=== PATIENT | female | born 1945 | race Caucasian/White ===

== ENCOUNTER 2018-01-12 12:58 | Inpatient (IN) | payer MEDICARE, OTHER, MEDICAID ==
[~2018-01-12] VITALS: Ht 160 cm; Wt 56.2 kg
--- OUTSIDE RECORDS SUMMARY | 2018-01-12 13:08 | XMS REPORT | Continuity of Care Document ---
Author Author [facility] Organization [facility] Address Unknown Phone Unavailable Allergies Active Description Code Type Severity Reaction Onset Reported/Identified Relationship to Patient Clinical Status Yes NKANo Known Allergies NKA Miscellaneous Allergy Unknown N/A 10/09/2008 Medications There is no data. Problems Date Dx Coded Attending Type Code Diagnosis Diagnosed By 03/10/2015 LUCIUS, BOBAN N Ot 518.89 03/10/2015 LUCIUS, BOBAN N Ot 585.3 03/10/2015 LUCIUS, BOBAN N Ot 682.4 03/10/2015 LUCIUS, BOBAN N Ot 715.90 03/10/2015 LUCIUS, BOBAN N Ot 733.00 03/10/2015 LUCIUS, BOBAN N Ot 737.30 03/10/2015 LUCIUS, BOBAN N Ot V10.05 03/10/2015 LUCIUS, BOBAN N Ot V58.69 03/10/2015 LUCIUS, BOBAN N Ot V67.2 03/24/2015 LUCIUS, BOBAN N Ot 518.89 03/24/2015 LUCIUS, BOBAN N Ot 585.3 03/24/2015 LUCIUS, BOBAN N Ot 682.4 03/24/2015 LUCIUS, BOBAN N Ot 715.90 03/24/2015 LUCIUS, BOBAN N Ot 733.00 03/24/2015 LUCIUS, BOBAN N Ot 737.30 03/24/2015 LUCIUS, BOBAN N Ot V10.05 03/24/2015 LUCIUS, BOBAN N Ot V58.69 03/24/2015 LUCIUS, BOBAN N Ot V67.2 03/26/2015 LUCIUS, BOBAN N Ot 518.89 03/26/2015 LUCIUS, BOBAN N Ot 585.3 03/26/2015 LUCIUS, BOBAN N Ot 682.4 03/26/2015 LUCIUS, BOBAN N Ot 715.90 03/26/2015 LUCIUS, BOBAN N Ot 733.00 03/26/2015 LUCIUS, BOBAN N Ot 737.30 03/26/2015 LUCIUS, BOBAN N Ot V10.05 03/26/2015 LUCIUS, BOBAN N Ot V58.69 03/26/2015 LUCIUS, BOBAN N Ot V67.2 03/26/2015 LUCIUS, BOBAN N Ot 518.89 03/26/2015 LUCIUS, BOBAN N Ot 585.3 03/26/2015 LUCIUS, BOBAN N Ot 682.4 03/26/2015 LUCIUS, BOBAN N Ot 715.90 03/26/2015 LUCIUS, BOBAN N Ot 733.00 03/26/2015 LUCIUS, BOBAN N Ot 737.30 03/26/2015 LUCIUS, BOBAN N Ot V10.05 03/26/2015 LUCIUS, BOBAN N Ot V58.69 03/26/2015 LUCIUS, BOBAN N Ot V67.2 03/26/2015 LUCIUS, BOBAN N Ot 518.89 03/26/2015 LUCIUS, BOBAN N Ot 585.3 03/26/2015 LUCIUS, BOBAN N Ot 682.4 03/26/2015 LUCIUS, BOBAN N Ot 715.90 03/26/2015 LUCIUS, BOBAN N Ot 733.00 03/26/2015 LUCIUS, BOBAN N Ot 737.30 03/26/2015 LUCIUS, BOBAN N Ot V10.05 03/26/2015 LUCIUS, BOBAN N Ot V58.69 03/26/2015 LUCIUS, BOBAN N Ot V67.2 04/01/2015 LUCIUS, BOBAN N Ot 518.89 04/01/2015 LUCIUS, BOBAN N Ot 585.3 04/01/2015 LUCIUS, BOBAN N Ot 682.4 04/01/2015 LUCIUS, BOBAN N Ot 715.90 04/01/2015 LUCIUS, BOBAN N Ot 733.00 04/01/2015 LUCIUS, BOBAN N Ot 737.30 04/01/2015 LUCIUS, BOBAN N Ot V10.05 04/01/2015 LUCIUS, BOBAN N Ot V58.69 04/01/2015 LUCIUS, BOBAN N Ot V67.2 Procedures There is no data. Results There is no data. Encounters ACCT No. Visit Date/Time Discharge Status Pt. Type Provider Facility Loc./Unit Complaint [id number] 02/21/2016 13:08:00 02/21/2016 23:59:59 CLS Preadmit DIAN ESTRADA [facility] ONC [id number] 02/16/2015 13:12:00 02/16/2015 23:59:59 CLS Outpatient BENEDICT KAN [facility] ONC [id number] 02/19/2014 13:51:00 02/19/2014 23:59:59 CLS Outpatient [id number] 02/13/2013 09:26:00 02/13/2013 23:59:59 CLS Outpatient
[2018-01-12] MEDS ORDERED: NS IV 1000 ML 1,000 ML IV SCH (14:00)
--- NOTE | 2018-01-12 14:06 | ED GU-Female ---
General Chief Complaint: -Female Stated Complaint: BLOOD IN URINE AND STOOL Source: patient, family Exam Limitations: physical impairment History of Present Illness Date Seen by Provider: January 12, 2018 Time Seen by Provider: 14:01 Initial Comments This 72-year-old white female presents with blood from her rectum and vagina. The patient has had a previous cancer the colon resected several years ago. 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 The patient has marked kyphoscoliosis. She is a difficult historian. It is unclear whether the bleeding has been occurring from the rectum or vagina. It is unclear when this began. The patient does deny pain fever or chill. She is having intermittent moderately severe cramping type abdominal pain which is poorly localized. There has been no history of vomiting. The patient denies similar episode in the past. The patient's daughter relates that the patient is in need of placement as she has been living by herself and is unable to care for herself. Allergies and Home Medications Allergies Coded Allergies: NKANo Known Allergies (Verified Allergy, Unknown, 01/12/18) Patient Home Medication List Home Medication List Reviewed: Yes Review of Systems Constitutional: no symptoms reported EENTM: No hearing loss, No vision loss Respiratory: No cough Cardiovascular: No chest pain Gastrointestinal: abdominal pain; No diarrhea; melena; No vomiting Genitourinary: denies burning, denies discharge; hematuria : No Musculoskeletal: No back pain, No muscle pain Skin: No change in color, No rash Psychiatric/Neurological: No Symptoms Reported Endocrine: No Symptoms Reported Hematologic/Lymphatic: No Symptoms Reported; Denies Easy Bleeding, Denies Easy Bruising Past Jauybdw-Tvqeug-Lvugib Hx Past Med/Social Hx: Reviewed Nursing Past Med/Soc Hx Patient Social History Recent Foreign Travel: No Contact w/Someone Who Travel: No Past Medical History Reproductive Disorders: No (tumor on ovaries) Physical Exam Vital Signs Vital Signs - First Documented 01/12/18 13:20 Temp 98.0 Pulse 98 Resp 18 B/P (MAP) 117/63 (81) Pulse Ox 98 O2 Delivery Nasal Cannula O2 Flow Rate 2.00 Capillary Refill : General Appearance: cachetic, other (the patient has marked kyphosis cysts of the spine. Her kyphosis does not allow for the patient to lie flat.) HEENT: normal ENT inspection Neck: other (severe kyphosis of the spine) Cardiovascular: regular rate, rhythm Respiratory: decreased breath sounds Rectal: other (rectal exam demonstrated no masses. Stool is guaiac negative.) Pelvic: normal external exam, other (Limited pelvic exam demonstrated no vaginal masses. No blood was noted.) Back: other (marked kyphosis of the back) Extremities: normal range of motion Neurologic/Psychiatric: no motor/sensory deficits Skin: normal color, warm/dry; No rash Progress/Results/Core Measures Suspected Sepsis SIRS Temperature: Pulse: Respiratory Rate: Laboratory Tests 01/12/18 14:25: White Blood Count 6.3 Blood Pressure / Mean: Laboratory Tests 01/12/18 14:25: Creatinine 0.71, INR Comment 1.0, Platelet Count 241, Total Bilirubin 0.3 Results/Orders Lab Results Laboratory Tests Test 01/12/18 13:35 01/12/18 14:25 Range/Units Urine Color YELLOW Urine Clarity SLIGHTLY CLOUDY Urine pH 7 5-9 Urine Specific [place] 1.015 L 1.016-1.022 Urine Protein 3+ H NEGATIVE Urine Glucose (UA) NEGATIVE NEGATIVE Urine Ketones NEGATIVE NEGATIVE Urine Nitrite NEGATIVE NEGATIVE Urine Bilirubin NEGATIVE NEGATIVE Urine Urobilinogen NORMAL NORMAL MG/DL Urine Leukocyte Esterase 3+ H NEGATIVE Urine RBC (Auto) 5+ H NEGATIVE Urine RBC 25-50 H /HPF Urine WBC 50-100 H /HPF Urine Squamous Epithelial Cells 5-10 /HPF Urine Crystals NONE /LPF Urine Bacteria MODERATE H /HPF Urine Casts NONE /LPF Urine Mucus NEGATIVE /LPF Urine Culture Indicated YES White Blood Count 6.3 4.3-11.0 10^3/uL Red Blood Count 3.47 L 4.35-5.85 10^6/uL Hemoglobin 11.1 L 11.5-16.0 G/DL Hematocrit 38 35-52 % Mean Corpuscular Volume 110 H 80-99 FL Mean Corpuscular Hemoglobin 32 25-34 PG Mean Corpuscular Hemoglobin Concent 29 L 32-36 G/DL Red Cell Distribution Width 13.6 10.0-14.5 % Platelet Count 241 130-400 10^3/uL Mean Platelet Volume 9.0 7.4-10.4 FL Neutrophils (%) (Auto) 70 42-75 % Lymphocytes (%) (Auto) 14 12-44 % Monocytes (%) (Auto) 11 0-12 % Eosinophils (%) (Auto) 4 0-10 % Basophils (%) (Auto) 0 0-10 % Neutrophils # (Auto) 4.4 1.8-7.8 X 10^3 Lymphocytes # (Auto) 0.9 L 1.0-4.0 X 10^3 Monocytes # (Auto) 0.7 0.0-1.0 X 10^3 Eosinophils # (Auto) 0.3 0.0-0.3 10^3/uL Basophils # (Auto) 0.0 0.0-0.1 10^3/uL Prothrombin Time 12.9 12.2-14.7 SEC INR Comment 1.0 0.8-1.4 Sodium Level 145 135-145 MMOL/L Potassium Level 3.6 3.6-5.0 MMOL/L Chloride Level 97 L 98-107 MMOL/L Carbon Dioxide Level 42 H 21-32 MMOL/L Anion Gap 6 5-14 MMOL/L Blood Urea Nitrogen 41 H 7-18 MG/DL Creatinine 0.71 0.60-1.30 MG/DL Estimat Glomerular Filtration Rate > 60 BUN/Creatinine Ratio 58 Glucose Level 142 H 70-105 MG/DL Calcium Level 10.0 8.5-10.1 MG/DL Total Bilirubin 0.3 0.1-1.0 MG/DL Aspartate Amino Transf (AST/SGOT) 20 5-34 U/L Alanine Aminotransferase (ALT/SGPT) 13 0-55 U/L Alkaline Phosphatase 57 40-136 U/L Total Protein 6.0 L 6.4-8.2 GM/DL Albumin 3.4 3.2-4.5 GM/DL My Orders Orders - KODAK LANCASTER MD Cbc With Automated Diff (01/12/18 13:58) Comprehensive Metabolic Panel (01/12/18 13:58) Protime With Inr (01/12/18 13:58) Ct Abdomen/Pelvis W (01/12/18 13:58) Ns Iv 1000 Ml (Sodium Chloride 0.9%) (01/12/18 14:00) Ua Culture If Indicated (01/12/18 13:58) Iohexol Injection (Omnipaque 350 Mg/Ml 1 (01/12/18 14:15) Ns (Ivpb) (Sodium Chloride 0.9%) (01/12/18 14:15) Urine Culture (01/12/18 13:35) Ceftriaxone Injection (Rocephin Injectio (01/12/18 16:00) Medications Given in ED Current Medications Medications Dose Ordered Sig/Christopher Route Start Time Stop Time Status Last Admin Dose Admin Iohexol 100 ml ONCE ONCE IV 01/12/18 14:15 01/12/18 14:16 DC 01/12/18 15:26 75 ML Sodium Chloride 250 ml ONCE ONCE IV 01/12/18 14:15 01/12/18 14:16 DC 01/12/18 15:26 80 ML Vital Signs/I&O 01/12/18 13:20 Temp 98.0 Pulse 98 Resp 18 B/P (MAP) 117/63 (81) Pulse Ox 98 O2 Delivery Nasal Cannula O2 Flow Rate 2.00 Capillary Refill : Progress Note : Time: 16:02 Progress Note The patient, who is oxygen dependent, arrived without 02. Patient sat on arrival was [address] of abdomen demonstrated apparent left pyelonephritis. Patient received a gram Rocephin IV. I placed a call to Dr. Henry for the patient. I have written for IV Rocephin. Patient was admitted to Dr. Henry's service for further evaluation and care. Departure Communication (Admissions) Time/Spoke to Admitting Phy: 16:05 Dr. Henry. Impression Primary Impression: Hypoxia Additional Impression: Pyelonephritis Disposition: ADMITTED INPATIENT Condition: Improved Admissions Decision to Admit Reason: Admit from ER (General) Decision to Admit/Date: January 12, 2018 Time/Decision to Admit Time: 16:18 Departure-Patient Inst. Referrals: MARIO QUINTERO DO (PCP/Family) Primary Care Physician KODAK LANCASTER MD January 12, 2018 14:05
[2018-01-12] MEDS ORDERED: IOHEXOL 350 MG/ML 100 ML (OMNIPAQUE 350) VIAL IV ONE (14:15)
[2018-01-12] MEDS ORDERED: NS 250 ML (IVPB) BAG IV ONE (14:15)
[2018-01-12 14:34] LABS: BASOPHILS % (AUTO) 0 % (0-10); EOSINOPHILS # (AUTO) 0.3 10^3/uL (0.0-0.3); EOSINOPHILS % (AUTO) 4 % (0-10); HEMATOCRIT 38 % (35-52); HEMOGLOBIN 11.1 G/DL (11.5-16.0); LYMPHOCYTES # (AUTO) 0.9 X 10^3 (1.0-4.0); LYMPHOCYTES % (AUTO) 14 % (12-44); MEAN CORPUSCULAR HEMOGLOBIN 32 PG (25-34); MEAN CORPUSCULAR HGB CONC 29 G/DL (32-36); MEAN CORPUSCULAR VOLUME 110 FL (80-99); MONOCYTES # (AUTO) 0.7 X 10^3 (0.0-1.0); MONOCYTES % (AUTO) 11 % (0-12); NEUTROPHILS # (AUTO) 4.4 X 10^3 (1.8-7.8); NEUTROPHILS % (AUTO) 70 % (42-75); PLATELET COUNT 241 10^3/uL (130-400); RED BLOOD COUNT 3.47 10^6/uL (4.35-5.85); RED CELL DISTRIBUTION WIDTH 13.6 % (10.0-14.5); WHITE BLOOD COUNT 6.3 10^3/uL (4.3-11.0)
[2018-01-12 14:45] LABS: PROTHROMBIN TIME PATIENT 12.9 SEC (12.2-14.7)
[2018-01-12 14:49] LABS: BUN/CREATININE RATIO 58; CARBON DIOXIDE 42 MMOL/L (21-32); CHLORIDE 97 MMOL/L (98-107); CREATININE SERUM 0.71 MG/DL (0.60-1.30); GFR ESTIMATED > 60; GLUCOSE 142 MG/DL (70-105); POTASSIUM 3.6 MMOL/L (3.6-5.0); SODIUM 145 MMOL/L (135-145)
[2018-01-12 14:50] LABS: ALANINE AMINOTRANSFERASE 13 U/L (0-55); ALBUMIN 3.4 GM/DL (3.2-4.5); ALKALINE PHOSPHATASE 57 U/L (40-136); BILIRUBIN,TOTAL 0.3 MG/DL (0.1-1.0)
[2018-01-12 15:10] LABS: BILIRUBIN,URINE NEGATIVE (NEGATIVE); CLARITY,URINE SLIGHTLY CLOUDY; COLOR,URINE YELLOW; GLUCOSE, URINE (UA) NEGATIVE (NEGATIVE); KETONES,URINE NEGATIVE (NEGATIVE); LEUKOCYTE ESTERASE ,URINE 3+ (NEGATIVE); NITRITE,URINE NEGATIVE (NEGATIVE); PH,URINE 7 (5-9); PROTEIN,URINE 3+ (NEGATIVE); UROBILINOGEN,URINE NORMAL (NORMAL)
[2018-01-12 15:19] LABS: RBC,URINE 25-50 /HPF; WBC,URINE 50-100 /HPF
[2018-01-12 15:20] LABS: BACTERIA,URINE MODERATE /HPF
--- NOTE | 2018-01-12 15:51 | Diagnostic Imaging Report ---
PROCEDURE: CT abdomen and pelvis with contrast. TECHNIQUE: Multiple contiguous axial images were obtained through the abdomen and pelvis after administration of intravenous contrast. INDICATION: Hematuria. History of colon cancer. CORRELATION STUDY: None. FINDINGS: There is rather marked severity scoliosis with significant distortion of the lower chest, abdominal and pelvic anatomy. Lung bases with asymmetric areas of atelectasis, likely largely attributable to the scoliosis. No definitive basilar infiltrate. There is, however, presence of small left pleural effusion with likely minimal adjacent atelectasis. Heart size is enlarged. Slight heterogeneous attenuation of the liver parenchyma. No focal lesion. The spleen, gallbladder and pancreas appear generally unremarkable. Common bile duct is very mildly prominent. Nonobstructing stone of inferior pole of the right kidney measures 14 mm. There does appear to be slight asymmetric areas of enhancement about the renal parenchyma, particularly the left kidney, superiorly. Additionally, there is probable small cyst. No definitive evidence for obstructive uropathy. However, there is some limited overall contrast filling in the collecting system despite delayed imaging. Abdominal aorta with a significant tortuous course following the curvature of the spine. Mild wall calcification. No aneurysmal dilatation. Moderate severity fecal retention. Anastomotic suture line in the right mid abdomen. There is suggestion of some wall thickening about the duodenum. No definitive evidence for obstruction. Urinary bladder is unremarkable. Uterus appears absent. There is compression deformity of L3 vertebral body, age indeterminate but likely nonacute. IMPRESSION: 1. Questionable asymmetric enhancement of the superior pole of the left kidney. The possibility of pyelonephritis would be difficult to exclude. No obstructing right renal stone. 2. Contracted gallbladder. Common bile duct is mildly prominent but otherwise unremarkable. 3. Surgical changes of anastomotic suture line in right mid abdomen. There does appear to be some wall thickening of the duodenum which can be associated with underlying duodenitis. Correlation for symptoms. 4. Small right pleural effusion. Dictated by: Dictated on workstation # [id number]
[2018-01-12] MEDS ORDERED: cefTRIAXone INJECTION 1,000 MG in NS (IVPB) 50 ML IV ONE (16:00)
[2018-01-12 17:35] VITALS: BP 137/82
[2018-01-12] MEDS: NS IV 1000 ML 1,000 ML IV SCH (17:58)
[2018-01-12] MEDS ORDERED: TOPI25TA10 PO (18:20)
[2018-01-12] MEDS ORDERED: POTA20TA8 PO (18:20)
[2018-01-12] MEDS ORDERED: OXYB5TAB9 PO (18:20)
[2018-01-12] MEDS ORDERED: TRAM50TA2 PO (18:20)
[2018-01-12] MEDS ORDERED: AMIT25TA9 PO (18:20)
[2018-01-12] MEDS ORDERED: HYDR50TA3 PO (18:33)
[2018-01-12] MEDS ORDERED: CALC-225 PO (18:33)
[2018-01-12] MEDS ORDERED: ASPI-586 PO (18:33)
[2018-01-12] MEDS ORDERED: LEVO88TA54 PO (18:33)
[2018-01-12] MEDS ORDERED: BACL10TA PO (18:33)
[2018-01-12] MEDS ORDERED: OMG1KC PO (18:33)
[2018-01-12] MEDS ORDERED: MELO15TA39 PO (18:33)
[2018-01-12] MEDS ORDERED: RT-ALBUINH IN (18:33)
[2018-01-12] MEDS ORDERED: PANT40TA3 PO (18:33)
[2018-01-12] MEDS ORDERED: CITA10TA7 PO (18:33)
[2018-01-12] MEDS ORDERED: PRAV40TA2 PO (18:33)
[2018-01-12] MEDS ORDERED: CHOL5000 PO (18:38)
[2018-01-12] MEDS ORDERED: FERROUS (18:38)
[2018-01-12] MEDS ORDERED: TIOT18CA2 IH (18:38)
[2018-01-12] MEDS ORDERED: FLUT1DIS28 IH (18:38)
[2018-01-12 19:30] VITALS: BP 113/55
[2018-01-12] MEDS ORDERED: AMITRIPTYLINE HCL 25 MG PO SCH (21:00)
[2018-01-12] MEDS ORDERED: NON-FORMULARY MEDICATION 1 EA EA (Oxybutynin Chloride 5 MG) PO SCH (21:00)
[2018-01-12] MEDS ORDERED: OXYBUTYNIN (DITROPAN) 5 MG TAB ONE (21:21)
[2018-01-12] MEDS ORDERED: AMITRIPTYLINE 25 MG (ELAVIL) TAB PO ONE (21:21)
[2018-01-12] MEDS: toPIRamate 25 MG (TOPAMAX) TAB PO SCH (21:27)
[2018-01-12] MEDS: KCL 20 MEQ TAB (K-DUR) PO SCH (21:27)
[2018-01-13] VITALS: BP 124/57
[2018-01-13 04:00] VITALS: BP 99/52
[2018-01-13 04:39] LABS: BILIRUBIN,URINE NEGATIVE (NEGATIVE); CLARITY,URINE VERY CLOUDY; COLOR,URINE AMBER; GLUCOSE, URINE (UA) NEGATIVE (NEGATIVE); KETONES,URINE NEGATIVE (NEGATIVE); LEUKOCYTE ESTERASE ,URINE 3+ (NEGATIVE); NITRITE,URINE NEGATIVE (NEGATIVE); PH,URINE 6.5 (5-9); PROTEIN,URINE 3+ (NEGATIVE); UROBILINOGEN,URINE NORMAL (NORMAL)
[2018-01-13 04:43] LABS: BACTERIA,URINE LARGE /HPF; RBC,URINE 50-100 /HPF; SQUAMOUS EPITHELIAL CELL,UR 0-2 /HPF
[2018-01-13 04:53] LABS: BASOPHILS % (AUTO) 0 % (0-10); EOSINOPHILS # (AUTO) 0.2 10^3/uL (0.0-0.3); EOSINOPHILS % (AUTO) 3 % (0-10); HEMATOCRIT 39 % (35-52); LYMPHOCYTES # (AUTO) 0.7 X 10^3 (1.0-4.0); LYMPHOCYTES % (AUTO) 10 % (12-44); MEAN CORPUSCULAR HEMOGLOBIN 32 PG (25-34); MEAN CORPUSCULAR HGB CONC 28 G/DL (32-36); MEAN CORPUSCULAR VOLUME 114 FL (80-99); MEAN PLATELET VOLUME 9.3 FL (7.4-10.4); MONOCYTES % (AUTO) 14 % (0-12); NEUTROPHILS # (AUTO) 5.2 X 10^3 (1.8-7.8); NEUTROPHILS % (AUTO) 73 % (42-75); PLATELET COUNT 233 10^3/uL (130-400); RED BLOOD COUNT 3.45 10^6/uL (4.35-5.85); RED CELL DISTRIBUTION WIDTH 13.9 % (10.0-14.5); WHITE BLOOD COUNT 7.1 10^3/uL (4.3-11.0)
[2018-01-13 05:03] LABS: ALANINE AMINOTRANSFERASE 17 U/L (0-55); ALBUMIN 3.4 GM/DL (3.2-4.5); ALKALINE PHOSPHATASE 76 U/L (40-136); BILIRUBIN,TOTAL 0.2 MG/DL (0.1-1.0); BUN/CREATININE RATIO 53; CALCIUM 9.2 MG/DL (8.5-10.1); CARBON DIOXIDE 35 MMOL/L (21-32); CHLORIDE 101 MMOL/L (98-107); CREATININE SERUM 0.68 MG/DL (0.60-1.30); GFR ESTIMATED > 60; GLUCOSE 144 MG/DL (70-105); POTASSIUM 4.5 MMOL/L (3.6-5.0); SODIUM 145 MMOL/L (135-145); TOTAL PROTEIN 5.9 GM/DL (6.4-8.2)
[2018-01-13] MEDS: NS IV 1000 ML 1,000 ML IV SCH ×2 (05:18→18:41)
[2018-01-13 08:00] VITALS: BP 120/62
[2018-01-13] MEDS ORDERED: OXYBUTYNIN (DITROPAN) 5 MG TAB PO SCH (09:00)
[2018-01-13] MEDS: toPIRamate 25 MG (TOPAMAX) TAB PO SCH ×3 (09:48→21:26)
[2018-01-13] MEDS: LEVOTHYROXINE 88 MCG (LEVOTHORID) TAB PO NR ×2 (09:48→12:37)
[2018-01-13] MEDS: KCL 20 MEQ TAB (K-DUR) PO SCH ×2 (09:48→12:37)
[2018-01-13 12:00] VITALS: BP 128/63
--- NOTE | 2018-01-13 12:09 | History & Physical-Hospitalist ---
History of Present Illness HPI/Chief Complaint Mrs. Orourke is a frail 72-year-old white female with severe scoliosis who was apparently brought in by family members last night after there was report of either vaginal or rectal bleeding. It is not clear and the patient was extremely poor historian who appeared to be slightly confused. There was no evidence for any ongoing bleeding but evaluation revealed significant pyuria with bacteriuria and CT scan findings suspicious for left sided pyelonephritis. Patient was subsequently admitted for treatment of her infection. She was sleeping soundly upon my arrival and did not arouse to gentle stimulation. She appeared to be in no acute distress with stable vital signs and oxygen level. Her daughter states that she has not been doing well at all and no longer has inability to care for herself. Date Seen 01/13/18 Time Seen by Provider: 10:30 Attending Physician Kodak Gould MD PCP Antione Richardson DO Referring Physician Date of Admission January 12, 2018 at 16:00 Home Medications & Allergies Home Medications Reviewed patient Home Medication Reconciliation performed by pharmacy medication reconciliations psychiatric technician assistant and/or nursing. Patients Allergies have been reviewed. Allergies Allergies Coded Allergies NKANo Known Allergies (Verified Allergy, Unknown, 01/12/18) Past Mqajsiq-Dodlqd-Herjir Hx Past Med/Social Hx: Reviewed Nursing Past Med/Soc Hx Patient Social History Alcohol Use: Denies Use Recreational Drug Use: No Smoking Status: Never a Smoker 2nd Hand Smoke Exposure: No Physical Abuse Screen: No Sexual Abuse: No Recent Foreign Travel: No Contact w/other who traveled: No Recent Hopitalizations: No Recent Infectious Disease Expo: No Immunizations Up To Date Tetanus Booster (TDap): Unknown Date of Pneumonia Vaccine: Jun 03, 2017 Seasonal Allergies Seasonal Allergies: No Past Medical History Reproductive: No (tumor on ovaries) Sexually Transmitted Disease: No HIV/AIDS: No Female Reproductive Disorders: Denies Genitourinary: UTI-Chronic Musculoskeletal: Back Injury, Scoliosis, Chronic Back Pain, Contracture Cancer: Colon Did You Recieve Any Treatments: Yes What Type of Treatment Did You: Chemotherapy History of Blood Disorders: No Review of Systems Constitutional: see HPI Physical Exam Physical Exam Vital Signs Vital Signs - First Documented 01/12/18 13:20 Temp 98.0 Pulse 98 Resp 18 B/P (MAP) 117/63 (81) Pulse Ox 98 O2 Delivery Nasal Cannula O2 Flow Rate 2.00 Capillary Refill : Less Than 3 SecondsLess Than 3 Seconds General Appearance: No Apparent Distress, Chronically ill, Thin Neck: Other (Severely angulated neck position forward flexed no JVD adenopathy or bruits noted.) Respiratory: Chest Non Tender, Lungs Clear, Normal Breath Sounds, No Accessory Muscle Use, No Respiratory Distress Cardiovascular: Regular Rate, Rhythm, No Edema, No Gallop, No JVD, No Murmur, Normal Peripheral Pulses Gastrointestinal: Normal Bowel Sounds, No Organomegaly, No Pulsatile Mass, Non Tender, Soft Extremity: No Pedal Edema, Other (Significant extremity muscle wasting noted nurse reports findings compatible with stage I coccygeal and gluteal decubitus as there are some nonblanching erythema there is irritation from apparent chronic incontinence.) Skin: Warm/Dry, Pallor Results Results/Procedures Labs Laboratory Tests 01/12/18 14:25 01/13/18 04:10 Patient resulted labs reviewed. Assessment/Plan Admission Diagnosis 1. Urinary tract infection with likely pyelonephritis and Sirs. Continue IV Rocephin culture and sensitivity pending. 2. Severe scoliosis apparently long-standing. 3. Multifactorial failure to thrive. 4. Urinary retention aggravating number 1 relative contraindication to oxybutynin will hold. 5. Sedation since receiving usual amitriptyline dose will switch to a when necessary order of 10 mg at at bedtime. 6. Patient will need care home home placement on discharge. Admission Status: Inpatient Order (span 2 midnights) Reason for Inpatient Admission: See admission diagnosis Critical Care Critically Ill Patient Clinical Quality Measures DVT/VTE Risk/Contraindication: Risk Factor Score Per Nursin RFS Level Per Nursing on Admit: 4+=Very High KODAK GOULD MD January 13, 2018 12:09
[2018-01-13] MEDS ORDERED: RT-ALBUTEROL SULF 2.5 MG/3 ML PRE-MIX VIAL INH PRN (12:15)
[2018-01-13 16:13] VITALS: BP 146/71
[2018-01-13] MEDS ORDERED: cefTRIAXone INJECTION 1,000 MG in NS (IVPB) 50 ML IV SCH (17:00)
[2018-01-13 20:04] VITALS: BP 158/80
[2018-01-13] MEDS ORDERED: AMITRIPTYLINE 10 MG (ELAVIL) TAB PO PRN (21:00)
[2018-01-13] MEDS ORDERED: AMITRIPTYLINE 25 MG (ELAVIL) TAB PO SCH (21:00)
[2018-01-13] MEDS ORDERED: lisINopril 10 MG (PRINIVIL) TABLET ONE (21:17)
[2018-01-13] MEDS: lisINopril 10 MG (PRINIVIL) TABLET PO SCH (21:25)
[2018-01-14] VITALS (9 sets, daily range): BP systolic 137–186; BP diastolic 70–90
[2018-01-14 04:33] LABS: BASOPHILS % (AUTO) 0 % (0-10); EOSINOPHILS % (AUTO) 0 % (0-10); HEMATOCRIT 39 % (35-52); HEMOGLOBIN 11.3 G/DL (11.5-16.0); LYMPHOCYTES # (AUTO) 0.7 X 10^3 (1.0-4.0); LYMPHOCYTES % (AUTO) 11 % (12-44); MEAN CORPUSCULAR HEMOGLOBIN 33 PG (25-34); MEAN CORPUSCULAR HGB CONC 29 G/DL (32-36); MEAN CORPUSCULAR VOLUME 112 FL (80-99); MEAN PLATELET VOLUME 9.3 FL (7.4-10.4); MONOCYTES # (AUTO) 0.6 X 10^3 (0.0-1.0); MONOCYTES % (AUTO) 9 % (0-12); NEUTROPHILS # (AUTO) 5.2 X 10^3 (1.8-7.8); NEUTROPHILS % (AUTO) 80 % (42-75); PLATELET COUNT 206 10^3/uL (130-400); RED BLOOD COUNT 3.47 10^6/uL (4.35-5.85); RED CELL DISTRIBUTION WIDTH 13.5 % (10.0-14.5); WHITE BLOOD COUNT 6.5 10^3/uL (4.3-11.0)
[2018-01-14 04:53] LABS: BUN/CREATININE RATIO 58; CALCIUM 9.2 MG/DL (8.5-10.1); CARBON DIOXIDE 34 MMOL/L (21-32); CHLORIDE 101 MMOL/L (98-107); CREATININE SERUM 0.52 MG/DL (0.60-1.30); GFR ESTIMATED > 60; GLUCOSE 157 MG/DL (70-105); POTASSIUM 3.5 MMOL/L (3.6-5.0); SODIUM 145 MMOL/L (135-145)
[2018-01-14] MEDS: LEVOTHYROXINE 88 MCG (LEVOTHORID) TAB PO SCH (05:33)
[2018-01-14] MEDS: toPIRamate 25 MG (TOPAMAX) TAB PO SCH ×2 (09:56→21:05)
--- NOTE | 2018-01-14 14:06 | Progress Note-Hospitalist ---
Subjective HPI/CC On Admission Date Seen by Provider: January 14, 2018 Time Seen by Provider: 11:15 Mrs. Orourke is a frail 72-year-old white female with severe scoliosis who was apparently brought in by family members last night after there was report of either vaginal or rectal bleeding. It is not clear and the patient was extremely poor historian who appeared to be slightly confused. There was no evidence for any ongoing bleeding but evaluation revealed significant pyuria with bacteriuria and CT scan findings suspicious for left sided pyelonephritis. Patient was subsequently admitted for treatment of her infection. She was sleeping soundly upon my arrival and did not arouse to gentle stimulation. She appeared to be in no acute distress with stable vital signs and oxygen level. Her daughter states that she has not been doing well at all and no longer has inability to care for herself. Subjective/Events-last exam Pt complaints of a headache and that the bed is uncomfortable. Otherwise she has no complaints. Discussed potential need for SNF at [place]. Objective Exam Vital Signs Vital Signs Date Time Temp Pulse Resp B/P (MAP) Pulse Ox O2 Delivery O2 Flow Rate FiO2 01/14/18 13:32 97.9 103 18 177/86 (116) 99 Nasal Cannula 2.00 Capillary Refill : Less Than 3 SecondsLess Than 3 Seconds General Appearance: No Apparent Distress, Chronically ill Neck: Other (severe angulation due to scoliosis) Respiratory: Lungs Clear, No Respiratory Distress Gastrointestinal: Normal Bowel Sounds, Non Tender, Soft Back: Other (severe scoliosis noted) Extremity: No Calf Tenderness, No Pedal Edema Neurologic/Psychiatric: Alert, Oriented x3 Results/Procedures Lab Laboratory Tests 01/14/18 04:20 Patient resulted labs reviewed. Assessment/Plan Assessment and Plan Assess & Plan/Chief Complaint 1. Urinary tract infection due to proteus- will transition to Keflex per sensitivities 2. Severe scoliosis apparently long-standing- will consult PT/OT 3. Multifactorial failure to thrive. 4. Oversedation with reported home dose of Elavil. 10mg now ordered prn only 6. Debility- will likely need SNF at [place]. Social work consulted Clinical Quality Measures DVT/VTE Risk/Contraindication: Risk Factor Score Per Nursin RFS Level Per Nursing on Admit: 4+=Very High ANDREW CHOUDHARY MD January 14, 2018 2:06 pm
[2018-01-14] MEDS: NS IV 1000 ML 1,000 ML IV SCH (14:27)
[2018-01-14] MEDS: CEPHALEXIN 250 MG (KEFLEX) CAP PO SCH ×2 (15:16→21:05)
--- NOTE | 2018-01-14 16:01 | Physical Therapy Evaluation ---
PT Evaluation-General Medical Diagnosis Admission Date January 12, 2018 at 16:00 Medical Diagnosis: polynephritis, UTI Onset Date: January 12, 2018 Therapy Diagnosis Therapy Diagnosis: weakness Height/Weight Height (Feet): 5 Height (Inches): 3.00 Weight (Pounds): 124 Weight (Ounces): 0.0 Precautions Precautions/Isolations: Fall Prevention, Standard Precautions, Pressure Ulcer Weight Bear Status Right Lower Extremity: Right Weight Bearing/Tolerated Left Lower Extremity: Left Weight Bearing/Tolerated Referral Physician: Christopher Reason for Referral: Evaluation/Treatment Medical History Additional Medical History severe scoliosis, UTI, colon CA, failure to thrive Current History Pt admitted with above diagnosis. Failure to thrive at home. Family feels alf placement may be indicated. Reviewed History: Yes Social History Home: Single Level Current Living Status: Alone Entry Into Home: Stairs With Railing Prior/Core FIM Prior Level of Function Functional [place] Measure 0=Not Assessed/NA 4=Minimal Assistance 1=Total Assistance 5=Supervision or Setup 2=Maximal Assistance 6=Modified [place] 3=Moderate Assistance 7=Complete [place] Physician and family report she was living at home mod indep with all mobility. Good family support per family members present. PT Evaluation-Current Subjective "I'm tired." "I don't want to get up right now." Eventually agrees to participate with PT. Family present and strongly encouraged participation. Pain Numeric Pain Scale: 0-No Pain Location: No Pain Reported Objective Patient Orientation: Person, Confused (slightly; she is difficult to understand and soft spoken) Problem Solving: Fair Attachments: Oxygen, IV ROM/Strength ROM Lower Extremities WFL for transfers and gait Strength Lower Extremities strength B LE is grossly 3/5 throughout. LImited functional activity tolerance as well. Integumentary/Posture Integumentary refer to nursing notes. Bowel Incontinence: No Bladder Incontinence: No Posture Severe thoracic kyphosis; head is forward and rotated right to the extent that her chin rests on her chest. right scapula protracted and spine rotated. slumped at lumbar spine in sitting. Neuromuscular (Tone, Coordination, Reflexes) functional for transfers and gait progresion. Sensory Vision: Functional Hearing: Functional Hand Dominance: Right Sensation Right Lower Extremit: Intact Sensation Left Lower Extremity: Intact Transfers Functional [place] Measure 0=Not Assessed/NA 4=Minimal Assistance 1=Total Assistance 5=Supervision or Setup 2=Maximal Assistance 6=Modified [place] 3=Moderate Assistance 7=Complete [place] Transfers (B, C, W/C) (FIM): 2 Supine to/from Sit: 2 Sit to/from Stand: 2 max assist with all transfers and bed mobility; limited by gross weakness, decreased problem solving/participation and her postural deficits make moving difficult. Pt stood EOB for a few minutes with mod assist for balance and using FWW. Unable to sidestep or take steps forward. Balance Sitting Static: Fair Sitting Dynamic: Fair Standing Static: Fair Standing Dynamic: Fair Assessment/Needs Pt presents with a decline in functional transfers and mobility with gross weakness. She was able to mobilize in her home at [facility]; so will beneift from skilled PT intervention to work on functional mobility to allow her to return to mod indep mobility. Rehab Potential: Guarded PT [facility] Goals Watchstander Goals PT Watchstander Goals Time Frame: January 19, 2018 Transfers (B,C,W/C) (FIM): 4 Gait (FIM): 2 Gait distance (FIM): 1=up to 49 ft Distance: 20 ft Gait Assistive Device: FWW PT Plan Problem List Problem List: Activity Tolerance, Functional Strength, Safety, Balance, Gait, Transfer, Bed Mobility Treatment/Plan Treatment Plan: Continue Plan of Care Treatment Plan: Bed Mobility, Education, Functional Activity Golden, Functional Strength, Therapeutic Exercise, Transfers Treatment Duration: January 19, 2018 Frequency: 6 times per week Estimated Hrs Per Day: .25 hour per day Patient and/or Family Agrees t: Yes Safety Risks/Education Patient Education: Safety Issues Teaching Recipient: Patient Teaching Methods: Discussion Response to Teaching: Reinforcement Needed Discharge Recommendations Therapy D/C Recommendations: Prison (TCU/NH) Time/GCodes Time In: 1445 Time Out: 1505 Total Billed Treatment Time: 20 Total Billed Treatment visit EVM 20 BROOKE LOPEZ PT January 14, 2018 16:01
[2018-01-14] MEDS: lisINopril 10 MG (PRINIVIL) TABLET PO SCH (21:05)
[2018-01-15] VITALS: BP 149/77
[2018-01-15] MEDS: LEVOTHYROXINE 88 MCG (LEVOTHORID) TAB PO SCH (05:10)
[2018-01-15 08:00] VITALS: BP 157/74
--- NOTE | 2018-01-15 08:58 | Occupational Therapy Eval ---
OT Evaluation-General/PLF Medical Diagnosis Admission Date January 12, 2018 at 16:00 Medical Diagnosis: pyelonephritis, UTI Onset Date: January 12, 2018 Therapy Diagnosis Therapy Diagnosis: decr self care, weakness, decr funct mobility, decr act anthony Height/Weight Height (Feet): 5 Height (Inches): 3.00 Weight (Pounds): 124 Weight (Ounces): 0.0 Precautions Precautions/Isolations: Fall Prevention, Standard Precautions, Pressure Ulcer Safety Interventions: Bed Exit Alarm Referral Physician: Christopher Referral Reason: Evaluation/Treatment Medical History Pertinent Medical History: Arthritis, CAD, COPD Additional Medical History Colon and ovarian cancer. Sever kyphosis. Chronic back pain. Frequent falls. Depression. Decr vision and hearing Current History ADmitted through ED with bleeding from rectum or vagina. Failure to thrive at home alone. Anticipated discharge to [facility] today. Reviewed History: Yes Social History Home: Single Level Current Living Status: Alone Entry Into Home: Stairs With Railing ADL-Prior Level of Function ADL PLOF Comments Pt reported that she was able to manage her basic self care needs at home and didn't drive. Currently lives alone but previously was in NH for several years. DME/Equipment Comments Unknown equipment OT Current Status Subjective Pt seen in room, up in bed, agreeable to OT. Reported pain in neck and pillow positioned to support head Appearance Lethargic but able to answer some questions like but not current year Current Hand Dominance: Right Upper Extremity ROM Grossly functional except limited shoulder flex. Upper Extremity Strength Pt had difficulty following instructions for strength testing. Grossly 3/5 bilat ADL-Treatment ADL-Current Pt needed assistance to get a drink of water. Nursing reported that she needs help eating and is incontinent. Pt reported max assist to sit EOB and mod assist to stand but unable to take steps. Limited by scoliosis and neck position. Functional [place] Measure 0=Not Assessed/NA 4=Minimal Assistance 1=Total Assistance 5=Supervision or Setup 2=Maximal Assistance 6=Modified [place] 3=Moderate Assistance 7=Complete IndependenceIRFPAI Quality Coding Scale 6 Independent with activity with or without an assistive device 5 Patient requires set up or clean up by helper. Patient completes activity by themselves 4 Supervision or touching assist (CGA). [place] provide cues , steadying assist 3 The helper provides less than half the effort to complete the activity 2 The helper provides more than half the effort to complete the activity 1 Dependent. The helper does all the effort to complete an activity 7 Patient refused to complete or attempt activity 9 The patient did not perform the activity before the current illness or injury 88 Not attempted due to Medical conditions or safety concerns Education OT Patient Education: Purpose of tx/functional activities, Rehab process Teaching Recipient: Patient Teaching Methods: Discussion Response to Teaching: Verbalize Understanding OT Halfway Goals Chief Of Pediatric Urology Goals Time Frame: January 18, 2018 Eating (FIM): 5 Grooming(FIM): 5 Upper Body Dressing(FIM): 4 Lower Body Dressing(FIM): 3 Toileting(FIM): 3 Toilet/Commode Transfer(FIM): 3 Additional Goals: 2-Verbalize Understanding, 3-ImproveStrength/Golden 1=Demonstrate adherence to instructed precautions during ADL tasks. 2=Patient will verbalize/demonstrate understanding of assistive devices/ modifications for ADL. 3=Patient will improve strength/tolerance for activity to enable patient to perform ADL's. OT Education/Plan Problem List/Assessment Assessment: Decreased Activ Tolerance, Decreased UE Strength, Dependent Transfers, Impaired Self-Care Skills Pt would benefit from skilled OT to increase her independence in basic self care Discharge Recommendations Plan/Recommendations: Continue POC Therapy D/C Recommendations: Longterm (TCU/NH) Treatment Plan/Plan of Care Treatment,Training & Education: Yes Patient would benefit from OT for education, treatment and training to promote independence in ADL's, mobility, safety and/or upper extremity function for ADL' s. Plan of Care: ADL Retraining, Functional Mobility, UE Funct Exercise/Act Treatment Duration: January 18, 2018 Frequency: 4 times per week Estimated Hrs Per Day: .5 hour per day Agreement: Yes Rehab Potential: Guarded Time/GCodes Start Time: 08:40 Stop Time: 08:55 Total Time Billed (hr/min): 15 Billed Treatment Time visit, 15 minutes evaluation moderate intensity LOBO BOSE OT January 15, 2018 08:58
[2018-01-15] MEDS ORDERED: CEPH250C PO (09:19)
[2018-01-15] MEDS: toPIRamate 25 MG (TOPAMAX) TAB PO SCH (09:55)
[2018-01-15] MEDS: CEPHALEXIN 250 MG (KEFLEX) CAP PO SCH (09:55)
--- NOTE | 2018-01-15 10:27 | Physical Therapy Daily Note ---
PT Daily Note-Current Subjective Patient agrees to exercises. Pain Numeric Pain Scale: 0-No Pain Location: No Pain Reported Mental Status Patient Orientation: Confused Attachments: Oxygen Transfers Functional [place] Measure 0=Not Assessed/NA 4=Minimal Assistance 1=Total Assistance 5=Supervision or Setup 2=Maximal Assistance 6=Modified [place] 3=Moderate Assistance 7=Complete IndependenceIRFPAI Quality Coding Scale 6 Independent with activity with or without an assistive device 5 Patient requires set up or clean up by helper. Patient completes activity by themselves 4 Supervision or touching assist (CGA). [place] provide cues , steadying assist 3 The helper provides less than half the effort to complete the activity 2 The helper provides more than half the effort to complete the activity 1 Dependent. The helper does all the effort to complete an activity 7 Patient refused to complete or attempt activity 9 The patient did not perform the activity before the current illness or injury 88 Not attempted due to Medical conditions or safety concerns Transfers (B, C, W/C) (FIM): 2 Scootin Sit to/from Stand: 2 Bed to/from Chair: 2 Weight Bearing Right Lower Extremity: Right Weight Bearing/Tolerated Left Lower Extremity: Left Weight Bearing/Tolerated Exercises Seated Therapy Exercises: Ankle pumps, Long arc quads Seated Reps: 15 (2 sets AAROM) Assessment Patient continues to require maximum assist for all mobility. Patient up in recliner with needs met. Plan dismissal to [place] this week. PT Office Helper Clerical Goals Office Helper Clerical Goals PT Shelter Goals Time Frame: January 19, 2018 Transfers (B,C,W/C) (FIM): 4 Gait (FIM): 2 Gait distance (FIM): 1=up to 49 ft Distance: 20 ft Gait Assistive Device: FWW PT Plan Treatment/Plan Treatment Plan: Continue Plan of Care Treatment Plan: Bed Mobility, Education, Functional Activity Golden, Functional Strength, Therapeutic Exercise, Transfers Treatment Duration: January 19, 2018 Frequency: 6 times per week Estimated Hrs Per Day: .25 hour per day Patient and/or Family Agrees t: Yes Time/GCodes Time In: 958 Time Out: 1008 Total Billed Treatment Time: 10 Total Billed Treatment 1 visit EX 10 min MANDEEP DE LA O PT January 15, 2018 10:27
[2018-01-15 14:58] VITALS: BP 157/74
--- NOTE | 2018-01-15 15:03 | Discharge Summary-Hospitalist ---
Diagnosis/Chief Complaint Date of Admission January 12, 2018 at 4:00 pm Date of Discharge Discharge Date: January 15, 2018 Admission Diagnosis 1. Urinary tract infection with likely pyelonephritis and Sirs. 2. Severe scoliosis apparently long-standing. 3. Multifactorial failure to thrive. 4. Urinary retention aggravating number 1 relative contraindication to oxybutynin will hold. 5. Sedation since receiving usual amitriptyline dose 6. Patient will need [facility] home placement on discharge. Discharge Diagnosis Pyelonephritis Discharge Summary Discharge Physical Exam Allergies: Coded Allergies: NKANo Known Allergies (Verified Allergy, Unknown, 01/12/18) Vitals & I&Os Vital Signs Date Time Temp Pulse Resp B/P (MAP) Pulse Ox O2 Delivery O2 Flow Rate FiO2 01/15/18 09:48 90 2.00 01/15/18 09:25 Nasal Cannula 01/15/18 08:00 98.9 98 18 157/74 (101) General Appearance: Alert, Oriented X3 Respiratory: Clear to Auscultation Cardiovascular: Regular Rate Hospital Course Pt was admitted for pyelonephritis and altered mental status. She was very debility and lethargic on admission which slowly improved. She was evaluated by PT/OT and was deemed a good candidate for skilled placement and continued therapy. She was transitioned to oral antibiotics to complete course and discharged in stable condition to [facility] on 2lpm via [place]. As her PCP is not local I did discuss this case with ROBERTA Lopes to take over care while she was admitted to [facility]. Labs (last 24 hrs) Microbiology 01/13/18 Urine Culture - Final, Complete NO GROWTH Patient resulted labs reviewed. Discussion & Recommendations Discharge Planning: >30 minutes discharge planning Discharge Home Medications: Active Scripts Active Cephalexin 250 Mg Capsule 500 Mg PO BID 5 Days Reported Spiriva (Tiotropium Eld[place]) 1 Inh Aerp 1 Inh IH DAILY LAST FILLED 09/14/2014 Advair 100-50 Diskus (Fluticasone/Salmeterol) 1 Each Blst.w.dev 1 Puff IH BID LAST FILLED 07/17/2015 [Ferrous] Vitamin D3 (Cholecalciferol (Vitamin D3)) 5,000 Unit Capsule 5,000 Unit PO DAILY Aspir 81 (Aspirin) 81 Mg Tablet.dr 81 Mg PO DAILY Proair Hfa (Albuterol Sulfate) 1 Puff Puff 2 Puff IN Q4H PRN LAST FILLED 01/25/2017 Fish Oil 1,000 mg Capsule ([place] 3 Polyunsat Fatty Acids) 1,000 Mg Cap 1,000 Mg PO TID Calcium 500 + Vit D 200 Tablet (Calcium Carbonate/Vitamin D3) 1 Each Tablet 1 Tab PO BID Pravastatin Sodium 40 Mg Tablet 40 Mg PO HS Pantoprazole Sodium 40 Mg Tablet.dr 40 Mg PO DAILY 0630 DOSE Levothyroxine Sodium 88 Mcg Tablet 88 Mcg PO DAILY 0630 DOSE Citalopram HBr (Citalopram Hydrobromide) 10 Mg Tablet 10 Mg PO DAILY Meloxicam 15 Mg Tablet 15 Mg PO DAILY Klor-Con M20 (Potassium Chloride) 20 Meq Tab.er.prt 20 Meq PO BID Topiramate 25 Mg Tablet 25 Mg PO BID Instructions to patient/family Please see electronic discharge instructions given to patient. Clinical Quality Measures DVT/VTE Risk/Contraindication: Risk Factor Score Per Nursin RFS Level Per Nursing on Admit: 4+=Very High ANDREW CHOUDHARY MD January 15, 2018 3:03 pm
== END 2018-01-15 14:50 | DRG 690 ==
LOC: EDUNIT# 12:58 → ER 13:00 → 4TH 16:00
PROVIDERS: ADMIT Internal Medicine; ATTEND Internal Medicine
DX: N12 Tubulo-interstitial nephritis, not specified as acute or chronic (principal); R09.02 Hypoxemia; R33.0 Drug induced retention of urine; M41.9 Scoliosis, unspecified; L89.151 Pressure ulcer of sacral region, stage 1; L89.311 Pressure ulcer of right buttock, stage 1; R32 Unspecified urinary incontinence; R62.7 Adult failure to thrive; T44.3X5A Adverse effect of other parasympatholytics [anticholinergics and antimuscarinics] and spasmolytics, initial encounter; R40.0 Somnolence; T43.015A Adverse effect of tricyclic antidepressants, initial encounter; R53.81 Other malaise; Z85.038 Personal history of other malignant neoplasm of large intestine; Z92.21 Personal history of antineoplastic chemotherapy; Z99.81 Dependence on supplemental oxygen
CPT/HCPCS: 36415; 74177; 80048; 80053; 81000; 85025; 85610; 87077; 87088; 87186; 94760; 94761; 96361; 96365

== ENCOUNTER 2018-01-20 08:15 | Emergency (ER) | payer MEDICARE, OTHER, MEDICAID ==
[~2018-01-20] VITALS: Ht 160 cm; Wt 56.2 kg
[~2018-01-20 08:15] MED LIST: AMIT25TA9 PO; ASPI-586 PO; BACL10TA PO; CALC-225 PO; CEPH250C PO; CHOL5000 PO; CITA10TA7 PO; FERROUS; FLUT1DIS28 IH; HYDR50TA3 PO; LEVO88TA54 PO; MELO15TA39 PO; OMG1KC PO; OXYB5TAB9 PO; PANT40TA3 PO; POTA20TA8 PO; PRAV40TA2 PO; RT-ALBUINH IN; TIOT18CA2 IH; TOPI25TA10 PO; TRAM50TA2 PO
[2018-01-20 08:46] LABS: BASOPHILS % (AUTO) 0 % (0-10); EOSINOPHILS % (AUTO) 0 % (0-10); HEMATOCRIT 41 % (35-52); HEMOGLOBIN 11.8 G/DL (11.5-16.0); LYMPHOCYTES # (AUTO) 0.5 X 10^3 (1.0-4.0); LYMPHOCYTES % (AUTO) 6 % (12-44); MEAN CORPUSCULAR HEMOGLOBIN 33 PG (25-34); MEAN CORPUSCULAR HGB CONC 29 G/DL (32-36); MEAN CORPUSCULAR VOLUME 114 FL (80-99); MEAN PLATELET VOLUME 9.2 FL (7.4-10.4); MONOCYTES # (AUTO) 0.6 X 10^3 (0.0-1.0); MONOCYTES % (AUTO) 7 % (0-12); NEUTROPHILS % (AUTO) 87 % (42-75); PLATELET COUNT 268 10^3/uL (130-400); RED BLOOD COUNT 3.58 10^6/uL (4.35-5.85); RED CELL DISTRIBUTION WIDTH 13.9 % (10.0-14.5); WHITE BLOOD COUNT 8.1 10^3/uL (4.3-11.0)
--- NOTE | 2018-01-20 09:02 | ED General ---
General Chief Complaint: Respiratory Problems Stated Complaint: SHORTNESS OF AIR Nursing Triage Note: WAS SENT TO ER BY [facility] WITH SOA. ON EMS ARRIVAL FOUND PATIENT SAO2 TO BE IN 60'S ON 1L OF 02.PLACED ON6L BY EMS SAO2 UPTO 96% Nursing Sepsis Screen: No Definite Risk Source of Information: Patient Exam Limitations: No Limitations History of Present Illness Date Seen by Provider: January 20, 2018 Time Seen by Provider: 08:59 Initial Comments The patient is a 72-year-old white female presently on care home at [facility]. She was found to have hypoxia this morning with the stated SaO2 is in the 60s. EMS reports they found her at 1 L/m by nasal cannula. Increasing the flow brought her up into the 90s. She was just here with a urinary tract infection and pyelonephritis. This was from 01/12 through 01/15. It was noted on discharge that she had a severe scoliosis of long-standing. There was also noted to be a multifactorial failure to thrive. It is noted from the hospital record that she required O2 at 2-3 L/m to achieve satisfactory SaO2's. Allergies and Home Medications Allergies Coded Allergies: BUNNYANo Known Allergies (Verified Allergy, Unknown, 01/12/18) Home Medications Albuterol Sulfate 1 Puff Puff, 2 PUFF IN Q4H PRN for SHORTNESS OF BREATH, ( Reported) LAST FILLED 01/25/2017 Aspirin 81 Mg Tablet., 81 MG PO DAILY, (Reported) Calcium Carbonate/Vitamin D3 1 Each Tablet, 1 TAB PO BID, (Reported) Cephalexin 250 Mg Capsule, 500 MG PO BID Prescribed by: ANDREW CHOUDHARY on 01/15/18 0919 Cholecalciferol (Vitamin D3) 5,000 Unit Capsule, 5,000 UNIT PO DAILY, (Reported) Citalopram Hydrobromide 10 Mg Tablet, 10 MG PO DAILY, (Reported) Fluticasone/Salmeterol 1 Each Blst.w.dev, 1 PUFF IH BID, (Reported) LAST FILLED 07/17/2015 Levothyroxine Sodium 88 Mcg Tablet, 88 MCG PO DAILY, (Reported) 0630 DOSE Meloxicam 15 Mg Tablet, 15 MG PO DAILY, (Reported) [place] 3 Polyunsat Fatty Acids 1,000 Mg Cap, 1,000 MG PO TID, (Reported) Pantoprazole Sodium 40 Mg Tablet.dr, 40 MG PO DAILY, (Reported) 0630 DOSE Potassium Chloride 20 Meq Tab.er.prt, 20 MEQ PO BID, (Reported) Pravastatin Sodium 40 Mg Tablet, 40 MG PO HS, (Reported) Tiotropium [place] 1 Inh Aerp, 1 INH IH DAILY, (Reported) LAST FILLED 09/14/2014 Topiramate 25 Mg Tablet, 25 MG PO BID, (Reported) Patient Home Medication List Home Medication List Reviewed: Yes Review of Systems Constitutional: see HPI EENTM: no symptoms reported Respiratory: short of breath, other Cardiovascular: No edema, No palpitations, No syncope Gastrointestinal: no symptoms reported Genitourinary: incontinence Skin: no symptoms reported Psychiatric/Neurological: No Symptoms Reported Hematologic/Lymphatic: No Symptoms Reported Immunological/Allergic: no symptoms reported Past Tvaqdke-Zuilfy-Gffstk Hx Patient Social History Alcohol Use: Denies Use Recreational Drug Use: No Smoking Status: Unknown if Ever Smoked 2nd Hand Smoke Exposure: No Recent Foreign Travel: No Contact w/Someone Who Travel: No Recent Infectious Disease Expo: No Recent Hopitalizations: No Immunizations Up To Date Tetanus Booster (TDap): Unknown Date of Pneumonia Vaccine: Jun 03, 2017 Seasonal Allergies Seasonal Allergies: No Past Medical History Surgeries: Yes Respiratory: Yes COPD Cardiac: No Neurological: Yes Reproductive Disorders: No (tumor on ovaries) Female Reproductive Disorders: Denies Sexually Transmitted Disease: No HIV/AIDS: No Genitourinary: Yes UTI-Chronic Gastrointestinal: Yes (COLON CANCER) Musculoskeletal: Yes Back Injury, Scoliosis, Chronic Back Pain, Contracture Endocrine: Yes HEENT: No Cancer: Yes Colon Did You Recieve Any Treatments: Yes What Type of Treatment Did You: Chemotherapy Psychosocial: No Integumentary: No Blood Disorders: No Physical Exam Vital Signs Vital Signs - First Documented 01/20/18 08:15 Temp 97.6 Pulse 100 Resp 18 B/P (MAP) 183/95 (124) Pulse Ox 96 O2 Delivery Nasal Cannula O2 Flow Rate 6.00 Capillary Refill : Less Than 3 Seconds General Appearance: Chronically ill Focused Exam Lactate Level 01/20/18 08:30: Lactic Acid Level 0.68 Lactic Acid Level Laboratory Tests Test 01/20/18 08:30 Lactic Acid Level 0.68 MMOL/L (0.50-2.00) Progress/Results/Core Measures Suspected Sepsis Recent Fever Within 48 Hours: No Infection Criteria Present: Suspected New Infection New/Unexplained Altered Menta: No Sepsis Screen: No Definite Risk SIRS Temperature:97.6 Pulse: 100 Respiratory Rate: 18 Laboratory Tests 01/20/18 08:30: White Blood Count 8.1 Blood Pressure 183 /95 Mean: 124 01/20/18 08:30: Lactic Acid Level 0.68 Laboratory Tests 01/20/18 08:30: Creatinine 0.55L, Platelet Count 268, Total Bilirubin 0.4 Results/Orders Lab Results Laboratory Tests Test 01/20/18 08:30 01/20/18 09:34 Range/Units White Blood Count 8.1 4.3-11.0 10^3/uL Red Blood Count 3.58 L 4.35-5.85 10^6/uL Hemoglobin 11.8 11.5-16.0 G/DL Hematocrit 41 35-52 % Mean Corpuscular Volume 114 H 80-99 FL Mean Corpuscular Hemoglobin 33 25-34 PG Mean Corpuscular Hemoglobin Concent 29 L 32-36 G/DL Red Cell Distribution Width 13.9 10.0-14.5 % Platelet Count 268 130-400 10^3/uL Mean Platelet Volume 9.2 7.4-10.4 FL Neutrophils (%) (Auto) 87 H 42-75 % Lymphocytes (%) (Auto) 6 L 12-44 % Monocytes (%) (Auto) 7 0-12 % Eosinophils (%) (Auto) 0 0-10 % Basophils (%) (Auto) 0 0-10 % Neutrophils # (Auto) 7.0 1.8-7.8 X 10^3 Lymphocytes # (Auto) 0.5 L 1.0-4.0 X 10^3 Monocytes # (Auto) 0.6 0.0-1.0 X 10^3 Eosinophils # (Auto) 0.0 0.0-0.3 10^3/uL Basophils # (Auto) 0.0 0.0-0.1 10^3/uL Neutrophils % (Manual) 86 % Lymphocytes % (Manual) 3 % Monocytes % (Manual) 9 % Eosinophils % (Manual) 1 % Band Neutrophils 1 % Blood Morphology Comment NORMAL Sodium Level 146 H 135-145 MMOL/L Potassium Level 4.5 3.6-5.0 MMOL/L Chloride Level 95 L 98-107 MMOL/L Carbon Dioxide Level 41 H 21-32 MMOL/L Anion Gap 10 5-14 MMOL/L Blood Urea Nitrogen 23 H 7-18 MG/DL Creatinine 0.55 L 0.60-1.30 MG/DL Estimat Glomerular Filtration Rate > 60 BUN/Creatinine Ratio 42 Glucose Level 132 H 70-105 MG/DL Lactic Acid Level 0.68 0.50-2.00 MMOL/L Calcium Level 9.9 8.5-10.1 MG/DL Total Bilirubin 0.4 0.1-1.0 MG/DL Aspartate Amino Transf (AST/SGOT) 23 5-34 U/L Alanine Aminotransferase (ALT/SGPT) 20 0-55 U/L Alkaline Phosphatase 76 40-136 U/L Total Protein 6.5 6.4-8.2 GM/DL Albumin 3.6 3.2-4.5 GM/DL Urine Color YELLOW Urine Clarity SLIGHTLY CLOUDY Urine pH 6 5-9 Urine Specific [place] 1.020 1.016-1.022 Urine Protein 3+ H NEGATIVE Urine Glucose (UA) NEGATIVE NEGATIVE Urine Ketones 1+ H NEGATIVE Urine Nitrite NEGATIVE NEGATIVE Urine Bilirubin NEGATIVE NEGATIVE Urine Urobilinogen NORMAL NORMAL MG/DL Urine Leukocyte Esterase 1+ H NEGATIVE Urine RBC (Auto) 5+ H NEGATIVE Urine RBC TNTC H /HPF Urine WBC 10-25 H /HPF Urine Squamous Epithelial Cells NONE /HPF Urine Crystals NONE /LPF Urine Bacteria MODERATE H /HPF Urine Casts NONE /LPF Urine Mucus NEGATIVE /LPF Urine Culture Indicated YES My Orders Orders - BARBARA TUCKER MD Cbc With Automated Diff (01/20/18 08:24) Comprehensive Metabolic Panel (01/20/18 08:24) Ua Culture If Indicated (01/20/18 08:24) Blood Culture (01/20/18 08:24) Chest 1 View, Ap/Pa Only (01/20/18 08:24) Lactic Acid Analyzer (01/20/18 08:24) Manual Differential (01/20/18 08:30) Urine Culture (01/20/18 09:34) Vital Signs/I&O 01/20/18 01/20/18 08:15 09:29 Temp 97.6 Pulse 100 104 Resp 18 18 B/P (MAP) 183/95 (124) 159/85 (109) Pulse Ox 96 97 O2 Delivery Nasal Cannula Nasal Cannula O2 Flow Rate 6.00 Capillary Refill : Less Than 3 Seconds Blood Pressure Mean: 124 Departure Communication (Admissions) The patient responded well to a higher flow O2. Her general situation is terminal given the degree of deformity of her spine. She has a restrictive lung problem as a function of that. This was discussed with her family. Arrangements should be made for hospice/comfort care status. Impression Primary Impression: hypoxia Additional Impression: severe scoliosis with concomitant restrictive lung disease. Disposition: Condition: Stable/Unchanged Departure-Patient Inst. Decision time for Depature: 11:01 Referrals: MARIO QUINTERO DO (PCP) Primary Care Physician Add. Discharge Instructions: All discharge instructions reviewed with patient and/or family. Voiced understanding. Increase FiO2 as needed to achieve an SaO2 in the 90-94 percent range. Arrange with family/provider to have a hospice consultation. BARBARA TUCKER MD January 20, 2018 09:02
[2018-01-20 09:05] LABS: ALANINE AMINOTRANSFERASE 20 U/L (0-55); ALBUMIN 3.6 GM/DL (3.2-4.5); ALKALINE PHOSPHATASE 76 U/L (40-136); BILIRUBIN,TOTAL 0.4 MG/DL (0.1-1.0); BUN/CREATININE RATIO 42; CALCIUM 9.9 MG/DL (8.5-10.1); CARBON DIOXIDE 41 MMOL/L (21-32); CHLORIDE 95 MMOL/L (98-107); CREATININE SERUM 0.55 MG/DL (0.60-1.30); GFR ESTIMATED > 60; GLUCOSE 132 MG/DL (70-105); POTASSIUM 4.5 MMOL/L (3.6-5.0); SODIUM 146 MMOL/L (135-145); TOTAL PROTEIN 6.5 GM/DL (6.4-8.2)
[2018-01-20 09:07] LABS: BAND NEUTROPHILS 1 %; NEUTROPHILS % (MANUAL) 86 %
[2018-01-20 09:08] LABS: EOSINOPHILS % (MANUAL) 1 %; LYMPHOCYTES % (MANUAL) 3 %; MONOCYTES % (MANUAL) 9 %; RBC MORPH NORMAL
--- NOTE | 2018-01-20 09:11 | Diagnostic Imaging Report ---
Indication: Shortness of breath. Baseline Findings: Portable chest shows marked scoliosis. There are bilateral pleural effusions larger on the right. There also appears to be some right basilar infiltrate and/or atelectasis. The heart is enlarged. No evidence of pulmonary edema. IMPRESSION: Bilateral pleural effusions with right basilar atelectasis and/or infiltrate as well. Dictated by: Dictated on workstation # [id number]
[2018-01-20 09:29] VITALS: BP 159/85
[2018-01-20 09:40] LABS: BILIRUBIN,URINE NEGATIVE (NEGATIVE); CLARITY,URINE SLIGHTLY CLOUDY; COLOR,URINE YELLOW; GLUCOSE, URINE (UA) NEGATIVE (NEGATIVE); KETONES,URINE 1+ (NEGATIVE); LEUKOCYTE ESTERASE ,URINE 1+ (NEGATIVE); NITRITE,URINE NEGATIVE (NEGATIVE); PH,URINE 6 (5-9); PROTEIN,URINE 3+ (NEGATIVE); UROBILINOGEN,URINE NORMAL (NORMAL)
[2018-01-20 09:51] LABS: RBC,URINE TNTC /HPF
[2018-01-20 09:52] LABS: BACTERIA,URINE MODERATE /HPF
[2018-01-20 11:45] VITALS: BP 162/82
--- OUTSIDE RECORDS SUMMARY | 2018-01-21 16:01 | XMS REPORT | Continuity of Care Document ---
Author Author [facility] Organization [facility] Address Unknown Phone Unavailable Allergies Active Description Code Type Severity Reaction Onset Reported/Identified Relationship to Patient Clinical Status Yes NKANo Known Allergies NKA Miscellaneous Allergy Unknown N/A 01/12/2018 Medications There is no data. Problems Date [...] 04/01/2015 LUCIUS, BOBAN N Ot V10.05 04/01/2015 LUCUIS, BOBAN N Ot V58.69 04/01/2015 LUCIUS, BOBAN N Ot V67.2 01/12/2018 Ot 153.9 MALIGNANT CANDELARIA COLON NOS 01/12/2018 LUCIUS, BOBAN N Ot 153.4 MALIGNANT NEOPLASM CECUM 01/12/2018 LUCIUS, BOBAN N Ot 518.89 OTHER DISEASES OF LUNG, NEC 01/12/2018 LUCIUS, BOBAN N Ot 585.3 CHRONIC KIDNEY DISEASE, STAGE III (MODER 01/12/2018 LUCIUS, BOBAN N Ot 715.90 OSTEOARTHROS NOS-UNSPEC 01/12/2018 LUCIUS, BOBAN N Ot 737.30 IDIOPATHIC SCOLIOSIS 01/12/2018 LUCIUS, BOBAN N Ot V45.72 ACQRD ABSENCE INTESTINE - LARGE/SMALL 01/12/2018 LUCIUS, BOBAN N Ot V58.69 OTH MED,LT,CURRENT USE 01/12/2018 LUCIUS, BOBAN N Ot 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 01/12/2018 LUCIUS, BOBAN N Ot 153.4 MALIGNANT NEOPLASM CECUM 01/12/2018 LUCIUS, BOBAN N Ot 518.89 OTHER DISEASES OF LUNG, NEC 01/12/2018 LUCIUS, BOBAN N Ot 585.3 CHRONIC KIDNEY DISEASE, STAGE III (MODER 01/12/2018 LUCIUS, BOBAN N Ot 715.90 OSTEOARTHROS NOS-UNSPEC 01/12/2018 LUCIUS, BOBAN N Ot 737.30 IDIOPATHIC SCOLIOSIS 01/12/2018 LUCIUS, BOBAN N Ot V45.72 ACQRD ABSENCE INTESTINE - LARGE/SMALL 01/12/2018 LUCIUS, BOBAN N Ot V58.69 OTH MED,LT,CURRENT USE 01/12/2018 LUCIUS, BOBAN N Ot 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 01/12/2018 LUCIUS, BOBAN N Ot 518.89 OTHER DISEASES OF LUNG, NEC 01/12/2018 LUCIUS, BOBAN N Ot 585.3 CHRONIC KIDNEY DISEASE, STAGE III (MODER 01/12/2018 LUCIUS, BOBAN N Ot 682.4 CELLULITIS OF HAND 01/12/2018 LUCIUS, BOBAN N Ot 715.90 OSTEOARTHROS NOS-UNSPEC 01/12/2018 LUCIUS, BOBAN N Ot 733.00 OSTEOPOROSIS NOS 01/12/2018 LUCIUS, BOBAN N Ot 737.30 IDIOPATHIC SCOLIOSIS 01/12/2018 LUCIUS, BOBAN N Ot V10.05 HX OF COLONIC MALIGNANCY 01/12/2018 BENEDICT KAN Ot V58.69 OTH MED,LT,CURRENT USE 01/12/2018 BENEDICT KAN Ot V67.2 CHEMOTHERAPY FOLLOW-UP 01/14/2018 KODAK GOULD MD Ot 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, STAGE 1 01/14/2018 KODAK GOULD MD Ot L89.311 PRESSURE ULCER OF RIGHT BUTTOCK, STAGE 1 01/14/2018 KODAK GOULD MD Ot M41.9 SCOLIOSIS, UNSPECIFIED 01/14/2018 KODAK GOULD MD Ot N12 TUBULO-INTERSTITIAL NEPHRITIS, NOT SPCF 01/14/2018 KODAK GOULD MD Ot R09.02 HYPOXEMIA 01/14/2018 KODAK GOULD MD Ot R32 UNSPECIFIED URINARY INCONTINENCE 01/14/2018 KODAK GOULD MD Ot R33.0 DRUG INDUCED RETENTION OF URINE 01/14/2018 KODAK GOULD MD Ot R40.0 SOMNOLENCE 01/14/2018 KODAK GOULD MD Ot R62.7 ADULT FAILURE TO THRIVE 01/14/2018 KODAK GOULD MD Ot T43.015A ADVERSE EFFECT OF TRICYCLIC ANTIDEPRESSA 01/14/2018 KODAK GOULD MD Ot T44.3X5A ADVERSE EFFECT OF PARASYMPATHOLYTICS AND 01/14/2018 KODAK GOULD MD Ot Z85.038 PERSONAL HISTORY OF MALIGNANT NEOPLASM O 01/14/2018 KODAK GOULD MD Ot Z92.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 CHEMO 01/14/2018 KODAK GOULD MD Ot Z99.81 DEPENDENCE ON SUPPLEMENTAL OXYGEN 01/15/2018 KODAK GOULD MD Ot 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, STAGE 1 01/15/2018 KODAK GOULD MD Ot L89.311 PRESSURE ULCER OF RIGHT BUTTOCK, STAGE 1 01/15/2018 KODAK GOULD MD Ot M41.9 SCOLIOSIS, UNSPECIFIED 01/15/2018 KODAK GOULD MD Ot N12 TUBULO-INTERSTITIAL NEPHRITIS, NOT SPCF 01/15/2018 KODAK GOULD MD Ot R09.02 HYPOXEMIA 01/15/2018 KODAK GOULD MD Ot R32 UNSPECIFIED URINARY INCONTINENCE 01/15/2018 KODAK GOULD MD Ot R33.0 DRUG INDUCED RETENTION OF URINE 01/15/2018 KODAK GOULD MD Ot R40.0 SOMNOLENCE 01/15/2018 KODAK GOULD MD Ot R53.81 OTHER MALAISE 01/15/2018 KODAK GOULD MD Ot R62.7 ADULT FAILURE TO THRIVE 01/15/2018 KODAK GOULD MD Ot T43.015A ADVERSE EFFECT OF TRICYCLIC ANTIDEPRESSA 01/15/2018 KODAK GOULD MD Ot T44.3X5A ADVERSE EFFECT OF PARASYMPATHOLYTICS AND 01/15/2018 KODAK GOULD MD Ot Z85.038 PERSONAL HISTORY OF MALIGNANT NEOPLASM O 01/15/2018 KODAK GOULD MD Ot Z92.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 CHEMO 01/15/2018 KODAK GOULD MD Ot Z99.81 DEPENDENCE ON SUPPLEMENTAL OXYGEN Procedures There is no data. Results Test Result Range Complete urinalysis with reflex to culture - 01/12/18 13:35 Urine color determination YELLOW NRG Urine clarity determination SLIGHTLY CLOUDY NRG Urine pH measurement by test strip 7 5-9 Specific gravity of urine by test strip 1.015 1.016- 1.022 Urine protein assay by test strip, semi-quantitative 3+ NEGATIVE Urine glucose detection by automated test strip NEGATIVE NEGATIVE Erythrocytes detection in urine sediment by light microscopy 5+ NEGATIVE Urine ketones detection by automated test strip NEGATIVE NEGATIVE Urine nitrite detection by test strip NEGATIVE NEGATIVE Urine total bilirubin detection by test strip NEGATIVE NEGATIVE Urine urobilinogen measurement by automated test strip (mass/volume) NORMAL NORMAL Urine leukocyte esterase detection by dipstick 3+ NEGATIVE Automated urine sediment erythrocyte count by microscopy (number/high power field) [HPF] NRG Automated urine sediment leukocyte count by microscopy (number/high power field ) [HPF] NRG Bacteria detection in urine sediment by light microscopy MODERATE NRG Squamous epithelial cells detection in urine sediment by light microscopy 5-10 NRG Crystals detection in urine sediment by light microscopy NONE NRG Casts detection in urine sediment by light microscopy NONE NRG Mucus detection in urine sediment by light microscopy NEGATIVE NRG Complete urinalysis with reflex to culture YES NRG Bacterial urine culture - 01/12/18 13:35 Bacterial urine culture [id number] NRG COLONY COUNT 10,000/ML - 100,000/ML NRG FTX;REPORTABLE SENSITIVITY REPORTED 01/13 15:20 NRG FREE TEXT ENTRY 3 MIXED GRAM POSITIVE MINH <10,000/ML NRG Bacterial susceptibility panel - 01/12/18 13:35 Gentamicin susceptibility test by minimum inhibitory concentration < = NRG Trimethoprim/sulfamethoxazole susceptibility test by minimum inhibitoryconcentration R NRG Ampicillin susceptibility test by minimum inhibitory concentration > = NRG Tobramycin susceptibility test by minimum inhibitory concentration < = NRG Cefazolin susceptibility test by minimum inhibitory concentration S NRG Ceftriaxone susceptibility test by minimum inhibitory concentration S NRG Ampicillin/sulbactam susceptibility test by minimum inhibitory concentration S NRG Piperacillin/tazobactam susceptibility test by minimum inhibitory concentration S NRG Ciprofloxacin susceptibility test by minimum inhibitory concentration <= NRG Meropenem susceptibility test by minimum inhibitory concentration < = NRG Nitrofurantoin susceptibility test by minimum inhibitory concentration 128 NRG Aztreonam susceptibility test by minimum inhibitory concentration S NRG Complete blood count (CBC) with automated white blood cell (WBC) differential - 01/12/18 14:25 Blood leukocytes automated count (number/volume) 6.3 10*3/uL 4.3-11.0 Blood erythrocytes automated count (number/volume) 3.47 10*6/uL 4.35-5.85 Venous blood hemoglobin measurement (mass/volume) 11.1 g/dL 11.5-16.0 Blood hematocrit (volume fraction) 38 % 35-52 Automated erythrocyte mean corpuscular volume 110 [foz_us] 80-99 Automated erythrocyte mean corpuscular hemoglobin (mass per erythrocyte) 32 pg 25-34 Automated erythrocyte mean corpuscular hemoglobin concentration measurement ( mass/volume) 29 g/dL 32-36 Automated erythrocyte distribution width ratio 13.6 % 10.0-14.5 Automated blood platelet count (count/volume) 241 10*3/uL 130-400 Automated blood platelet mean volume measurement 9.0 [foz_us] 7.4-10.4 Automated blood neutrophils/100 leukocytes 70 % 42-75 Automated blood lymphocytes/100 leukocytes 14 % 12-44 Blood monocytes/100 leukocytes 11 % 0-12 Automated blood eosinophils/100 leukocytes 4 % 0-10 Automated blood basophils/100 leukocytes 0 % 0-10 Blood neutrophils automated count (number/volume) 4.4 10*3 1.8-7.8 Blood lymphocytes automated count (number/volume) 0.9 10*3 1.0-4.0 Blood monocytes automated count (number/volume) 0.7 10*3 0.0-1.0 Automated eosinophil count 0.3 10*3/uL 0.0-0.3 Automated blood basophil count (count/volume) 0.0 10*3/uL 0.0-0.1 PT panel in platelet poor plasma by coagulation assay - 01/12/18 14:25 Prothrombin time (PT) in platelet poor plasma by coagulation assay 12.9 s 12.2-14.7 INR in platelet poor plasma or blood by coagulation assay 1.0 0.8-1.4 Comprehensive metabolic panel - 01/12/18 14:25 Serum or plasma sodium measurement (moles/volume) 145 mmol/L 135-145 Serum or plasma potassium measurement (moles/volume) 3.6 mmol/L 3.6-5.0 Serum or plasma chloride measurement (moles/volume) 97 mmol/L 98-107 Carbon dioxide 42 mmol/L 21-32 Serum or plasma anion gap determination (moles/volume) 6 mmol/L 5-14 Serum or plasma urea nitrogen measurement (mass/volume) 41 mg/dL 7-18 Serum or plasma creatinine measurement (mass/volume) 0.71 mg/dL 0.60-1.30 Serum or plasma urea nitrogen/creatinine mass ratio 58 NRG Serum or plasma creatinine measurement with calculation of estimated glomerular filtration rate > NRG Serum or plasma glucose measurement (mass/volume) 142 mg/dL 70-105 Serum or plasma calcium measurement (mass/volume) 10.0 mg/dL 8.5-10.1 Serum or plasma total bilirubin measurement (mass/volume) 0.3 mg/dL 0.1-1.0 Serum or plasma alkaline phosphatase measurement (enzymatic activity/volume) 57 U/L 40-136 Serum or plasma aspartate aminotransferase measurement (enzymatic activity/ volume) 20 U/L 5-34 Serum or plasma alanine aminotransferase measurement (enzymatic activity/volume ) 13 U/L 0-55 Serum or plasma protein measurement (mass/volume) 6.0 g/dL 6.4-8.2 Serum or plasma albumin measurement (mass/volume) 3.4 g/dL 3.2-4.5 Complete blood count (CBC) with automated white blood cell (WBC) differential - 01/13/18 04:10 Blood leukocytes automated count (number/volume) 7.1 10*3/uL 4.3-11.0 Blood erythrocytes automated count (number/volume) 3.45 10*6/uL 4.35-5.85 Venous blood hemoglobin measurement (mass/volume) 11.0 g/dL 11.5-16.0 Blood hematocrit (volume fraction) 39 % 35-52 Automated erythrocyte mean corpuscular volume 114 [foz_us] 80-99 Automated erythrocyte mean corpuscular hemoglobin (mass per erythrocyte) 32 pg 25-34 Automated erythrocyte mean corpuscular hemoglobin concentration measurement ( mass/volume) 28 g/dL 32-36 Automated erythrocyte distribution width ratio 13.9 % 10.0-14.5 Automated blood platelet count (count/volume) 233 10*3/uL 130-400 Automated blood platelet mean volume measurement 9.3 [foz_us] 7.4-10.4 Automated blood neutrophils/100 leukocytes 73 % 42-75 Automated blood lymphocytes/100 leukocytes 10 % 12-44 Blood monocytes/100 leukocytes 14 % 0-12 Automated blood eosinophils/100 leukocytes 3 % 0-10 Automated blood basophils/100 leukocytes 0 % 0-10 Blood neutrophils automated count (number/volume) 5.2 10*3 1.8-7.8 Blood lymphocytes automated count (number/volume) 0.7 10*3 1.0-4.0 Blood monocytes automated count (number/volume) 1.0 10*3 0.0-1.0 Automated eosinophil count 0.2 10*3/uL 0.0-0.3 Automated blood basophil count (count/volume) 0.0 10*3/uL 0.0-0.1 Comprehensive metabolic panel - 01/13/18 04:10 Serum or plasma sodium measurement (moles/volume) 145 mmol/L 135-145 Serum or plasma potassium measurement (moles/volume) 4.5 mmol/L 3.6-5.0 Serum or plasma chloride measurement (moles/volume) 101 mmol/L 98-107 Carbon dioxide 35 mmol/L 21-32 Serum or plasma anion gap determination (moles/volume) 9 mmol/L 5-14 Serum or plasma urea nitrogen measurement (mass/volume) 36 mg/dL 7-18 Serum or plasma creatinine measurement (mass/volume) 0.68 mg/dL 0.60-1.30 Serum or plasma urea nitrogen/creatinine mass ratio 53 NRG Serum or plasma creatinine measurement with calculation of estimated glomerular filtration rate > NRG Serum or plasma glucose measurement (mass/volume) 144 mg/dL 70-105 Serum or plasma calcium measurement (mass/volume) 9.2 mg/dL 8.5-10.1 Serum or plasma total bilirubin measurement (mass/volume) 0.2 mg/dL 0.1-1.0 Serum or plasma alkaline phosphatase measurement (enzymatic activity/volume) 76 U/L 40-136 Serum or plasma aspartate aminotransferase measurement (enzymatic activity/ volume) 23 U/L 5-34 Serum or plasma alanine aminotransferase measurement (enzymatic activity/volume ) 17 U/L 0-55 Serum or plasma protein measurement (mass/volume) 5.9 g/dL 6.4-8.2 Serum or plasma albumin measurement (mass/volume) 3.4 g/dL 3.2-4.5 Complete urinalysis with reflex to culture - 01/13/18 04:35 Urine color determination MARIBELL NRG Urine clarity determination VERY CLOUDY NRG Urine pH measurement by test strip 6.5 5-9 Specific gravity of urine by test strip 1.010 1.016- 1.022 Urine protein assay by test strip, semi-quantitative 3+ NEGATIVE Urine glucose detection by automated test strip NEGATIVE NEGATIVE Erythrocytes detection in urine sediment by light microscopy 5+ NEGATIVE Urine ketones detection by automated test strip NEGATIVE NEGATIVE Urine nitrite detection by test strip NEGATIVE NEGATIVE Urine total bilirubin detection by test strip NEGATIVE NEGATIVE Urine urobilinogen measurement by automated test strip (mass/volume) NORMAL NORMAL Urine leukocyte esterase detection by dipstick 3+ NEGATIVE Automated urine sediment erythrocyte count by microscopy (number/high power field) [HPF] NRG Automated urine sediment leukocyte count by microscopy (number/high power field ) [HPF] NRG Bacteria detection in urine sediment by light microscopy LARGE NRG Squamous epithelial cells detection in urine sediment by light microscopy 0-2 NRG Crystals detection in urine sediment by light microscopy NONE NRG Casts detection in urine sediment by light microscopy NONE NRG Mucus detection in urine sediment by light microscopy SMALL NRG Complete urinalysis with reflex to culture YES NRG Bacterial urine culture - 01/13/18 04:35 Bacterial urine culture NG NRG Complete blood count (CBC) with automated white blood cell (WBC) differential - 01/14/18 04:20 Blood leukocytes automated count (number/volume) 6.5 10*3/uL 4.3-11.0 Blood erythrocytes automated count (number/volume) 3.47 10*6/uL 4.35-5.85 Venous blood hemoglobin measurement (mass/volume) 11.3 g/dL 11.5-16.0 Blood hematocrit (volume fraction) 39 % 35-52 Automated erythrocyte mean corpuscular volume 112 [foz_us] 80-99 Automated erythrocyte mean corpuscular hemoglobin (mass per erythrocyte) 33 pg 25-34 Automated erythrocyte mean corpuscular hemoglobin concentration measurement ( mass/volume) 29 g/dL 32-36 Automated erythrocyte distribution width ratio 13.5 % 10.0-14.5 Automated blood platelet count (count/volume) 206 10*3/uL 130-400 Automated blood platelet mean volume measurement 9.3 [foz_us] 7.4-10.4 Automated blood neutrophils/100 leukocytes 80 % 42-75 Automated blood lymphocytes/100 leukocytes 11 % 12-44 Blood monocytes/100 leukocytes 9 % 0-12 Automated blood eosinophils/100 leukocytes 0 % 0-10 Automated blood basophils/100 leukocytes 0 % 0-10 Blood neutrophils automated count (number/volume) 5.2 10*3 1.8-7.8 Blood lymphocytes automated count (number/volume) 0.7 10*3 1.0-4.0 Blood monocytes automated count (number/volume) 0.6 10*3 0.0-1.0 Automated eosinophil count 0.0 10*3/uL 0.0-0.3 Automated blood basophil count (count/volume) 0.0 10*3/uL 0.0-0.1 Whole blood basic metabolic panel - 01/14/18 04:20 Serum or plasma sodium measurement (moles/volume) 145 mmol/L 135-145 Serum or plasma potassium measurement (moles/volume) 3.5 mmol/L 3.6-5.0 Serum or plasma chloride measurement (moles/volume) 101 mmol/L 98-107 Carbon dioxide 34 mmol/L 21-32 Serum or plasma anion gap determination (moles/volume) 10 mmol/L 5-14 Serum or plasma urea nitrogen measurement (mass/volume) 30 mg/dL 7-18 Serum or plasma creatinine measurement (mass/volume) 0.52 mg/dL 0.60-1.30 Serum or plasma urea nitrogen/creatinine mass ratio 58 NRG Serum or plasma creatinine measurement with calculation of estimated glomerular filtration rate > NRG Serum or plasma glucose measurement (mass/volume) 157 mg/dL 70-105 Serum or plasma calcium measurement (mass/volume) 9.2 mg/dL 8.5-10.1 Encounters ACCT No. Visit Date/Time Discharge Status Pt. Type Provider Facility Loc./Unit Complaint [id number] 01/12/2018 16:00:00 01/15/2018 14:50:00 DIS Inpatient LUIS FERNANDO LEONE, KODAK Campbell [facility] [address] [place] [id number] 02/21/2016 13:08:00 02/21/2016 23:59:59 CLS Preadmit DIAN ESTRADAP [facility] ONC [id number] 02/16/2015 13:12:00 02/16/2015 23:59:59 CLS Outpatient BENEDICT KAN [facility] ONC [id number] 02/19/2014 13:51:00 02/19/2014 23:59:59 CLS Outpatient BENEDICT KAN [facility] ONC [id number] 02/13/2013 09:26:00 02/13/2013 23:59:59 CLS Outpatient BENEDICT KAN [facility] ONC [id number] 08/12/2012 13:09:00 Document Registration
== END 2018-01-20 11:59 | disposition home or self-care (01) ==
LOC: EDUNIT# 08:15 → ER 08:16
DX: J98.4 Other disorders of lung (principal); M41.80 Other forms of scoliosis, site unspecified; R09.02 Hypoxemia; J44.9 Chronic obstructive pulmonary disease, unspecified; Z85.038 Personal history of other malignant neoplasm of large intestine; Z92.21 Personal history of antineoplastic chemotherapy; Z87.442 Personal history of urinary calculi; Z79.51 Long term (current) use of inhaled steroids; Z99.81 Dependence on supplemental oxygen
CPT/HCPCS: 36415; 71045; 80053; 81000; 83605; 85007; 85027; 87040; 87088

== ENCOUNTER 2018-01-29 00:15 | Emergency (ER) | payer MEDICARE, OTHER, MEDICAID ==
[~2018-01-29] VITALS: Ht 152.4 cm; Wt 44.5 kg
[2018-01-29] MEDS ORDERED: LACTATED RINGERS 1,000 ML IV ONE ×2 (00:25→00:31)
[2018-01-29] MEDS ORDERED: ACETAMINOPHEN 650 MG SUPP (TYLENOL) ONE (00:34)
[2018-01-29 00:35] LABS: BASOPHILS % (AUTO) 0 % (0-10); EOSINOPHILS % (AUTO) 0 % (0-10); HEMATOCRIT 42 % (35-52); HEMOGLOBIN 11.6 G/DL (11.5-16.0); LYMPHOCYTES # (AUTO) 0.7 X 10^3 (1.0-4.0); LYMPHOCYTES % (AUTO) 7 % (12-44); MEAN CORPUSCULAR HEMOGLOBIN 33 PG (25-34); MEAN CORPUSCULAR HGB CONC 28 G/DL (32-36); MEAN CORPUSCULAR VOLUME 117 FL (80-99); MEAN PLATELET VOLUME 9.5 FL (7.4-10.4); MONOCYTES % (AUTO) 10 % (0-12); NEUTROPHILS # (AUTO) 8.5 X 10^3 (1.8-7.8); NEUTROPHILS % (AUTO) 84 % (42-75); PLATELET COUNT 204 10^3/uL (130-400); RED BLOOD COUNT 3.54 10^6/uL (4.35-5.85); RED CELL DISTRIBUTION WIDTH 13.4 % (10.0-14.5); WHITE BLOOD COUNT 10.2 10^3/uL (4.3-11.0)
--- NOTE | 2018-01-29 00:35 | ED General ---
General Stated Complaint: FEVER,RESP DISTRESS Source of Information: Care Home Records (ALL PMH IS FROM OLD CHART AND [facility] RECORD), Old Records Exam Limitations: Other (PT NOT TALKING OR FOLLOWING COMMANDS. NEPHEW AND HIS FEMALE S.O. ARRIVE LATER) History of Present Illness Date Seen by Provider: January 29, 2018 Time Seen by Provider: 00:15 Initial Comments PT ARRIVES VIA EMS FROM [facility]IA [facility] FOR FEVER OF 102 TONIGHT PT WAS GIVEN UNKNOWN DOSE OF TYLENOL SUPPOSITORY AROUND 2200 TONIGHT PT HAS BEEN RECENTLY DIAGNOSED WITH UTI AND HAS BEEN PRESCRIBED KEFLEX 500 MG BID SINCE 01/15/18. PT HAS ALSO BEEN PRESCRIBED ZITHROMAX FOR POSSIBLE RESPIRATORY INFECTION PT ADMITTED HERE 01/12-01/15/18 FOR HYPOXIA, UTI WITH SEPSIS, MULTIFACTORIAL FAILURE TO THRIVE, SEVERE SCOLIOSIS AND PLACED IN [facility]. PT WAS BACK TO ER 01/20/18 FOR HYPOXIA AND WAS STARTED ON O2 AND PLACED ON HOSPICE FAMILY REVOKED HOSPICE JUST PRIOR TO ARRIVAL AND DEMANDED THAT PT BE SENT HERE. PT IS DNR. [facility] STATES THAT PT DOES NOT HAVE A DPOA ACCORDING TO THEIR RECORDS FAMILY DOES NOT THINK THAT PT HAS BEEN GETTING HER ANTIBIOTICS IN THE [facility] AND THEY DON'T THINK THAT THEY HAVE BEEN FEEDING OR GIVING HER LIQUIDS "BECAUSE THEY THINK SHE MIGHT ASPIRATE" O2 SAT WAS 83% ON ROOM AIR ON ARRIVAL --SATS UP TO MID 90'S ON O2 AT 4L/MASK PT IS BED-BOUND PCP: DR. ZARATE, AND DR BERNARDO IS HOSPICE HAD BEEN A PT OF DR. QUINTERO'Sebas PRIOR TO THAT. Allergies and Home Medications Allergies Coded Allergies: NKANo Known Allergies (Verified Allergy, Unknown, 01/12/18) Home Medications Albuterol Sulfate 1 Puff Puff, 2 PUFF IN Q4H PRN for SHORTNESS OF BREATH, ( Reported) LAST FILLED 01/25/2017 Aspirin 81 Mg Tablet., 81 MG PO DAILY, (Reported) Calcium Carbonate/Vitamin D3 1 Each Tablet, 1 TAB PO BID, (Reported) Cephalexin 250 Mg Capsule, 500 MG PO BID Prescribed by: ANDREW CHOUDHARY on 01/15/18 0919 Cholecalciferol (Vitamin D3) 5,000 Unit Capsule, 5,000 UNIT PO DAILY, (Reported) Citalopram Hydrobromide 10 Mg Tablet, 10 MG PO DAILY, (Reported) Fluticasone/Salmeterol 1 Each Blst.w.dev, 1 PUFF IH BID, (Reported) LAST FILLED 07/17/2015 Levothyroxine Sodium 88 Mcg Tablet, 88 MCG PO DAILY, (Reported) 0630 DOSE Meloxicam 15 Mg Tablet, 15 MG PO DAILY, (Reported) [place] 3 Polyunsat Fatty Acids 1,000 Mg Cap, 1,000 MG PO TID, (Reported) Pantoprazole Sodium 40 Mg Tablet.dr, 40 MG PO DAILY, (Reported) 0630 DOSE Potassium Chloride 20 Meq Tab.er.prt, 20 MEQ PO BID, (Reported) Pravastatin Sodium 40 Mg Tablet, 40 MG PO HS, (Reported) Tiotropium [place] 1 Inh Aerp, 1 INH IH DAILY, (Reported) LAST FILLED 09/14/2014 Topiramate 25 Mg Tablet, 25 MG PO BID, (Reported) [Rocephin] , 1 GM IV DAILY Prescribed by: ESTELLE MAGALLANES on 01/29/18 0152 Patient Home Medication List Home Medication List Reviewed: Yes Review of Systems Constitutional: see HPI, fever, other (PT UNABLE TO ANSWER QUESTIONS) Past Tzruokf-Weziyh-Ntmnwf Hx Patient Social History 2nd Hand Smoke Exposure: No Recent Foreign Travel: No Contact w/Someone Who Travel: No Recent Hopitalizations: No Immunizations Up To Date Tetanus Booster (TDap): Unknown Date of Pneumonia Vaccine: Jun 03, 2017 Seasonal Allergies Seasonal Allergies: No Past Medical History Surgeries: Yes (COLON RESECTION FOR CANCER; RODS IN BACK/REMOVED; HYST/BSO) Abdominal, Bowel Surgery, Hysterectomy, Oophorectomy, Orthopedic Respiratory: Yes COPD Cardiac: Yes High Cholesterol, Hypertension Neurological: Yes Dementia (???) Reproductive Disorders: No (tumor on ovaries) Female Reproductive Disorders: Denies Sexually Transmitted Disease: No HIV/AIDS: No Genitourinary: Yes (URINARY RETENTION) UTI-Chronic Gastrointestinal: Yes (COLON CANCER) Musculoskeletal: Yes (SEVERE SCOLIOSIS) Back Injury, Scoliosis, Chronic Back Pain, Contracture Endocrine: Yes Hypothyroidsim HEENT: No Cancer: Yes Colon Did You Recieve Any Treatments: Yes What Type of Treatment Did You: Chemotherapy, Surgical Intervention Psychosocial: No Integumentary: No Blood Disorders: No Physical Exam Vital Signs Vital Signs - First Documented 01/29/18 00:15 Temp 102.4 Pulse 103 Resp 18 B/P (MAP) 126/67 (86) Pulse Ox 83 O2 Delivery Room Air O2 Flow Rate 5.00 Capillary Refill : General Appearance: Chronically ill, Thin, Other (PT VERY LETHARGIC, SEMI- OBTUNDED--BARELY OPENS EYES AND MOANS, BUT DOES NOT TALK OR FOLLOW COMMANDS. PT WITH SEVERE SCOLIOSIS AND HEAD IS COMPLETLY BENT TO THE LEFT AND IS RESTING ON LEFT SHOULDER. ) HEENT: Other (ORAL MUCOSA DRY BUT IS MOUTH-BREATHER) Respiratory: No Accessory Muscle Use, No Respiratory Distress, Decreased Breath Sounds (IN BASES) Cardiovascular: No Murmur Gastrointestinal: Soft Back: Other (SEVERE SCOLIOSIS) Extremity: No Pedal Edema, Other (HEEL PROTECTORS IN PLACE AND PILLOWS UNDER KNEES) Neurologic/Psychiatric: Other (VERY LETHARGIC AND SEMI-OBTUNDED. NOT TALKING OR FOLLOWING COMMANDS, NO VOLUNTARY MOVEMENTS) Focused Exam Lactate Level 01/29/18 00:22: Lactic Acid Level 0.57 Lactic Acid Level Progress/Results/Core Measures Suspected Sepsis SIRS Temperature: Pulse: Respiratory Rate: Laboratory Tests 01/29/18 00:22: White Blood Count 10.2 Blood Pressure / Mean: 01/29/18 00:22: Lactic Acid Level 0.57 Laboratory Tests 01/29/18 00:22: Creatinine 0.60, Platelet Count 204, Total Bilirubin 0.5 Results/Orders Lab Results Laboratory Tests Test 01/29/18 00:22 01/29/18 00:30 Range/Units White Blood Count 10.2 4.3-11.0 10^3/uL Red Blood Count 3.54 L 4.35-5.85 10^6/uL Hemoglobin 11.6 11.5-16.0 G/DL Hematocrit 42 35-52 % Mean Corpuscular Volume 117 H 80-99 FL Mean Corpuscular Hemoglobin 33 25-34 PG Mean Corpuscular Hemoglobin Concent 28 L 32-36 G/DL Red Cell Distribution Width 13.4 10.0-14.5 % Platelet Count 204 130-400 10^3/uL Mean Platelet Volume 9.5 7.4-10.4 FL Neutrophils (%) (Auto) 84 H 42-75 % Lymphocytes (%) (Auto) 7 L 12-44 % Monocytes (%) (Auto) 10 0-12 % Eosinophils (%) (Auto) 0 0-10 % Basophils (%) (Auto) 0 0-10 % Neutrophils # (Auto) 8.5 H 1.8-7.8 X 10^3 Lymphocytes # (Auto) 0.7 L 1.0-4.0 X 10^3 Monocytes # (Auto) 1.0 0.0-1.0 X 10^3 Eosinophils # (Auto) 0.0 0.0-0.3 10^3/uL Basophils # (Auto) 0.0 0.0-0.1 10^3/uL Neutrophils % (Manual) 90 % Lymphocytes % (Manual) 4 % Monocytes % (Manual) 5 % Eosinophils % (Manual) 0 % Basophils % (Manual) 0 % Band Neutrophils 1 % Blood Morphology Comment NORMAL Sodium Level 156 H 135-145 MMOL/L Potassium Level 4.4 3.6-5.0 MMOL/L Chloride Level 100 98-107 MMOL/L Carbon Dioxide Level 45 H 21-32 MMOL/L Anion Gap 11 5-14 MMOL/L Blood Urea Nitrogen 44 H 7-18 MG/DL Creatinine 0.60 0.60-1.30 MG/DL Estimat Glomerular Filtration Rate > 60 BUN/Creatinine Ratio 73 Glucose Level 102 70-105 MG/DL Lactic Acid Level 0.57 0.50-2.00 MMOL/L Calcium Level 10.0 8.5-10.1 MG/DL Magnesium Level 2.2 1.8-2.4 MG/DL Total Bilirubin 0.5 0.1-1.0 MG/DL Aspartate Amino Transf (AST/SGOT) 12 5-34 U/L Alanine Aminotransferase (ALT/SGPT) 11 0-55 U/L Alkaline Phosphatase 56 40-136 U/L Total Protein 6.5 6.4-8.2 GM/DL Albumin 3.6 3.2-4.5 GM/DL Urine Color YELLOW Urine Clarity VERY CLOUDY H Urine pH 8 5-9 Urine Specific [place] 1.010 L 1.016-1.022 Urine Protein 3+ H NEGATIVE Urine Glucose (UA) NEGATIVE NEGATIVE Urine Ketones 2+ H NEGATIVE Urine Nitrite NEGATIVE NEGATIVE Urine Bilirubin NEGATIVE NEGATIVE Urine Urobilinogen NORMAL NORMAL MG/DL Urine Leukocyte Esterase 3+ H NEGATIVE Urine RBC (Auto) 5+ H NEGATIVE Urine RBC 10-25 H /HPF Urine WBC 2-5 /HPF Urine Squamous Epithelial Cells 0-2 /HPF Urine Crystals PRESENT H /LPF Urine Amorphous Sediment MOD [place]TON URATES H /LPF Urine Bacteria MODERATE H /HPF Urine Casts NONE /LPF Urine Mucus SMALL H /LPF Urine Culture Indicated YES My Orders Orders - ESTELLE MAGALLANES DO Saline Lock/Iv-Start (01/29/18 00:25) Ekg Tracing (01/29/18:25) Catheter(Urinary) Insert & Ass 03,15 (01/29/18 00:25) O2 (01/29/18 00:25) Monitor-Rhythm Ecg Trace Only (01/29/18:) Cbc With Automated Diff (01/29/18:) Comprehensive Metabolic Panel (01/29/18:) Lactic Acid Analyzer (01/29/18:) Magnesium (01/29/18:) Ua Culture If Indicated (01/29/18:) Blood Culture (01/29/18:) Chest 1 View, Ap/Pa Only (01/29/18:25) Saline Lock/Iv-Start (01/29/18 00:25) Lactated Ringers (Lr 1000 Ml Iv Solution (01/29/18 00:25) Acetaminophen Suppository (Tylenol Suppo (01/29/18 00:45) Manual Differential (01/29/18 00:22) Urine Culture (01/29/18 00:30) Ceftriaxone Injection (Rocephin Injectio (01/29/18 01:30) 1/2 Ns Iv Solution (0.45% Sodium Chlorid (01/29/18 02:00) Lactated Ringers (Lr 1000 Ml Iv Solution (01/29/18 00:31) Acetaminophen Suppository (Tylenol Suppo (01/29/18 00:34) 1/2 Ns Iv Solution (0.45% Sodium Chlorid (01/29/18 01:49) Medications Given in ED Current Medications Medications Dose Ordered Sig/Christopher Route Start Time Stop Time Status Last Admin Dose Admin Acetaminophen 1,300 mg ONCE ONCE MN 01/29/18 00:45 01/29/18 03:04 DC 01/29/18 00:41 1,300 MG Ceftriaxone Sodium 1000 mg/ Sodium Chloride 50 ml @ 200 mls/hr ONCE ONCE IV 01/29/18 01:30 01/29/18 01:44 DC 01/29/18 01:36 200 MLS/HR Lactated Ringer's 1,000 ml @ 0 mls/hr Q0M ONCE IV 01/29/18 00:25 01/29/18 03:04 DC 01/29/18 00:41 1,000 MLS/HR Vital Signs/I&O 01/29/18 01/29/18 01/29/18 00:15 00:17 02:30 Temp 102.4 99.2 Pulse 103 93 Resp 18 20 B/P (MAP) 126/67 (86) 113/58 Pulse Ox 83 83 99 O2 Delivery Room Air OxyMask OxyMask O2 Flow Rate 5.00 5.00 5.00 Capillary Refill : Progress Note : Progress Note TEMP 102. 4 ON ARRIVAL. GIVEN TYLENOL SUPPOSITORIES TEMP DOWN TO 99.2 AT DISMISSAL NO DETERIORATION IN PT'S CONDITION DURING ER STAY O2 SATS REMAINED IN 90'S ON O2 PT HAD > 250 ML URINE ON ROSAS PLACEMENT Diagnostic Imaging Comments CXR--VERY LIMITED EXAM DUE TO SEVERE SCOLIOSIS--ATELECTASIS/INFILTRATE IN LEFT BASE, CARDIOMEGALY--NO SIGNIFICANT CHANGE FROM PREVIOUS, PENDING RADIOLOGIST REVIEW Reviewed: Reviewed by Me Departure Communication (Admissions) Family Conversation LENGTHY DISCUSSION WITH NEPHEW, HIS FEMALE S.O. ABOUT TEST RESULTS, AND HAVE DISCUSSED WITH [facility] STAFF--THEY CAN GIVE IV ANTIBIOTICS ( AND IV FLUIDS , IF NECESSARY ) --ALL ARE COMFORTABLE WITH SENDING PT BACK TO [facility]. ADVISED FAMILY THAT THEY NEED TO DISCUSS PLACING PT BACK ON HOSPICE AND CAN DISCUSS THIS WITH [facility] STAFF, HOSPICE STAFF AND PHYSICIAN LATER TODAY, HER CONDITION AND PROGNOSIS IS VERY POOR. Impression Primary Impression: Urinary tract infection Additional Impressions: HYPOXIA--SUSPECT MULTIFACTORIAL Severe scoliosis SUSPECTED HYPOVENTILATION DUE TO SCOLIOSIS Mild dehydration NON-AMBULATORY MULTIFACTORIAL FAILURE TO THRIVE Disposition: SNF Condition: Stable Departure-Patient Inst. Referrals: SUSAN ZARATE MD,MARIO KEVIN MD, DO (PCP) Primary Care Physician Patient Instructions: Urinary Tract Infection, Adult (DC) Add. Discharge Instructions: CONTINUE YOUR REGULAR MEDICATIONS PRESCRIBED TYLENOL 1 GRAM AND MOTRIN 600 MG NEEDED FOR PAIN OR FEVER MAINTAIN SALINE LOCK ROCEPHIN 1 GRAM IV DAILY FOR 7 DAYS REPEAT URINALYSIS IN 7 DAYS FURTHER ORDERS BY DR. BERNARDO, DR. ZARATE Scripts [Rocephin] No Conflict Check 1 GM IV DAILY for 7 Days Prov: ESTELLE MAGALLANES DO 01/29/18 ESTELLE MAGALLANES DO January 29, 2018 00:35
[2018-01-29 00:45] LABS: BILIRUBIN,URINE NEGATIVE (NEGATIVE); CLARITY,URINE VERY CLOUDY; COLOR,URINE YELLOW; GLUCOSE, URINE (UA) NEGATIVE (NEGATIVE); KETONES,URINE 2+ (NEGATIVE); LEUKOCYTE ESTERASE ,URINE 3+ (NEGATIVE); NITRITE,URINE NEGATIVE (NEGATIVE); PH,URINE 8 (5-9); PROTEIN,URINE 3+ (NEGATIVE); UROBILINOGEN,URINE NORMAL (NORMAL)
[2018-01-29] MEDS ORDERED: ACETAMINOPHEN 650 MG SUPP (TYLENOL) PR ONE (00:45)
[2018-01-29 00:52] LABS: AMORPHOUS SEDIMENT,UR MOD AMOR URATES /LPF; BACTERIA,URINE MODERATE /HPF; SQUAMOUS EPITHELIAL CELL,UR 0-2 /HPF
[2018-01-29 00:55] LABS: BAND NEUTROPHILS 1 %; BASOPHILS % (MANUAL) 0 %; EOSINOPHILS % (MANUAL) 0 %; LYMPHOCYTES % (MANUAL) 4 %; MONOCYTES % (MANUAL) 5 %; NEUTROPHILS % (MANUAL) 90 %; RBC MORPH NORMAL
[2018-01-29 01:01] LABS: ALANINE AMINOTRANSFERASE 11 U/L (0-55); ALBUMIN 3.6 GM/DL (3.2-4.5); ALKALINE PHOSPHATASE 56 U/L (40-136); BILIRUBIN,TOTAL 0.5 MG/DL (0.1-1.0); BUN/CREATININE RATIO 73; CHLORIDE 100 MMOL/L (98-107); GFR ESTIMATED > 60; GLUCOSE 102 MG/DL (70-105); MAGNESIUM 2.2 MG/DL (1.8-2.4); POTASSIUM 4.4 MMOL/L (3.6-5.0); TOTAL PROTEIN 6.5 GM/DL (6.4-8.2)
[2018-01-29 01:14] LABS: SODIUM 156 MMOL/L (135-145)
[2018-01-29 01:16] LABS: CARBON DIOXIDE 45 MMOL/L (21-32)
[2018-01-29] MEDS ORDERED: cefTRIAXone INJECTION 1,000 MG in NS (IVPB) 50 ML IV ONE (01:30)
[2018-01-29] MEDS ORDERED: 1/2 NS IV SOLUTION 1,000 ML IV ONE (01:49)
[2018-01-29] MEDS ORDERED: ROCEPHIN IV (01:52)
[2018-01-29] MEDS ORDERED: 1/2 NS IV SOLUTION 1,000 ML IV SCH (02:00)
[2018-01-29 02:30] VITALS: BP 113/58
--- NOTE | 2018-01-29 08:04 | Diagnostic Imaging Report ---
INDICATION: Fever. COMPARISON: 01/20/2018. FINDINGS: Portable supine view of the chest is obtained. Heart size is enlarged but unchanged. There is no central venous congestion. No pneumothorax demonstrated. The right lung now appears fairly clear. On the left, there appears to be some atelectasis or infiltrate at the lung base. No significant pleural fluid is suspected. IMPRESSION: Suspect left base atelectasis or infiltrate. Stable cardiomegaly. Dictated by: Dictated on workstation # [id number]
== END 2018-01-29 02:30 ==
LOC: EDUNIT# 00:15 → ER 00:16
DX: N39.0 Urinary tract infection, site not specified (principal); R09.02 Hypoxemia; E86.0 Dehydration; R62.7 Adult failure to thrive; E78.00 Pure hypercholesterolemia, unspecified; I10 Essential (primary) hypertension; F03.90 Unspecified dementia, unspecified severity, without behavioral disturbance, psychotic disturbance, mood disturbance, and anxiety; E03.9 Hypothyroidism, unspecified; Z87.828 Personal history of other (healed) physical injury and trauma; Z90.49 Acquired absence of other specified parts of digestive tract; Z79.82 Long term (current) use of aspirin; Z66 Do not resuscitate; Z85.038 Personal history of other malignant neoplasm of large intestine; Z92.21 Personal history of antineoplastic chemotherapy; Z92.3 Personal history of irradiation
CPT/HCPCS: 36415; 51702; 71045; 80053; 81000; 83605; 83735; 85007; 85027; 87040; 87088; 93005; 93041; 96361; 96365

== ENCOUNTER 2018-07-26 07:52 | Day surgery (SDC) | payer MEDICARE, OTHER ==
[~2018-07-26] VITALS: Ht 152.4 cm; Wt 43.1 kg
[~2018-07-26 07:52] MED LIST changes: +ACET325T38 PO; +ACET650S15 RC; +CITA20TA12 PO; +HYDR-4227 PO; +IRON150C3 PO; +MAG30ORA2 PO; +MAGN400O7 PO; +PROM25SU43 RC; +ROCEPHIN IV; +SENN1TAB93 PO
--- OUTSIDE RECORDS SUMMARY | 2018-07-26 08:07 | XMS REPORT ---
Author Author LAUREN ALMNEDAREZ [facility] Address [address] [place] [address] Care Team Providers Care Body And Frame Man Name Role Phone LAUREN ALMENDAREZ Unavailable PROBLEMS Type Condition ICD9-CM Code [id number] Code Onset Dates Condition Status SNOMED Code Problem Scoliosis of cervical spine, unspecified scoliosis type M41.9 Active 330620555 Problem Adult failure to thrive R62.7 Active 469134214 Problem 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 Active 427833231 Problem Anemia of chronic disease D63.8 Active 878870200 Problem GERD with esophagitis K21.0 Active 195237169 Problem Intractable chronic post-traumatic headache G44.321 Active 354245644 Problem Slow transit constipation K59.01 Active 47710706 Problem Acquired hypothyroidism E03.9 Active 555294417 Problem 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 Active 03677605 Problem Hypokalemia E87.6 Active 55621220 ALLERGIES No Information ENCOUNTERS Encounter Location Date Diagnosis [place] [id number] [place] [address] Jul, [place] [address] [address] Jul, [facility] [address] [place] [id number] Jul, Cellulitis of buttock L03.317 and Cutaneous abscess of buttock L02.31 [place] [address] [address] Jul, [place] [id number] [place] [address] Jul, 2018 [place] [address] [address] Jul, GERD with esophagitis K21.0 [facility] [id number] [address] Jun, [facility] [address] [address] Jun, Dysuria R30.0 [facility] [address] [id number] [id number] Jun, [facility] [address] [place] [address] May, [facility] [address] [place] [address] May, [place] [address] [place] [address] May, [facility] [address] [place] [id number] May, Chronic daily headache R51 [facility] [address] [place] [id number] Apr, Intractable chronic post-traumatic headache G44.321 and Scoliosis of cervical spine, unspecified scoliosis type M41.9 [place] [address] [place] [address] Apr, [place] [address] [address] Mar, Chronic daily headache R51 and Slow transit constipation K59.01 [address] [facility] [address] [place] [id number] Mar, Chronic daily headache R51 and 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 [facility] [address] [place] [address] Mar, Scoliosis of cervical spine, unspecified scoliosis type M41.9 [place] [address] [address] Feb, Scoliosis of cervical spine, unspecified scoliosis type M41.9 [facility] [address] [facility] [id number] [place] [address] Feb, Shortness of breath R06.02 [facility] [address] [place] [id number] January, Encounter for examination for admission to senior care Z02.2 ; Scoliosis of cervical spine, unspecified scoliosis type M41.9 ; 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 ; Adult failure to thrive R62.7 ; Hypokalemia E87.6 ; Acquired hypothyroidism E03.9 and Slow transit constipation K59.01 [facility] [address] [facility] [id number] [place] [id number] January, Adult failure to thrive R62.7 ; Scoliosis of cervical spine , unspecified scoliosis type M41.9 and 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 IMMUNIZATIONS No Known Immunizations SOCIAL HISTORY Never Assessed REASON FOR VISIT Critical Lab PLAN OF CARE VITAL SIGNS MEDICATIONS Unknown Medications RESULTS No Results PROCEDURES No Known procedures INSTRUCTIONS MEDICATIONS ADMINISTERED No Known Medications MEDICAL (GENERAL) HISTORY Type Description Date Surgical History right femur fx 03/2018 Hospitalization History U[facility], scoliosis-[facility] 01/2018 Hospitalization History Right hip surgery-[facility] 04/2018
--- OUTSIDE RECORDS SUMMARY | 2018-07-26 08:08 | XMS REPORT ---
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 Active 21279712 Problem Slow transit constipation K59.01 Active 28161550 Problem Adult failure to thrive R62.7 Active 089032228 Problem Acquired hypothyroidism E03.9 Active 077555043 Problem Hypokalemia E87.6 Active 16027880 ALLERGIES No Information ENCOUNTERS Encounter Location Date Diagnosis [facility] [id number], [place] [address] Jun, [facility] [id number] [address] Jun, Dysuria R30.0 [facility] [address] [id number] [id number] Jun, [facility] [address], [place] [address] May, [facility] [address] [place] [address] May, [facility] [address] [place] [address] May, [facility] [address] [place] [id number] May, Chronic daily headache R51 Via [facility] [address] [place] [id number] Apr, Intractable chronic post-traumatic headache G44.321 and Scoliosis of cervical spine, unspecified scoliosis type M41.9 [place] [address] [place] [address] Apr, [place] [id number] [place] [address] Mar, Chronic daily headache R51 and Slow transit constipation K59.01 [address] [facility] [address] [place] [id number] Mar, Chronic daily headache R51 and 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 [place] [id number] [place] [address] Mar, Scoliosis of cervical spine, unspecified scoliosis type M41.9 [place] [id number] [place] [address] Feb, Scoliosis of cervical spine, unspecified scoliosis type M41.9 [place] [address] [place] [address] Feb, Shortness of breath R06.02 [facility] [address] [place] [id number] January, Encounter for examination for admission to [facility] Z02.2 ; Scoliosis of cervical spine, unspecified scoliosis type M41.9 ; 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 ; Adult failure to thrive R62.7 ; Hypokalemia E87.6 ; Acquired hypothyroidism E03.9 and Slow transit constipation K59.01 [place] [address] [place] [address] January, Adult failure to thrive R62.7 ; Scoliosis of cervical spine , unspecified scoliosis type M41.9 and 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 IMMUNIZATIONS No Known Immunizations SOCIAL HISTORY Never Assessed REASON FOR VISIT Order for UA with C & S if indicated PLAN OF CARE VITAL SIGNS MEDICATIONS Unknown Medications RESULTS No Results PROCEDURES No Known procedures INSTRUCTIONS MEDICATIONS ADMINISTERED No Known Medications MEDICAL (GENERAL) HISTORY Type Description Date Surgical History right femur fx 03/2018 Hospitalization History UTI, scoliosis-[facility] 01/2018 Hospitalization History Right hip surgery-[facility] 04/2018
--- OUTSIDE RECORDS SUMMARY | 2018-07-26 08:08 | XMS REPORT ---
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 Active 039582421 Problem Anemia of chronic disease D63.8 Active 721985177 Problem GERD with esophagitis K21.0 Active 142804001 Problem Intractable chronic post-traumatic headache G44.321 Active 716543918 Problem Slow transit constipation K59.01 Active 20043355 Problem Acquired hypothyroidism E03.9 Active 332028761 Problem 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 Active 93733485 Problem Hypokalemia E87.6 Active 67595792 ALLERGIES No Information ENCOUNTERS Encounter Location Date Diagnosis [facility] [address] [place] [address] Jul, Via [facility] [address] [place] [id number] Jul, Cellulitis of buttock L03.317 and Cutaneous abscess of buttock L02.31 [facility] [id number] [address] Jul, [facility] [id number] [place] [address] 84329- 9557 Jul, [facility] [address] [place] [address] 38581- 3418 Jul, GERD with esophagitis K21.0 [facility] [address] [id number] [address] Jun, [facility] [address] [address] Jun, Dysuria R30.0 [facility] [address] [id number] [id number] Jun, [facility] [address] [address] May, [facility] [address] [address] May, [place] [address] [place] [address]63[address] 8625 May, Via [facility] [address] [place] [id number] May, Chronic daily headache R51 Via [employer] [address] [place] [address] Apr, Intractable chronic post-traumatic headache G44.321 and Scoliosis of cervical spine, unspecified scoliosis type M41.9 [place] [address] [address] Apr, [place] [address] [place] [address] 00496[address] 6577 Mar, Chronic daily headache R51 and Slow transit constipation K59.01 Via [employer] [address] [place] [id number] Mar, Chronic daily headache R51 and 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 [place] [id number] [address] Mar, Scoliosis of cervical spine, unspecified scoliosis type M41.9 [place] [address] [place] [address]019[address] 5723 Feb, Scoliosis of cervical spine, unspecified scoliosis type M41.9 [place] [id number] [address] Feb, Shortness of breath R06.02 Via [facility] [address] [place] [id number] January, Encounter for examination for admission to [facility] Z02.2 ; Scoliosis of cervical spine, unspecified scoliosis type M41.9 ; 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 ; Adult failure to thrive R62.7 ; Hypokalemia E87.6 ; Acquired hypothyroidism E03.9 and Slow transit constipation K59.01 [facility] [address] [facility] [id number] [place] [address] January, Adult failure to thrive R62.7 ; Scoliosis of cervical spine , unspecified scoliosis type M41.9 and 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 IMMUNIZATIONS No Known Immunizations SOCIAL HISTORY Never Assessed REASON FOR VISIT Controlled Med Refill 07/24 PLAN OF CARE VITAL SIGNS MEDICATIONS Medication Instructions Dosage Frequency Start Date End Date Duration Status Hydrocodone-Acetaminophen 7.5-325 MG Orally 3 times a day 1 tablet 8h Jul, 28 days Active RESULTS No Results PROCEDURES No Known procedures INSTRUCTIONS MEDICATIONS ADMINISTERED No Known Medications MEDICAL (GENERAL) HISTORY Type Description Date Surgical History right femur fx 03/2018 Hospitalization History UTI, scoliosis-[facility] 01/2018 Hospitalization History Right hip surgery-[facility] 04/2018
--- OUTSIDE RECORDS SUMMARY | 2018-07-26 08:08 | XMS REPORT ---
Author Author LAUREN ALMENDAREZ Organization 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 Active 92249838 Problem Slow transit constipation K59.01 Active 44767724 Problem Adult failure to thrive R62.7 Active 021327888 Problem Acquired hypothyroidism E03.9 Active 731920467 Problem Hypokalemia E87.6 Active 98472065 ALLERGIES No Information ENCOUNTERS Encounter Location Date Diagnosis [facility] [address] [facility] [id number] [id number] Jun, [place] [id number] [address] May, [place] [address] [place] [address] 798298- 5[address] May, [place] [address] [facility] [id number] [place] [address] 95171- 9155 May, Via [facility] [facility] [address] [place] [id number] May, Chronic daily headache R51 Via [facility] [address] [id number] Apr, Intractable chronic post-traumatic headache G44.321 and Scoliosis of cervical spine, unspecified scoliosis type M41.9 [facility] [address], [place] [address] Apr, [place] [id number] [place] [address]49[address] 7933 Mar, Chronic daily headache R51 and Slow transit constipation K59.01 Via [facility] [address] [place] [id number] Mar, Chronic daily headache R51 and 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 [place] [id number] [place] [address]85- 5289 Mar, Scoliosis of cervical spine, unspecified scoliosis type M41.9 [place] [id number] [place] [address] 76383- 0549 Feb, Scoliosis of cervical spine, unspecified scoliosis type M41.9 [address] [id number] [place] [address] 02600- 4852 Feb, Shortness of breath R06.02 [facility] [address] [place] [id number] January, Encounter for examination for admission to [facility] Z02.2 ; Scoliosis of cervical spine, unspecified scoliosis type M41.9 ; 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 ; Adult failure to thrive R62.7 ; Hypokalemia E87.6 ; Acquired hypothyroidism E03.9 and Slow transit constipation K59.[address] [place] [address] 91548- 1582 January, Adult failure to thrive R62.7 ; Scoliosis of cervical spine , unspecified scoliosis type M41.9 and 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 IMMUNIZATIONS No Known Immunizations SOCIAL HISTORY Never Assessed REASON FOR VISIT med list update PLAN OF CARE VITAL SIGNS MEDICATIONS Medication Instructions Dosage Frequency Start Date End Date Duration Status Hydrocodone-Acetaminophen 7.5-325 MG Orally 3 times a day 1 tablet 8h May, 28 days Active Ferrex 150 150 MG Orally Once a day 1 capsule 24h Active Cholecalciferol 16354 UNIT 1 capsule May, 30 day(s) Active Citalopram Hydrobromide 20 MG Orally Once a day 1 tablet 24h Mar, 30 days Active Fish Oil 1000 MG Orally 3 times a day 1 capsule 8h Active Acetaminophen 650 MG Rectal every 4 hrs 1 suppository as needed 4h Active Pravastatin Sodium 40 MG Orally Once a day 1 tablet 24h Active Promethazine HCl 25 MG Rectal every 4 hrs 1 suppository as needed 4h Active Klor-Con M20 20 meq Orally twice a day 1 tablet with food 12h Active Levothyroxine Sodium 88 MCG Orally Once a day 1 tablet on an empty stomach in the morning 24h Active Mylanta 200-200-20 MG/5ML Orally every 4 hrs 30 ml as needed 4h Active Tylenol 325 MG Orally every 4 hrs 2 tablets as needed 4h Active Topiramate 25 MG Orally Once a day 1 tablet 24h Active Amitriptyline HCl 25 MG Orally twice a day 1 tablet 12h Apr, 30 days Active Milk of Magnesia 400 MG/5ML Orally Four times a day 5 ml as needed 6h May, Active Pantoprazole Sodium 40 MG Orally Once a day 1 tablet 24h Active Culturelle - as directed Active Senna-Docusate Sodium 8.6-50 MG Orally twice a day 1 tablet 12h Active RESULTS No Results PROCEDURES No Known procedures INSTRUCTIONS MEDICATIONS ADMINISTERED No Known Medications MEDICAL (GENERAL) HISTORY Type Description Date Surgical History right femur fx 03/2018 Hospitalization History UTI, scoliosis-[facility] 01/2018 Hospitalization History Right hip surgery-[facility] 04/2018
--- OUTSIDE RECORDS SUMMARY | 2018-07-26 08:08 | XMS REPORT ---
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 Active 549240189 Problem Scoliosis of cervical spine, unspecified scoliosis type M41.9 Active 079947923 Problem Intractable chronic post-traumatic headache G44.321 Active 321569321 Problem 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 Active 31300526 Problem Slow transit constipation K59.01 Active 23649387 Problem Adult failure to thrive R62.7 Active 502400693 Problem Acquired hypothyroidism E03.9 Active 676066166 Problem Hypokalemia E87.6 Active 78751222 ALLERGIES No Information ENCOUNTERS Encounter Location Date Diagnosis [facility] [id number], [place] [address] Jun, [facility] [id number], [place] [address] Jun, Dysuria R30.0 [facility] [address] [id number] [id number] Jun, [facility] [address], [place] [address] May, [facility] [address] [place] [address] 66478- 2254 May, [facility] [address] [place] [address] 05533- 2989 May, Via [facility] [address] [place] [id number] May, Chronic daily headache R51 Via [facility] [address] [place] [id number] Apr, Intractable chronic post-traumatic headache G44.321 and Scoliosis of cervical spine, unspecified scoliosis type M41.9 [place] [address], [place] [address] Apr, [place] [id number] [place] [address] 74632- 8916 Mar, Chronic daily headache R51 and Slow transit constipation K59.01 Via [employer] [address] [place] [id number] Mar, Chronic daily headache R51 and 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 [place] [id number] [place] [address] 50801- 4266 Mar, Scoliosis of cervical spine, unspecified scoliosis type M41.9 [place] [id number] [place] [address] 93204- 9513 Feb, Scoliosis of cervical spine, unspecified scoliosis type M41.9 [place] [address] [place] [address] 96508- 2079 Feb, Shortness of breath R06.02 Via [employer] [address] [place] [id number] January, Encounter for examination for admission to senior living Z02.2 ; Scoliosis of cervical spine, unspecified scoliosis type M41.9 ; 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 ; Adult failure to thrive R62.7 ; Hypokalemia E87.6 ; Acquired hypothyroidism E03.9 and Slow transit constipation K59.01 [place] [address] [place] [address] 25242- 6337 January, Adult failure to thrive R62.7 ; Scoliosis of cervical spine , unspecified scoliosis type M41.9 and 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 IMMUNIZATIONS No Known Immunizations SOCIAL HISTORY Never Assessed REASON FOR VISIT Controlled Med Refill PLAN OF CARE VITAL SIGNS MEDICATIONS Medication Instructions Dosage Frequency Start Date End Date Duration Status Hydrocodone-Acetaminophen 7.5-325 MG Orally 3 times a day 1 tablet 8h Jun, 28 days Active RESULTS No Results PROCEDURES No Known procedures INSTRUCTIONS MEDICATIONS ADMINISTERED No Known Medications MEDICAL (GENERAL) HISTORY Type Description Date Surgical History right femur fx 03/2018 Hospitalization History UTI, scoliosis-[facility] 01/2018 Hospitalization History Right hip surgery-[facility] 04/2018
--- OUTSIDE RECORDS SUMMARY | 2018-07-26 08:08 | XMS REPORT ---
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 Active 312904355 Problem Anemia of chronic disease D63.8 Active 627026781 Problem GERD with esophagitis K21.0 Active 459021759 Problem Intractable chronic post-traumatic headache G44.321 Active 753107060 Problem Slow transit constipation K59.01 Active 73805048 Problem Acquired hypothyroidism E03.9 Active 384303824 Problem 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 Active 54179669 Problem Hypokalemia E87.6 Active 20025416 ALLERGIES No Information ENCOUNTERS Encounter Location Date Diagnosis [place] [id number] [id number], [place] [address] Jul, GERD with esophagitis K21.0 [facility] [address] [place] [address] 27220- 1483 Jun, [facility] [id number] [place] [address] 74703- 3474 Jun, Dysuria R30.0 [facility] [id number] [place] [id number] Jun, [facility] [address] [place] [address] 63422- 2073 May, [facility] [address] [place] [address] 97396- 6207 May, [place] [address], [place] [address]- 9437 May, Via [employer] [address] [place] [id number] May, Chronic daily headache R51 Via [facility] [address] [place] [id number] Apr, Intractable chronic post-traumatic headache G44.321 and Scoliosis of cervical spine, unspecified scoliosis type M41.9 [place] [address] [place] [address] 87524- 8773 Apr, [place] [id number] [place] [address] 31163- 2953 Mar, Chronic daily headache R51 and Slow transit constipation K59.01 Via [facility] [address] [place] [id number] Mar, Chronic daily headache R51 and 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 [place] [id number] [place] [address] 20094- 6142 Mar, Scoliosis of cervical spine, unspecified scoliosis type M41.9 [place] [address] [place] [address] 42752- 1118 Feb, Scoliosis of cervical spine, unspecified scoliosis type M41.9 [place] [id number] [place] [address] 52192- 0320 Feb, Shortness of breath R06.02 Via [facility] [address] [place] [id number] January, Encounter for examination for admission to [facility] Z02.2 ; Scoliosis of cervical spine, unspecified scoliosis type M41.9 ; 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 ; Adult failure to thrive R62.7 ; Hypokalemia E87.6 ; Acquired hypothyroidism E03.9 and Slow transit constipation K59.01 [place] [address] [place] [address] 42716- 1517 January, Adult failure to thrive R62.7 ; Scoliosis of cervical spine , unspecified scoliosis type M41.9 and 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 IMMUNIZATIONS No Known Immunizations SOCIAL HISTORY Never Assessed REASON FOR VISIT medication change, pharmacy recommendation [facility] patient PLAN OF CARE VITAL SIGNS MEDICATIONS Unknown Medications RESULTS No Results PROCEDURES No Known procedures INSTRUCTIONS MEDICATIONS ADMINISTERED No Known Medications MEDICAL (GENERAL) HISTORY Type Description Date Surgical History right femur fx 03/2018 Hospitalization History UTI, scoliosis-[facility] 01/2018 Hospitalization History Right hip surgery-[facility] 04/2018
--- OUTSIDE RECORDS SUMMARY | 2018-07-26 08:08 | XMS REPORT ---
Author Author LAUREN ALMENDAREZ [facility] Address [address] [place] [address] Care Team Providers Care Store Mgr Name Role Phone LAUREN ALMENDAREZ Unavailable PROBLEMS Type Condition ICD9-CM Code STB27-XS Code Onset Dates Condition Status SNOMED Code Problem Scoliosis of cervical spine, unspecified scoliosis type M41.9 Active 252035878 Problem Adult failure to thrive R62.7 Active 892888836 Problem 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 Active 805538690 Problem Anemia of chronic disease D63.8 Active 878233848 Problem GERD with esophagitis K21.0 Active 905944596 Problem Intractable chronic post-traumatic headache G44.321 Active 274534999 Problem Slow transit constipation K59.01 Active 40409591 Problem Acquired hypothyroidism E03.9 Active 764513776 Problem 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 Active 38483962 Problem Hypokalemia E87.6 Active 52362100 ALLERGIES No Information ENCOUNTERS Encounter Location Date Diagnosis [facility] [address] [place] [address] 07823- [address]643 Jul, Via [facility] [address] [place] [address] Jul, Cellulitis of buttock L03.317 and Cutaneous abscess of buttock L02.31 [facility] [address] [id number], [place] [address] 6[address] Jul, [facility] [id number] [place] [address] 29327- 0945 Jul, [facility] [address] [place] [address] 52089- 3071 Jul, GERD with esophagitis K21.0 [facility] [address] [id number], [place] [address]- 1798 Jun, [facility] [address], [place] [address]- 9679 Jun, Dysuria R30.0 [facility] [address] [id number] [id number] Jun, [facility] [address], [place] [address] 9[address] May, [facility] [address], [place] [address]- 9232 May, [place] [address] [place] [address] 49763- 3258 May, Via [employer] [address] [place] [id number] May, Chronic daily headache R51 Via [employer] [address] [place] [id number] Apr, Intractable chronic post-traumatic headache G44.321 and Scoliosis of cervical spine, unspecified scoliosis type M41.9 [place] [address], [place] [address]- 6691 Apr, [place] [address] [place] [address] 12499- 6974 Mar, Chronic daily headache R51 and Slow transit constipation K59.01 Via [employer] [address] [place] [address] Mar, Chronic daily headache R51 and 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 [place] [id number], [place] [address]- 1298 Mar, Scoliosis of cervical spine, unspecified scoliosis type M41.9 [place] [address] [place] [address] 28115- 6583 Feb, Scoliosis of cervical spine, unspecified scoliosis type M41.9 [place] [id number], [place] [address]- 2514 Feb, Shortness of breath R06.02 Via [facility] [address] [place] [id number] January, Encounter for examination for admission to long term Z02.2 ; Scoliosis of cervical spine, unspecified scoliosis type M41.9 ; 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 ; Adult failure to thrive R62.7 ; Hypokalemia E87.6 ; Acquired hypothyroidism E03.9 and Slow transit constipation K59.01 [facility] [address] [facility] [id number] [address] January, Adult failure to thrive R62.7 ; Scoliosis of cervical spine , unspecified scoliosis type M41.9 and 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 IMMUNIZATIONS No Known Immunizations SOCIAL HISTORY Never Assessed REASON FOR VISIT PLAN OF CARE Activity Details Follow Up prn Reason: VITAL SIGNS MEDICATIONS Medication Instructions Dosage Frequency Start Date End Date Duration Status Klor-Con M20 20 meq Orally twice a day 1 tablet with food 12h Active Senna-Docusate Sodium 8.6-50 MG Orally twice a day 1 tablet 12h Active Pravastatin Sodium 40 MG Orally Once a day 1 tablet 24h Active Fish Oil 1000 MG Orally 3 times a day 1 capsule 8h Active Topiramate 25 MG Orally Once a day 1 tablet 24h Active Cholecalciferol 84231 UNIT 1 capsule May, 30 day(s) Active Tylenol 325 MG Orally every 4 hrs 2 tablets as needed 4h Active Hydrocodone-Acetaminophen 7.5-325 MG Orally 3 times a day 1 tablet 8h Jun, 28 days Active Promethazine HCl 25 MG Rectal every 4 hrs 1 suppository as needed 4h Active Culturelle - as directed Active Milk of Magnesia 400 MG/5ML Orally Four times a day 5 ml as needed 6h May, Active Acetaminophen 650 MG Rectal every 4 hrs 1 suppository as needed 4h Active Mylanta 200-200-20 MG/5ML Orally every 4 hrs 30 ml as needed 4h Active Levothyroxine Sodium 88 MCG Orally Once a day 1 tablet on an empty stomach in the morning 24h Active Citalopram Hydrobromide 20 MG Orally Once a day 1 tablet 24h Mar, 30 days Active Ferrex 150 150 MG Orally Once a day 1 capsule 24h Active Amitriptyline HCl 25 MG Orally twice a day 1 tablet 12h 28 Apr, 2018 30 days Active RESULTS No Results PROCEDURES Procedure Date Ordered Result Body Site Minor complication (15 mins) Jul 23, 2018 INSTRUCTIONS MEDICATIONS ADMINISTERED No Known Medications MEDICAL (GENERAL) HISTORY Type Description Date Surgical History right femur fx 03/2018 Hospitalization History UTI, scoliosis-[facility] 01/2018 Hospitalization History Right hip surgery-[facility] 04/2018
--- OUTSIDE RECORDS SUMMARY | 2018-07-26 08:08 | XMS REPORT ---
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 Active 787829571 Problem Anemia of chronic disease D63.8 Active 629030937 Problem GERD with esophagitis K21.0 Active 818989095 Problem Intractable chronic post-traumatic headache G44.321 Active 854494066 Problem Slow transit constipation K59.01 Active 05630559 Problem Acquired hypothyroidism E03.9 Active 320896281 Problem 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 Active 86934993 Problem Hypokalemia E87.6 Active 24235983 ALLERGIES No Information ENCOUNTERS Encounter Location Date Diagnosis [facility] [address] [id number] [address] Jul, [facility] [address] [place] [address] Jul, GERD with esophagitis K21.0 [facility] [id number] [place] [address] 83373- 5245 Jun, [facility] [address] [place] [address]1272- 0217 Jun, Dysuria R30.0 [facility] [address] [id number] [id number] Jun, [facility] [address] [place] [address] 9[address]71- 9524 May, [place] [address] [address] May, [place] [address] [place] [address]0548- 7633 May, [facility] [address] [place] [id number] May, Chronic daily headache R51 [facility] [address] [place] [id number] Apr, Intractable chronic post-traumatic headache G44.321 and Scoliosis of cervical spine, unspecified scoliosis type M41.9 [place] [id number] [place] [address] 09291- 0172 Apr, [place] [id number] [place] [address] 46456- 9982 Mar, Chronic daily headache R51 and Slow transit constipation K59.01 [facility] [address] [place] [id number] Mar, Chronic daily headache R51 and 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 [place] [id number] [place] [address] 45610- 1731 Mar, Scoliosis of cervical spine, unspecified scoliosis type M41.9 [place] [address] [place] [address]- 0230 Feb, Scoliosis of cervical spine, unspecified scoliosis type M41.9 [place] [address] [place] [address] 81804- 5952 07 Feb, 2018 Shortness of breath R06.02 [facility] [address] [place] [id number] January, Encounter for examination for admission to fdc Z02.2 ; Scoliosis of cervical spine, unspecified scoliosis type M41.9 ; 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 [id number] [place] [address] January, Adult failure to thrive R62.7 ; Scoliosis of cervical spine , unspecified scoliosis type M41.9 and 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 IMMUNIZATIONS No Known Immunizations SOCIAL HISTORY Never Assessed REASON FOR VISIT Test results request PLAN OF CARE VITAL SIGNS MEDICATIONS Unknown Medications RESULTS No Results PROCEDURES No Known procedures INSTRUCTIONS MEDICATIONS ADMINISTERED No Known Medications MEDICAL (GENERAL) HISTORY Type Description Date Surgical History right femur fx 03/2018 Hospitalization History UTI, [facility] 01/2018 Hospitalization History Right hip surgery-[facility] 04/2018
--- OUTSIDE RECORDS SUMMARY | 2018-07-26 08:08 | XMS REPORT ---
Author Author PRUDENCIO RENEE [facility] Address [address] [place] [address] Care Team Providers Care Global Process Owner Name Role Phone RENEEPRUDENCIO VITAL Unavailable PROBLEMS Type Condition ICD9-CM Code DXT79-AA Code Onset Dates Condition Status SNOMED Code Problem Anemia of chronic disease D63.8 Active 958520189 Problem 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 Active 695827110 Problem Scoliosis of cervical spine, unspecified scoliosis type M41.9 Active 970948494 Problem Intractable chronic post-traumatic headache G44.321 Active 687445121 Problem 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 Active 27898560 Problem Slow transit constipation K59.01 Active 50152283 Problem Adult failure to thrive R62.7 Active 002516448 Problem Acquired hypothyroidism E03.9 Active 465082755 Problem Hypokalemia E87.6 Active 32781359 ALLERGIES No Information ENCOUNTERS Encounter Location Date Diagnosis [facility] [address] [id number] [id number] Jun, [place] [address] [id number] [address] May, [facility] [address] [address] May, [facility] [address] [id number] [address] May, [facility] [address] [place] [id number] May, Chronic daily headache R51 [facility] [address] [place] [id number] Apr, Intractable chronic post-traumatic headache G44.321 and Scoliosis of cervical spine, unspecified scoliosis type M41.9 [facility] [address] [id number] [address] Apr, [place] [address] [place] [address]128- 5606 Mar, Chronic daily headache R51 and Slow transit constipation K59.01 Via [facility] [address] [place] [id number] Mar, Chronic daily headache R51 and 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 [place] [id number] [place] [address] 2[address]- 8173 Mar, Scoliosis of cervical spine, unspecified scoliosis type M41.9 [place] [id number] [place] [address] 36169- 2156 13 Feb, 2018 Scoliosis of cervical spine, unspecified scoliosis type M41.9 [place] [id number] [place] [address] 63934- 1002 Feb, Shortness of breath R06.02 Via [facility] [address] [place] [id number] January, Encounter for examination for admission to residential Z02.2 ; Scoliosis of cervical spine, unspecified scoliosis type M41.9 ; 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 ; Adult failure to thrive R62.7 ; Hypokalemia E87.6 ; Acquired hypothyroidism E03.9 and Slow transit constipation K59.01 [place] [address] [place] [address] 48153- 4245 January, Adult failure to thrive R62.7 ; Scoliosis of cervical spine , unspecified scoliosis type M41.9 and 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
--- OUTSIDE RECORDS SUMMARY | 2018-07-26 08:08 | XMS REPORT ---
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 Active 103003098 Problem Anemia of chronic disease D63.8 Active 138020663 Problem GERD with esophagitis K21.0 Active 032827943 Problem Intractable chronic post-traumatic headache G44.321 Active 317713900 Problem Slow transit constipation K59.01 Active 29191639 Problem Acquired hypothyroidism E03.9 Active 077576750 Problem 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 Active 56628269 Problem Hypokalemia E87.6 Active 42903749 ALLERGIES No Information ENCOUNTERS Encounter Location Date Diagnosis [place] [id number] [place] [address]- 8030 Jul, [place] [address] [address] Jul, [facility] [address] [place] [id number] Jul, Cellulitis of buttock L03.317 and Cutaneous abscess of buttock L02.31 [place] [address] 6[address]02- 7041 Jul, [place] [id number] [place] [address] 54980- 4976 02 Jul, 2018 [address] [address]- [address]354 Jul, GERD with esophagitis K21.0 [facility] [address] [id number], [place] [address] Jun, [facility] [address], [place] [address] 49[address] Jun, Dysuria R30.0 [facility] [address] [id number] [id number] Jun, [facility] [address] [place] [address] 26567- 0319 May, [facility] [address] [place] [address] 69204- 2377 May, [place] [address] [place] [address] 41627- 8362 May, Via [facility] [address] [place] [id number] May, Chronic daily headache R51 [facility] [address] [place] [id number] Apr, Intractable chronic post-traumatic headache G44.321 and Scoliosis of cervical spine, unspecified scoliosis type M41.9 [place] [address] [place] [address] 34392- 2346 Apr, [place] [address], [place] [address] 6[address] Mar, Chronic daily headache R51 and Slow transit constipation K59.01 [facility] [address] [place] [id number] Mar, Chronic daily headache R51 and 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 [facility] [address] [place] [address] 06697- 4645 Mar, Scoliosis of cervical spine, unspecified scoliosis type M41.9 [place] [address] [address] Feb, Scoliosis of cervical spine, unspecified scoliosis type M41.9 [facility] [address] [facility] [id number] [place] [address] Feb, Shortness of breath R06.02 Via [facility] [address] [place] [id number] January, Encounter for examination for admission to intermediate Z02.2 ; Scoliosis of cervical spine, unspecified scoliosis type M41.9 ; 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 ; Adult failure to thrive R62.7 ; Hypokalemia E87.6 ; Acquired hypothyroidism E03.9 and Slow transit constipation K59.01 [facility] [address] [facility] [id number] [place] [address] January, Adult failure to thrive R62.7 ; Scoliosis of cervical spine , unspecified scoliosis type M41.9 and 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 IMMUNIZATIONS No Known Immunizations SOCIAL HISTORY Never Assessed REASON FOR VISIT Critical Labs PLAN OF CARE VITAL SIGNS MEDICATIONS Unknown Medications RESULTS No Results PROCEDURES No Known procedures INSTRUCTIONS MEDICATIONS ADMINISTERED No Known Medications MEDICAL (GENERAL) HISTORY Type Description Date Surgical History right femur fx 03/2018 Hospitalization History [facility], [facility] 01/2018 Hospitalization History Right hip surgery-[facility] 04/2018
--- OUTSIDE RECORDS SUMMARY | 2018-07-26 08:09 | XMS REPORT ---
Author Author LAUREN ALMENDAREZ [facility] Address [address] [place] [address] Care Team Providers Care Dragsaw Operator Name Role Phone LAUREN ALMENDAREZ Unavailable PROBLEMS ALLERGIES No Information ENCOUNTERS IMMUNIZATIONS No Known Immunizations SOCIAL HISTORY No smoking Hx information available REASON FOR VISIT PLAN OF CARE VITAL SIGNS MEDICATIONS RESULTS No Results PROCEDURES No Known procedures INSTRUCTIONS MEDICATIONS ADMINISTERED No Known Medications MEDICAL (GENERAL) HISTORY
--- OUTSIDE RECORDS SUMMARY | 2018-07-26 08:09 | XMS REPORT ---
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 Active 269963476 Problem Scoliosis of cervical spine, unspecified scoliosis type M41.9 Active 544703159 Problem Intractable chronic post-traumatic headache G44.321 Active 010410602 Problem 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 Active 59723225 Problem Slow transit constipation K59.01 Active 16292344 Problem Adult failure to thrive R62.7 Active 351863943 Problem Acquired hypothyroidism E03.9 Active 706571252 Problem Hypokalemia E87.6 Active 95860493 ALLERGIES No Information ENCOUNTERS Encounter Location Date Diagnosis [facility] [address] [id number] Apr, Intractable chronic post-traumatic headache G44.321 and Scoliosis of cervical spine, unspecified scoliosis type M41.9 [place] [address] [id number], [place] [address] Apr, [place] [address] [facility] [id number] [address]698 Mar, Chronic daily headache R51 and Slow transit constipation K59.01 [facility] [address] [id number] Mar, Chronic daily headache R51 and 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 [facility] [address] [facility] [id number], [place] [address] Mar, Scoliosis of cervical spine, unspecified scoliosis type M41.9 [facility] [address] [facility] [id number] [place] [address] 13 Feb, 2018 Scoliosis of cervical spine, unspecified scoliosis type M41.9 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 IMMUNIZATIONS No Known Immunizations SOCIAL HISTORY Never Assessed REASON FOR VISIT increased pain PLAN OF CARE VITAL SIGNS MEDICATIONS Medication Instructions Dosage Frequency Start Date End Date Duration Status Tylenol 325 MG Orally 3 times a day 1 tablet with Tramadol 8h Mar, Active Tramadol HCl 50 mg Orally 3 times a day 1 tablet 8h January, Apr, 28 days Active RESULTS No Results PROCEDURES No Known procedures INSTRUCTIONS MEDICATIONS ADMINISTERED No Known Medications MEDICAL (GENERAL) HISTORY Type Description Date Surgical History right femur fx 03/2018 Hospitalization History UTI, sc[facility]osis-[facility] 01/2018 Hospitalization History Right hip surgery-[facility] 04/2018
--- OUTSIDE RECORDS SUMMARY | 2018-07-26 08:09 | XMS REPORT ---
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 Active 509704578 Problem Scoliosis of cervical spine, unspecified scoliosis type M41.9 Active 783374908 Problem Intractable chronic post-traumatic headache G44.321 Active 661565261 Problem 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 Active 38594880 Problem Slow transit constipation K59.01 Active 41223326 Problem Adult failure to thrive R62.7 Active 028534523 Problem Acquired hypothyroidism E03.9 Active 845370521 Problem Hypokalemia E87.6 Active 02281199 ALLERGIES No Information ENCOUNTERS Encounter Location Date Diagnosis [place] [address] [place] [address]70- 7840 May, [facility] [address] [address]- 9149 May, [facility] [address] [place] [address] 83046- 9126 May, Via [facility] [address] [place] [id number] May, Chronic daily headache R51 Via [facility] [address] [place] [id number] Apr, Intractable chronic post-traumatic headache G44.321 and Scoliosis of cervical spine, unspecified scoliosis type M41.9 [facility] [address] [address]- 26[address] Apr, [place] [address] [id number] [address] 31 Mar, 2018 Chronic daily headache R51 and Slow transit constipation K59.01 Via [facility] [address] [place] [id number] Mar, Chronic daily headache R51 and 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 [address] [address] 97[address] Mar, Scoliosis of cervical spine, unspecified scoliosis type M41.9 [place] [address], [place] [address]- 08[address] 13 Feb, 2018 Scoliosis of cervical spine, unspecified scoliosis type M41.9 [place] [address], [place] [address] 36[address] Feb, Shortness of breath R06.02 [facility] [address] [place] [id number] January, Encounter for examination for admission to care home Z02.2 ; Scoliosis of cervical spine, unspecified scoliosis type M41.9 ; 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 ; Adult failure to thrive R62.7 ; Hypokalemia E87.6 ; Acquired hypothyroidism E03.9 and Slow transit constipation K59.01 [place] [address] [id number] [address]- [address] January, Adult failure to thrive R62.7 ; [...] 1 tablet 8h May, 28 days Active RESULTS No Results PROCEDURES No Known procedures INSTRUCTIONS MEDICATIONS ADMINISTERED No Known Medications MEDICAL (GENERAL) HISTORY Type Description Date Surgical History right femur fx 03/2018 Hospitalization History UTI, scoliosis-[facility] 01/2018 Hospitalization History Right hip surgery-[facility] 04/2018
--- OUTSIDE RECORDS SUMMARY | 2018-07-26 08:09 | XMS REPORT ---
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 Active 430261753 Problem Hypokalemia E87.6 Active 17555677 Problem Slow transit constipation K59.01 Active 83478580 ALLERGIES No Information ENCOUNTERS Encounter Location Date Diagnosis [address] [address] [place] [address]8748- 5402 Mar, Chronic daily headache R51 and Slow transit constipation K59.01 Via [employer] [facility] [address] [place] [id number] Mar, Chronic daily headache R51 and 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 [place] [address] [place] [address] 29588- 0323 Mar, Scoliosis of cervical spine, unspecified scoliosis type M41.9 [address] [id number] [place] [address] 03597- 2879 Feb, Scoliosis of cervical spine, unspecified scoliosis type M41.9 [place] [address] [id number], [place] [address]- 86[address] Feb, Shortness of breath R06.02 Via [employer] [address] [place] [id number] January, Encounter for examination for admission to shelter Z02.2 ; Scoliosis of cervical spine, unspecified scoliosis type M41.9 ; 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 ; Adult failure to thrive R62.7 ; Hypokalemia E87.6 ; Acquired hypothyroidism E03.9 and Slow transit constipation K59.01 [facility] [address] [facility] [id number] [place] [address] January, Adult failure to thrive R62.7 ; Scoliosis of cervical spine , unspecified scoliosis type M41.9 and 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
--- OUTSIDE RECORDS SUMMARY | 2018-07-26 08:09 | XMS REPORT ---
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 Active 752610731 Problem Scoliosis of cervical spine, unspecified scoliosis type M41.9 Active 697092198 Problem Intractable chronic post-traumatic headache G44.321 Active 688572301 Problem 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 Active 32087484 Problem Slow transit constipation K59.01 Active 61501969 Problem Adult failure to thrive R62.7 Active 912490352 Problem Acquired hypothyroidism E03.9 Active 290284631 Problem Hypokalemia E87.6 Active [id number] ALLERGIES No Information ENCOUNTERS Encounter Location Date Diagnosis [facility] [employer] [address] [place] [id number] May, Chronic daily headache R51 [facility] [employer] [address] [place] [id number] Apr, Intractable chronic post-traumatic headache G44.321 and Scoliosis of cervical spine, unspecified scoliosis type M41.9 [facility] [address] [id number], [place] [address] Apr, [facility] [address] [id number], [place] [address] Mar, Chronic daily headache R51 and Slow transit constipation K59.01 [facility] [employer] [address] [place] [id number] Mar, Chronic daily headache R51 and 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 [facility] [id number] [address] Mar, Scoliosis of cervical spine, unspecified scoliosis type M41.9 [address] [address] Feb, Scoliosis of cervical spine, unspecified scoliosis type M41.9 [address] [address] Feb, Shortness of breath R06.02 [facility] [employer] [address] [place] [id number] January, Encounter for [facility] for [facility] to prison Z02.2 ; Scoliosis of cervical spine, unspecified scoliosis type M41.9 ; 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 ; Adult failure to thrive R62.7 ; Hypokalemia E87.6 ; Acquired hypothyroidism E03.9 and Slow transit constipation K59.01 [address], [place] [address] January, Adult failure to thrive R62.7 ; Scoliosis of cervical spine , unspecified scoliosis type M41.9 and 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 IMMUNIZATIONS No Known Immunizations SOCIAL HISTORY Never Assessed REASON FOR VISIT routine visit PLAN OF CARE Activity Details Follow Up prn Reason: VITAL SIGNS MEDICATIONS Medication Instructions Dosage Frequency Start Date End Date Duration Status Citalopram Hydrobromide 10 MG Orally Once a day 1 tablet 24h Mar, Active Tylenol 325 MG Orally 3 times a day 1 tablet with Tramadol 8h Mar, Active Cyclobenzaprine HCl 5 mg Orally at bedtime 1 tablet Mar, Active Senna S 8.6-50 MG Orally Once a day 2 tablet in the evening as needed 24h January, Active Ventolin HFA 108 (90 Base) MCG/ACT Inhalation every 6 hrs 2 puffs as needed 6h Feb, Active Tramadol HCl 50 mg Orally 3 times a day 1 tablet 8h January, Apr, 28 days Active RESULTS No Results PROCEDURES Procedure Date Ordered Result Body Site Minor complication (15 mins) March 26, 2018 INSTRUCTIONS MEDICATIONS ADMINISTERED No Known Medications MEDICAL (GENERAL) HISTORY Type Description Date Surgical History right femur fx 03/2018 Hospitalization History [facility]TI, [facility]osis-[facility] 01/2018 Hospitalization History Right hip surgery-[facility] 04/2018
--- OUTSIDE RECORDS SUMMARY | 2018-07-26 08:09 | XMS REPORT ---
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 Active 189861151 Problem Scoliosis of cervical spine, unspecified scoliosis type M41.9 Active 751948360 Problem Intractable chronic post-traumatic headache G44.321 Active 976854365 Problem 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 Active 67819428 Problem Slow transit constipation K59.01 Active 62687915 Problem Adult failure to thrive R62.7 Active 729774425 Problem Acquired hypothyroidism E03.9 Active 132595310 Problem Hypokalemia E87.6 Active 70735688 ALLERGIES No Information ENCOUNTERS Encounter Location Date Diagnosis [facility] [address] [facility] [id number] [address] May, [facility] [employer] [address] [place] [id number] May, Chronic daily headache R51 [facility] [address] [place] [id number] Apr, Intractable chronic post-traumatic headache G44.321 and Scoliosis of cervical spine, unspecified scoliosis type M41.9 [facility] [address] [facility] [id number], [place] [address] Apr, [facility] [address] [facility] [id number] [address] Mar, Chronic daily headache R51 and Slow transit constipation K59.01 [facility] [employer] [address] [place] [id number] Mar, Chronic daily headache R51 and 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 [place] [id number] [address] Mar, Scoliosis of cervical spine, unspecified scoliosis type M41.9 [place] [address] [address] 13 Feb, 2018 Scoliosis of cervical spine, unspecified scoliosis type M41.9 [place] [address] [address] Feb, Shortness of breath R06.02 Via [employer] [address] [place] [id number] January, Encounter for examination for admission to long-term Z02.2 ; Scoliosis of cervical spine, unspecified scoliosis type M41.9 ; 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 ; Adult failure to thrive R62.7 ; Hypokalemia E87.6 ; Acquired hypothyroidism E03.9 and Slow transit constipation K59.01 [address] [address] January, Adult failure to thrive R62.7 ; Scoliosis of cervical spine , unspecified scoliosis type M41.9 and 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 IMMUNIZATIONS No Known Immunizations SOCIAL HISTORY Never Assessed REASON FOR VISIT Hospital dismissal PLAN OF CARE VITAL SIGNS MEDICATIONS Medication Instructions Dosage Frequency Start Date End Date Duration Status Vitamin D-3 5000 UNIT Orally Once a day 1 tablet 24h Active Ventolin HFA 108 (90 Base) MCG/ACT Inhalation every 6 hrs 2 puffs as needed 6h 07 Feb, 2018 Active Ferrex 150 150 MG Orally Once a day 1 capsule 24h Active Aspirin EC 81 MG Orally Once a day 1 tablet 24h Active Calcium 500/D 500-200 MG-UNIT Orally Twice a day 1 tablet 12h Active Levothyroxine Sodium 88 MCG Orally Once a day 1 tablet on an empty stomach in the morning 24h Active Hydrocodone-Acetaminophen 7.5-325 MG Orally 3 times a day 1 tablet 8h Mar, Apr, 28 days Active Pravastatin Sodium 40 MG Orally Once a day 1 tablet 24h Active Klor-Con M20 20 meq Orally twice a day 1 tablet with food 12h Active Acetaminophen 650 MG Rectal every 4 hrs 1 suppository as needed 4h Active Pantoprazole Sodium 40 MG Orally Once a day 1 tablet 24h Active Mylanta 200-200-20 MG/5ML Orally every 4 hrs 30 ml as needed 4h Active Senna S 8.6-50 MG Orally twice a day 1 tablet 12h January, Apr, 30 days Active Promethazine HCl 25 MG Rectal every 4 hrs 1 suppository as needed 4h Active ProAir HFA 108 (90 Base) MCG/ACT Inhalation every 4 hrs 2 puffs as needed 4h Active Citalopram Hydrobromide 20 MG Orally Once a day 1 tablet 24h Mar, 30 days Active Fish Oil 1000 MG Orally three times per day 1 capsule Active Tylenol 325 MG Orally every 4 hrs as needed 2 tablets Mar, Active Senna-Docusate Sodium 8.6-50 MG Orally twice a day 1 tablet in the evening as needed 12h Active RESULTS No Results PROCEDURES No Known procedures INSTRUCTIONS MEDICATIONS ADMINISTERED No Known Medications MEDICAL (GENERAL) HISTORY Type Description Date Surgical History right femur fx 03/2018 Hospitalization History UTI, scoliosis-[facility] 01/2018 Hospitalization History Right hip surgery-[facility] 04/2018
--- OUTSIDE RECORDS SUMMARY | 2018-07-26 08:09 | XMS REPORT ---
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 Active 527080422 Problem Scoliosis of cervical spine, unspecified scoliosis type M41.9 Active 127146459 Problem Intractable chronic post-traumatic headache G44.321 Active 343324487 Problem 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 Active 34958905 Problem Slow transit constipation K59.01 Active 14221371 Problem Adult failure to thrive R62.7 Active 963894456 Problem Acquired hypothyroidism E03.9 Active 812433250 Problem Hypokalemia E87.6 Active 99705585 ALLERGIES No Information ENCOUNTERS Encounter Location Date Diagnosis [facility] [address], [place] [address] May, [facility] [address], [place] [address] May, [facility] [address] [place] [address] May, [facility] [employer] [address] [place] [id number] May, Chronic daily headache R51 [facility] [employer] [address] [place] [id number] Apr, Intractable chronic post-traumatic headache G44.321 and Scoliosis of cervical spine, unspecified scoliosis type M41.9 [facility] [address], [place] [address] Apr, [place] [facility] [id number] [address] Mar, Chronic daily headache R51 and Slow transit constipation K59.01 Via [facility] [address] [place] [id number] Mar, Chronic daily headache R51 and 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 [place] [address], [place] [address] Mar, Scoliosis of cervical spine, unspecified scoliosis type M41.9 [place] [address], [place] [address] 13 Feb, 2018 Scoliosis of cervical spine, unspecified scoliosis type M41.9 [place] [address], [place] [address] 07 Feb, 2018 Shortness of breath R06.02 [email or web address] [address] [place] [id number] January, Encounter for examination for admission to [facility] Z02.2 ; Scoliosis of cervical spine, unspecified scoliosis type M41.9 ; 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 ; Adult failure to thrive R62.7 ; Hypokalemia E87.6 ; Acquired hypothyroidism E03.9 and Slow transit constipation K59.01 [place] [id number] [address] January, Adult failure to thrive R62.7 ; Scoliosis of cervical spine , unspecified scoliosis type M41.9 and 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 IMMUNIZATIONS No Known Immunizations SOCIAL HISTORY Never Assessed REASON FOR VISIT Shelter Visit PLAN OF CARE Activity Details Follow Up prn Reason: VITAL SIGNS MEDICATIONS Medication Instructions Dosage Frequency Start Date End Date Duration Status Amitriptyline HCl 25 MG Orally twice a day 1 tablet 12h Apr, 30 days Active RESULTS No Results PROCEDURES Procedure Date Ordered Result Body Site Stable Visit (10 minutes) May 07, 2018 INSTRUCTIONS MEDICATIONS ADMINISTERED No Known Medications MEDICAL (GENERAL) HISTORY Type Description Date Surgical History right femur fx 03/2018 Hospitalization History [facility]TI, scoliosis-[facility] 01/2018 Hospitalization History Right hip surgery-[facility] 04/2018
--- OUTSIDE RECORDS SUMMARY | 2018-07-26 08:09 | XMS REPORT ---
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 Active 035646875 Problem Scoliosis of cervical spine, unspecified scoliosis type M41.9 Active 238563451 Problem Intractable chronic post-traumatic headache G44.321 Active 512721122 Problem 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 Active 06468881 Problem Slow transit constipation K59.01 Active 04563493 Problem Adult failure to thrive R62.7 Active 296888183 Problem Acquired hypothyroidism E03.9 Active 693534317 Problem Hypokalemia E87.6 Active 07459156 ALLERGIES No Information ENCOUNTERS Encounter Location Date Diagnosis [facility] [address] [facility] [id number] [address] May, [facility] [employer] [address] [place] [id number] May, Chronic daily headache R51 [facility] [address] [place] [id number] Apr, Intractable chronic post-traumatic headache G44.321 and Scoliosis of cervical spine, unspecified scoliosis type M41.9 [facility] [address] [facility] [id number], [place] [address] Apr, [facility] [address] [facility] [id number] [address] Mar, Chronic daily headache R51 and Slow transit constipation K59.01 [facility] [employer] [address] [place] [id number] Mar, Chronic daily headache R51 and 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 [place] [id number], [place] [address] Mar, Scoliosis of cervical spine, unspecified scoliosis type M41.9 [place] [address], [place] [address] 13 Feb, 2018 Scoliosis of cervical spine, unspecified scoliosis type M41.9 [place] [address], [place] [address] 07 Feb, 2018 Shortness of breath R06.02 [facility] [employer] [address] [place] [id number] January, Encounter for [facility] for [facility] to [facility] Z02.2 ; Scoliosis of cervical spine, unspecified scoliosis type M41.9 ; 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 ; Adult failure to thrive R62.7 ; Hypokalemia E87.6 ; Acquired hypothyroidism E03.9 and Slow transit constipation K59.01 [address], [place] [address] January, Adult failure to thrive R62.7 ; Scoliosis of cervical spine , unspecified scoliosis type M41.9 and 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 IMMUNIZATIONS No Known Immunizations SOCIAL HISTORY Never Assessed REASON FOR VISIT Correction PLAN OF CARE Activity Details Follow Up prn Reason: VITAL SIGNS MEDICATIONS Medication Instructions Dosage Frequency Start Date End Date Duration Status Acetaminophen 650 MG Rectal every 4 hrs 1 suppository as needed 4h Active Tylenol 325 MG Orally every 4 hrs as needed 2 tablets Mar, Active Mylanta 200-200-20 MG/5ML Orally every 4 hrs 30 ml as needed 4h Active Aspirin EC 81 MG Orally Once a day 1 tablet 24h Active ProAir HFA 108 (90 Base) MCG/ACT Inhalation every 4 hrs 2 puffs as needed 4h Active Levothyroxine Sodium 88 MCG Orally Once a day 1 tablet on an empty stomach in the morning 24h Active Citalopram Hydrobromide 20 MG Orally Once a day 1 tablet 24h Mar, 30 days Active Pravastatin Sodium 40 MG Orally Once a day 1 tablet 24h Active Promethazine HCl 25 MG Rectal every 4 hrs 1 suppository as needed 4h Active Ferrex 150 150 MG Orally Once a day 1 capsule 24h Active Amitriptyline HCl 25 MG Orally twice a day 1 tablet 12h Apr, 14 days Active Fish Oil 1000 MG Orally three times per day 1 capsule Active Senna S 8.6-50 MG Orally twice a day 1 tablet 12h January, Apr, 30 days Active Klor-Con M20 20 meq Orally twice a day 1 tablet with food 12h Active Calcium 500/D 500-200 MG-UNIT Orally Twice a day 1 tablet 12h Active Vitamin D-3 5000 UNIT Orally Once a day 1 tablet 24h Active Senna-Docusate Sodium 8.6-50 MG Orally twice a day 1 tablet in the evening as needed 12h Active Ventolin HFA 108 (90 Base) MCG/ACT Inhalation every 6 hrs 2 puffs as needed 6h 07 Feb, 2018 Active Hydrocodone-Acetaminophen 7.5-325 MG Orally 3 times a day 1 tablet 8h Mar, Apr, 28 days Active Pantoprazole Sodium 40 MG Orally Once a day 1 tablet 24h Active RESULTS No Results PROCEDURES Procedure Date Ordered Result Body Site Minor complication (15 mins) Apr 30, 2018 INSTRUCTIONS MEDICATIONS ADMINISTERED No Known Medications MEDICAL (GENERAL) HISTORY Type Description Date Surgical History right femur fx 03/2018 Hospitalization History UTI, scoliosis-[facility] 01/2018 Hospitalization History Right hip surgery-[facility] 04/2018
--- OUTSIDE RECORDS SUMMARY | 2018-07-26 08:09 | XMS REPORT ---
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 Active 153954435 Problem Scoliosis of cervical spine, unspecified scoliosis type M41.9 Active 060549560 Problem Intractable chronic post-traumatic headache G44.321 Active 387724698 Problem 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 Active 46164828 Problem Slow transit constipation K59.01 Active 50288196 Problem Adult failure to thrive R62.7 Active 601255491 Problem Acquired hypothyroidism E03.9 Active 396623888 Problem Hypokalemia E87.6 Active 96775844 ALLERGIES No Information ENCOUNTERS Encounter Location Date Diagnosis [facility] [employer] [facility] [address] [place] [id number] May, Chronic daily headache R51 [facility] [employer] [facility] [employer] [address] [place] [id number] Apr, Intractable chronic post-traumatic headache G44.321 and Scoliosis of cervical spine, unspecified scoliosis type M41.9 [facility] [address] [id number], [place] [address] Apr, [facility] [address] [id number], [place] [address] Mar, Chronic daily headache R51 and Slow transit constipation K59.01 [facility] [employer] [address] [place] [id number] Mar, Chronic daily headache R51 and 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 [facility] [address] [facility] [id number] [address] Mar, 2018 Scoliosis of cervical spine, unspecified scoliosis type M41.9 [place] [id number] [address] 13 Feb, 2018 Scoliosis of cervical spine, unspecified scoliosis type M41.9 [place] [id number] [address] 07 Feb, 2018 Shortness of breath R06.02 Via [facility] [address] [place], [place] [id number] January, Encounter for examination for admission to care home Z02.2 ; Scoliosis of cervical spine, unspecified scoliosis type M41.9 ; 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 ; Adult failure to thrive R62.7 ; Hypokalemia E87.6 ; Acquired hypothyroidism E03.9 and Slow transit constipation K59.01 [place] [id number] [address] January, Adult failure to thrive R62.7 ; Scoliosis of cervical spine , unspecified scoliosis type M41.9 and 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 IMMUNIZATIONS No Known Immunizations SOCIAL HISTORY Never Assessed REASON FOR VISIT start hydrocodone PLAN OF CARE VITAL SIGNS MEDICATIONS Medication Instructions Dosage Frequency Start Date End Date Duration Status Hydrocodone-Acetaminophen 7.5-325 MG Orally 3 times a day 1 tablet 8h 31 Mar, 2018 Apr, 28 days Active Senna S 8.6-50 MG Orally twice a day 1 tablet 12h January, Apr, 30 days Active Citalopram Hydrobromide 20 MG Orally Once a day 1 tablet 24h 24 Mar, 2018 30 days Active RESULTS No Results PROCEDURES No Known procedures INSTRUCTIONS MEDICATIONS ADMINISTERED No Known Medications MEDICAL (GENERAL) HISTORY Type Description Date Surgical History right femur fx 03/2018 Hospitalization History UTI, scoliosis-[facility] 01/2018 Hospitalization History Right hip surgery-[facility] 04/2018
--- OUTSIDE RECORDS SUMMARY | 2018-07-26 08:09 | XMS REPORT ---
Author Author LAUREN ALMENDAREZ [facility] Address [address] [place] [address] Care Team Providers Care Administration Assistant Name Role Phone LAUREN ALMENDAREZ Unavailable PROBLEMS Type Condition ICD9-CM Code LIY30-CC Code Onset Dates Condition Status SNOMED Code Problem Scoliosis of cervical spine, unspecified scoliosis type M41.9 Active 844741306 Problem Anemia of chronic disease D63.8 Active 318992735 Problem 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 Active 56173587 Problem Acquired hypothyroidism E03.9 Active 797382370 Problem Adult failure to thrive R62.7 Active 476696910 Problem 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 Active 113821314 Problem Hypokalemia E87.6 Active 93527885 Problem Slow transit constipation K59.01 Active 80319629 ALLERGIES No Information ENCOUNTERS Encounter Location Date Diagnosis [place] [id number] [place] [address] Apr, [place] [id number] [place] [address] Mar, Chronic daily headache R51 and Slow transit constipation K59.01 [facility] [place] [address] [place], [place] [id number] Mar, Chronic daily headache R51 and 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 [place] [address] [place] [address] Mar, Scoliosis of cervical spine, unspecified scoliosis type M41.9 [place] [address] [id number] [place] [address] Feb, Scoliosis of cervical spine, unspecified scoliosis type M41.9 [place] [id number] [place] [address] Feb, Shortness of breath R06.02 [facility] [place] [address] [place] [id number] January, Encounter for examination for admission to detention Z02.2 ; Scoliosis of cervical spine, unspecified scoliosis type M41.9 ; 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 ; Adult failure to thrive R62.7 ; Hypokalemia E87.6 ; Acquired hypothyroidism E03.9 and Slow transit constipation K59.01 [facility] [address] [facility] [id number] [address] Jan, 2018 Adult failure to thrive R62.7 ; Scoliosis of cervical spine , unspecified scoliosis type M41.9 and 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 IMMUNIZATIONS No Known Immunizations SOCIAL HISTORY Never Assessed REASON FOR VISIT Controlled Med Refill PLAN OF CARE VITAL SIGNS MEDICATIONS Medication Instructions Dosage Frequency Start Date End Date Duration Status Tramadol HCl 50 mg Orally 2 times a day 1 tablet 12h January, 28 days Active RESULTS No Results PROCEDURES No Known procedures INSTRUCTIONS MEDICATIONS ADMINISTERED No Known Medications MEDICAL (GENERAL) HISTORY Type Description Date Surgical History right femur fx 03/2018 Hospitalization History UTI, scoliosis-[facility] 01/2018 Hospitalization History Right hip surgery-[facility] 04/2018
--- OUTSIDE RECORDS SUMMARY | 2018-07-26 08:10 | XMS REPORT ---
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 Active 158113435 Problem Hypokalemia E87.6 Active 05428567 Problem Slow transit constipation K59.01 Active 94867041 ALLERGIES No Known Allergies ENCOUNTERS Encounter Location Date Diagnosis [place] [id number] [place] [address] Mar, Chronic daily headache R51 and Slow transit constipation K59.01 [facility] [address] [place] [id number] Mar, Chronic daily headache R51 and 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 [place] [address] [place] [address] Mar, Scoliosis of cervical spine, unspecified scoliosis type M41.9 [place] [address] [place] [address] Feb, Scoliosis of cervical spine, unspecified scoliosis type M41.9 [place] [address] [place] [id number] [place] [address] Feb, Shortness of breath R06.02 [facility] [address] [id number] January, Encounter for examination for admission to residential Z02.2 ; Scoliosis of cervical spine, unspecified scoliosis type M41.9 ; 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 ; Adult failure to thrive R62.7 ; Hypokalemia E87.6 ; Acquired hypothyroidism E03.9 and Slow transit constipation K59.01 [facility] [address] [facility] [id number] [address] January, Adult failure to thrive R62.7 ; Scoliosis of cervical spine , unspecified scoliosis type M41.9 and 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 IMMUNIZATIONS No Known Immunizations SOCIAL HISTORY Never Assessed REASON FOR VISIT WA Admission PLAN OF CARE VITAL SIGNS MEDICATIONS Medication Instructions Dosage Frequency Start Date End Date Duration Status Pravastatin Sodium 40 mg Orally Once a day at bedtime 1 tablet Active Aspirin 81 81 MG Orally Once a day 1 tablet 24h Active Spiriva Respimat 2.5 MCG/ACT Inhalation Once a day 1 puff 24h Active Klor-Con M20 20 meq Orally twice a day 1 tablet with food 12h Active ProAir HFA 108 (90 Base) MCG/ACT Inhalation every 4 hrs 2 puffs as needed 4h Active Meloxicam 15 MG Orally Once a day 1 tablet 24h Active Levothyroxine Sodium 88 MCG Orally Once a day 1 tablet on an empty stomach in the morning 24h Active Topiramate 25 MG Orally Twice a day 1 tablet 12h Active Calcium Carbonate-Vitamin D3 600-400 MG-UNIT Orally Once a day 1 tablet with a meal 24h Active Cephalexin 500 MG Orally every 12 hrs 1 capsule 12h January, January, Active Citalopram Hydrobromide 10 MG Orally Once a day 1 tablet 24h Active Pantoprazole Sodium 40 MG Orally Once a day 1 tablet 24h Active Advair Diskus 100-50 MCG/DOSE Inhalation Twice a day 1 puff 12h Active Fish Oil 1000 MG Orally 3 times a day 1 capsule 8h Active RESULTS No Results PROCEDURES No Known procedures INSTRUCTIONS MEDICATIONS ADMINISTERED No Known Medications MEDICAL (GENERAL) HISTORY Type Description Date Hospitalization History UTI, scoliosis-[facility] 01/2018
--- OUTSIDE RECORDS SUMMARY | 2018-07-26 08:10 | XMS REPORT | Continuity of Care Document ---
Author Author [facility] Organization [facility] Address Unknown Phone Unavailable Allergies Active [...] 03/26/2015 LUCIUS, BOBAN N Ot V10.05 03/26/2015 LUCUIS, BOBAN N Ot V58.69 03/26/2015 LUCIUS, BOBAN [...] MD Ot Z99.81 DEPENDENCE ON SUPPLEMENTAL OXYGEN 01/20/2018 BARBARA TUCKER MD Ot J44.9 CHRONIC OBSTRUCTIVE PULMONARY DISEASE, U 01/20/2018 BARBARA TUCKER MD Ot J98.4 OTHER DISORDERS OF LUNG 01/20/2018 BARBARA TUCKER MD Ot M41.80 OTHER FORMS OF SCOLIOSIS, SITE UNSPECIFI 01/20/2018 BARBARA TUCKER MD Ot R06.02 SHORTNESS OF BREATH 01/20/2018 BARBARA TUCKER MD Ot R09.02 HYPOXEMIA 01/20/2018 BARBARA TUCKER MD Ot Z79.51 CORRECTION (CURRENT) USE OF INHALED STERO 01/20/2018 BARBARA TUCKER MD Ot Z85.038 PERSONAL HISTORY OF MALIGNANT NEOPLASM O 01/20/2018 BARBARA TUCKER MD Ot Z87.442 PERSONAL HISTORY OF URINARY CALCULI 01/20/2018 BARBARA TUCKER MD Ot Z92.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 CHEMO 01/20/2018 BARBARA TUCKER MD Ot Z99.81 DEPENDENCE ON SUPPLEMENTAL OXYGEN 01/29/2018 ELPIDIO DO, ESTELLE K Ot E03.9 HYPOTHYROIDISM, UNSPECIFIED 01/29/2018 ELPIDIO DO, ESTELLE K Ot E78.00 PURE HYPERCHOLESTEROLEMIA, UNSPECIFIED 01/29/2018 ELPIDIO DO, ESTELLE K Ot E86.0 DEHYDRATION 01/29/2018 ELPIDIO DO, ESTELLE K Ot F03.90 UNSPECIFIED DEMENTIA WITHOUT BEHAVIORAL 01/29/2018 ELPIDIO DO, ESTELLE K Ot I10 ESSENTIAL (PRIMARY) HYPERTENSION 01/29/2018 ELPIDIO DO, ESTELLE K Ot N39.0 URINARY TRACT INFECTION, SITE NOT SPECIF 01/29/2018 ELPIDIO DO, ESTELLE K Ot R09.02 HYPOXEMIA 01/29/2018 ELPIDIO DO, ESTELLE K Ot R50.9 FEVER, UNSPECIFIED 01/29/2018 ELPIDIO DO, ESTELLE K Ot R62.7 ADULT FAILURE TO THRIVE 01/29/2018 ELPIDIO DO, ESTELLE K Ot Z66 DO NOT RESUSCITATE 01/29/2018 ELPIDIO DO, ESTELLE K Ot 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 01/29/2018 ELPIDIO DO, ESTELLE K Ot Z85.038 PERSONAL HISTORY OF MALIGNANT NEOPLASM O 01/29/2018 ELPIDIO DO, ESTELLE K Ot Z87.828 PERSONAL HISTORY OF OTH (HEALED) PHYSICA 01/29/2018 ELPIDIO DO, ESTELLE K Ot Z90.49 ACQUIRED ABSENCE OF OTHER SPECIFIED PART 01/29/2018 MARTIN DO, ESTELLE K Ot Z92.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 CHEMO 01/29/2018 MARTIN DO, ESTELLE K Ot Z92.3 PERSONAL HISTORY OF IRRADIATION 01/31/2018 ELPIDIO DO, ESTELLE K Ot E03.9 HYPOTHYROIDISM, UNSPECIFIED 01/31/2018 ELPIDIO DO, ESTELLE K Ot E78.00 PURE HYPERCHOLESTEROLEMIA, UNSPECIFIED 01/31/2018 ELPIDIO DO, ESTELLE K Ot E86.0 DEHYDRATION 01/31/2018 ELPIDIO DO, ESTELLE K Ot F03.90 UNSPECIFIED DEMENTIA WITHOUT BEHAVIORAL 01/31/2018 ELPIDIO DO, ESTELLE K Ot I10 ESSENTIAL (PRIMARY) HYPERTENSION 01/31/2018 ELPIDIO DO, ESTELLE K Ot N39.0 URINARY TRACT INFECTION, SITE NOT SPECIF 01/31/2018 ELPIDIO DO, ETSELLE K Ot R09.02 HYPOXEMIA 01/31/2018 ELPIDIO DO, ESTELLE K Ot R50.9 FEVER, UNSPECIFIED 01/31/2018 ELPIDIO DO, ESTELLE K Ot R62.7 ADULT FAILURE TO THRIVE 01/31/2018 ELPIDIO DO, ESTELLE K Ot Z66 DO NOT RESUSCITATE 01/31/2018 ELPIDIO DO, ESTELLE K Ot Z79.82 CORRECTION (CURRENT) USE OF ASPIRIN 01/31/2018 ELPIDIO DO ESTELLE K Ot Z85.038 PERSONAL HISTORY OF MALIGNANT NEOPLASM O 01/31/2018 ESTELLE MAGALLANES DO Ot Z87.828 PERSONAL HISTORY OF OTH (HEALED) PHYSICA 01/31/2018 ESTELLE MAGALLANES DO Ot Z90.49 ACQUIRED ABSENCE OF OTHER SPECIFIED PART 01/31/2018 ESTELLE MAGALLANES DO Ot Z92.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 CHEMO 01/31/2018 ESTELLE MAGALLANES DO Ot Z92.3 PERSONAL HISTORY OF IRRADIATION 04/19/2018 HEBERT BRADY MD Ot D64.9 ANEMIA, UNSPECIFIED 04/19/2018 HEBERT BRADY MD Ot E03.9 HYPOTHYROIDISM, UNSPECIFIED 04/19/2018 HEBERT BRADY MD Ot E78.00 PURE HYPERCHOLESTEROLEMIA, UNSPECIFIED 04/19/2018 HEBERT BRADY MD, Ot I10 ESSENTIAL (PRIMARY) HYPERTENSION 04/19/2018 HEBERT BRADY MD, Ot J18.9 PNEUMONIA, UNSPECIFIED ORGANISM 04/19/2018 HEBERT BRADY MD, Ot J44.9 CHRONIC OBSTRUCTIVE PULMONARY DISEASE, U 04/19/2018 HEBERT BRADY MD, Ot M41.9 SCOLIOSIS, UNSPECIFIED 04/19/2018 HEBERT BRADY MD Ot N39.0 URINARY TRACT INFECTION, SITE NOT SPECIF 04/19/2018 HEBERT BRADY MD Ot S72.351A DISPLACED COMMINUTED FRACTURE OF SHAFT O 04/19/2018 HEBERT BRADY MD Ot W19.XXXA UNSPECIFIED FALL, INITIAL ENCOUNTER 04/19/2018 HEBERT BRADY MD Ot Y92.[address] IN HALF-WAY PLACE 04/19/2018 HEBERT BRADY MD Ot Z79.82 CORRECTION (CURRENT) USE OF ASPIRIN 04/19/2018 HEBERT BRADY MD, Ot Z85.038 PERSONAL HISTORY OF MALIGNANT NEOPLASM O 04/19/2018 HEBERT BRADY MD, Ot Z92.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 CHEMO 04/23/2018 HEBERT BRADY MD Ot B95.2 ENTEROCOCCUS THE CAUSE OF DISEASES CL 04/23/2018 HEBERT BRADY MD Ot B95.4 OTH STREPTOCOCCUS THE CAUSE OF DISEAS 04/23/2018 HEBERT BRADY MD, Ot D50.9 IRON DEFICIENCY ANEMIA, UNSPECIFIED 04/23/2018 HEBERT BRADY MD, Ot E03.9 HYPOTHYROIDISM, UNSPECIFIED 04/23/2018 HEBERT BRADY MD, Ot E78.5 HYPERLIPIDEMIA, UNSPECIFIED 04/23/2018 HEBERT BRADY MD, Ot I10 ESSENTIAL (PRIMARY) HYPERTENSION 04/23/2018 HEBERT BRADY MD, Ot J18.9 PNEUMONIA, UNSPECIFIED ORGANISM 04/23/2018 HEBERT BRADY MD, Ot J44.9 CHRONIC OBSTRUCTIVE PULMONARY DISEASE, U 04/23/2018 HEBERT BRADY MD, Ot J96.01 ACUTE RESPIRATORY FAILURE WITH HYPOXIA 04/23/2018 HEBERT BRADY MD, Ot J96.02 ACUTE RESPIRATORY FAILURE WITH HYPERCAPN 04/23/2018 HEBERT BRADY MD, Ot M41.9 SCOLIOSIS, UNSPECIFIED 04/23/2018 HEBERT BRADY MD, Ot N39.0 URINARY TRACT INFECTION, SITE NOT SPECIF 04/23/2018 HEBERT BRADY MD Ot R11.2 NAUSEA WITH VOMITING, UNSPECIFIED 04/23/2018 HEBERT BRADY MD Ot R15.9 FULL INCONTINENCE OF FECES 04/23/2018 HEBERT BRADY MD, Ot R33.9 RETENTION OF URINE, UNSPECIFIED 04/23/2018 HEBERT BRADY MD Ot S72.351A DISPLACED COMMINUTED FRACTURE OF SHAFT O 04/23/2018 HEBERT BRADY MD, Ot W19.XXXA UNSPECIFIED FALL, INITIAL ENCOUNTER 04/23/2018 HEBERT BRADY MD, Ot Y92.[address] IN HALF-WAY PLACE 04/23/2018 HEBERT BRADY MD, Ot 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 04/23/2018 HEBERT BRADY MD, Ot Z85.038 PERSONAL HISTORY OF MALIGNANT NEOPLASM O 04/23/2018 HEBERT BRADY MD, Ot Z92.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 CHEMO Procedures Code Description Performed By Performed On [id number] REPOSITION RIGHT FEMORAL SHAFT WITH INT 04/17/2018 [id number] SUPPLEMENT RIGHT FEMORAL SHAFT WITH AUTO 04/17/2018 Results Test Result Range Complete urinalysis with [...] culture - 01/12/18 13:35 Bacterial urine culture [id number] NRG COLONY COUNT 10,000/ML - 100,000/ML NRG FTX;REPORTABLE SENSITIVITY REPORTED 01/13 15:20 NR FREE TEXT ENTRY 3 MIXED GRAM POSITIVE MINH <10,000/ML NR Bacterial susceptibility panel - 01/12/18 13:35 Gentamicin [...] plasma calcium measurement (mass/volume) 9.2 mg/dL 8.5-10.1 Complete blood count (CBC) with automated white blood cell (WBC) differential - 01/20/18 08:30 Blood leukocytes automated count (number/volume) 8.1 10*3/uL 4.3-11.0 Blood erythrocytes automated count (number/volume) 3.58 10*6/uL 4.35-5.85 Venous blood hemoglobin measurement (mass/volume) 11.8 g/dL 11.5-16.0 Blood hematocrit (volume fraction) 41 % 35-52 Automated erythrocyte mean corpuscular volume 114 [foz_us] 80-99 Automated erythrocyte mean corpuscular hemoglobin (mass per erythrocyte) 33 pg 25-34 Automated erythrocyte mean corpuscular hemoglobin concentration measurement ( mass/volume) 29 g/dL 32-36 Automated erythrocyte distribution width ratio 13.9 % 10.0-14.5 Automated blood platelet count (count/volume) 268 10*3/uL 130-400 Automated blood platelet mean volume measurement 9.2 [foz_us] 7.4-10.4 Automated blood neutrophils/100 leukocytes 87 % 42-75 Automated blood lymphocytes/100 leukocytes 6 % 12-44 Blood monocytes/100 leukocytes 7 % 0-12 Automated blood eosinophils/100 leukocytes 0 % 0-10 Automated blood basophils/100 leukocytes 0 % 0-10 Blood neutrophils automated count (number/volume) 7.0 10*3 1.8-7.8 Blood lymphocytes automated count (number/volume) 0.5 10*3 1.0-4.0 Blood monocytes automated count (number/volume) 0.6 10*3 0.0-1.0 Automated eosinophil count 0.0 10*3/uL 0.0-0.3 Automated blood basophil count (count/volume) 0.0 10*3/uL 0.0-0.1 Blood lactic acid measurement (moles/volume) - 01/20/18 08:30 Blood lactic acid measurement (moles/volume) 0.68 mmol/L 0.50-2.00 Comprehensive metabolic panel - 01/20/18 08:30 Serum or plasma sodium measurement (moles/volume) 146 mmol/L 135-145 Serum or plasma potassium measurement (moles/volume) 4.5 mmol/L 3.6-5.0 Serum or plasma chloride measurement (moles/volume) 95 mmol/L 98-107 Carbon dioxide 41 mmol/L 21-32 Serum or plasma anion gap determination (moles/volume) 10 mmol/L 5-14 Serum or plasma urea nitrogen measurement (mass/volume) 23 mg/dL 7-18 Serum or plasma creatinine measurement (mass/volume) 0.55 mg/dL 0.60-1.30 Serum or plasma urea nitrogen/creatinine mass ratio 42 NRG Serum or plasma creatinine measurement with calculation of estimated glomerular filtration rate > NRG Serum or plasma glucose measurement (mass/volume) 132 mg/dL 70-105 Serum or plasma calcium measurement (mass/volume) 9.9 mg/dL 8.5-10.1 Serum or plasma total bilirubin measurement (mass/volume) 0.4 mg/dL 0.1-1.0 Serum or plasma alkaline phosphatase measurement (enzymatic activity/volume) 76 U/L 40-136 Serum or plasma aspartate aminotransferase measurement (enzymatic activity/ volume) 23 U/L 5-34 Serum or plasma alanine aminotransferase measurement (enzymatic activity/volume ) 20 U/L 0-55 Serum or plasma protein measurement (mass/volume) 6.5 g/dL 6.4-8.2 Serum or plasma albumin measurement (mass/volume) 3.6 g/dL 3.2-4.5 Blood manual differential performed detection - 01/20/18 08:30 Blood monocytes/100 leukocytes 9 % NRG Manual blood segmented neutrophils/100 leukocytes 86 % NRG Blood band neutrophils/100 leukocytes 1 % NRG Manual blood lymphocytes/100 leukocytes 3 % NRG Manual eosinophils/100 leukocytes in nose 1 % NRG Blood erythrocyte morphology finding identification NORMAL NRG Bacterial blood culture - 01/20/18 08:30 Bacterial blood culture NG NRG Bacterial blood culture - 01/20/18 08:55 Bacterial blood culture NG NRG Complete urinalysis with reflex to culture - 01/20/18 09:34 Urine color determination YELLOW NRG Urine clarity determination SLIGHTLY CLOUDY NRG Urine pH measurement by test strip 6 5-9 Specific gravity of urine by test strip 1.020 1.016- 1.022 Urine protein assay by test strip, semi-quantitative 3+ NEGATIVE Urine glucose detection by automated test strip NEGATIVE NEGATIVE Erythrocytes detection in urine sediment by light microscopy 5+ NEGATIVE Urine ketones detection by automated test strip 1+ NEGATIVE Urine nitrite detection by test strip NEGATIVE NEGATIVE Urine total bilirubin detection by test strip NEGATIVE NEGATIVE Urine urobilinogen measurement by automated test strip (mass/volume) NORMAL NORMAL Urine leukocyte esterase detection by dipstick 1+ NEGATIVE Automated urine sediment erythrocyte count by microscopy (number/high power field) TNTC NRG Automated urine sediment leukocyte count by microscopy (number/high power field ) [HPF] NRG Bacteria detection in urine sediment by light microscopy MODERATE NRG Squamous epithelial cells detection in urine sediment by light microscopy NONE NRG Crystals detection in urine sediment by light microscopy NONE NRG Casts detection in urine sediment by light microscopy NONE NRG Mucus detection in urine sediment by light microscopy NEGATIVE NRG Complete urinalysis with reflex to culture YES NRG Bacterial urine culture - 01/20/18 09:34 Bacterial urine culture NG NRG Complete blood count (CBC) with automated white blood cell (WBC) differential - 01/29/18 00:22 Blood leukocytes automated count (number/volume) 10.2 10*3/uL 4.3-11.0 Blood erythrocytes automated count (number/volume) 3.54 10*6/uL 4.35-5.85 Venous blood hemoglobin measurement (mass/volume) 11.6 g/dL 11.5-16.0 Blood hematocrit (volume fraction) 42 % 35-52 Automated erythrocyte mean corpuscular volume 117 [foz_us] 80-99 Automated erythrocyte mean corpuscular hemoglobin (mass per erythrocyte) 33 pg 25-34 Automated erythrocyte mean corpuscular hemoglobin concentration measurement ( mass/volume) 28 g/dL 32-36 Automated erythrocyte distribution width ratio 13.4 % 10.0-14.5 Automated blood platelet count (count/volume) 204 10*3/uL 130-400 Automated blood platelet mean volume measurement 9.5 [foz_us] 7.4-10.4 Automated blood neutrophils/100 leukocytes 84 % 42-75 Automated blood lymphocytes/100 leukocytes 7 % 12-44 Blood monocytes/100 leukocytes 10 % 0-12 Automated blood eosinophils/100 leukocytes 0 % 0-10 Automated blood basophils/100 leukocytes 0 % 0-10 Blood neutrophils automated count (number/volume) 8.5 10*3 1.8-7.8 Blood lymphocytes automated count (number/volume) 0.7 10*3 1.0-4.0 Blood monocytes automated count (number/volume) 1.0 10*3 0.0-1.0 Automated eosinophil count 0.0 10*3/uL 0.0-0.3 Automated blood basophil count (count/volume) 0.0 10*3/uL 0.0-0.1 Blood manual differential performed detection - 01/29/18 00:22 Blood monocytes/100 leukocytes 5 % NRG Manual blood segmented neutrophils/100 leukocytes 90 % NRG Blood band neutrophils/100 leukocytes 1 % NRG Manual blood lymphocytes/100 leukocytes 4 % NRG Manual eosinophils/100 leukocytes in nose 0 % NRG Manual blood basophils/100 leukocytes 0 % NRG Blood erythrocyte morphology finding identification NORMAL NR Blood lactic acid measurement (moles/volume) - 01/29/18 00:22 Blood lactic acid measurement (moles/volume) 0.57 mmol/L 0.50-2.00 Comprehensive metabolic panel - 01/29/18 00:22 Serum or plasma sodium measurement (moles/volume) 156 mmol/L 135-145 Serum or plasma potassium measurement (moles/volume) 4.4 mmol/L 3.6-5.0 Serum or plasma chloride measurement (moles/volume) 100 mmol/L 98-107 Carbon dioxide 45 mmol/L 21-32 Serum or plasma anion gap determination (moles/volume) 11 mmol/L 5-14 Serum or plasma urea nitrogen measurement (mass/volume) 44 mg/dL 7-18 Serum or plasma creatinine measurement (mass/volume) 0.60 mg/dL 0.60-1.30 Serum or plasma urea nitrogen/creatinine mass ratio 73 NRG Serum or plasma creatinine measurement with calculation of estimated glomerular filtration rate > NRG Serum or plasma glucose measurement (mass/volume) 102 mg/dL 70-105 Serum or plasma calcium measurement (mass/volume) 10.0 mg/dL 8.5-10.1 Serum or plasma total bilirubin measurement (mass/volume) 0.5 mg/dL 0.1-1.0 Serum or plasma alkaline phosphatase measurement (enzymatic activity/volume) 56 U/L 40-136 Serum or plasma aspartate aminotransferase measurement (enzymatic activity/ volume) 12 U/L 5-34 Serum or plasma alanine aminotransferase measurement (enzymatic activity/volume ) 11 U/L 0-55 Serum or plasma protein measurement (mass/volume) 6.5 g/dL 6.4-8.2 Serum or plasma albumin measurement (mass/volume) 3.6 g/dL 3.2-4.5 Magnesium - 01/29/18 00:22 Magnesium 2.2 mg/dL 1.8-2.4 Bacterial blood culture - 01/29/18 00:22 Bacterial blood culture NG NRG Complete urinalysis with reflex to culture - 01/29/18 00:30 Urine color determination YELLOW NRG Urine clarity determination VERY CLOUDY NRG Urine pH measurement by test strip 8 5-9 Specific gravity of urine by test strip 1.010 1.016- 1.022 Urine protein assay by test strip, semi-quantitative 3+ NEGATIVE Urine glucose detection by automated test strip NEGATIVE NEGATIVE Erythrocytes detection in urine sediment by light microscopy 5+ NEGATIVE Urine ketones detection by automated test strip 2+ NEGATIVE Urine nitrite detection by test strip [...] detection in urine sediment by light microscopy PRESENT NRG Casts detection in urine sediment by light microscopy NONE NRG Mucus detection in urine sediment by light microscopy SMALL NRG Complete urinalysis with reflex to culture YES NRG Amorphous sediment detection in urine sediment by light microscopy MOD COLTON URATES NRG Bacterial urine culture - 01/29/18 00:30 Bacterial urine culture SEE REPORT NRG COLONY COUNT . NRG Bacterial blood culture - 01/29/18 00:40 Bacterial blood culture NG NRG Encounters ACCT No. Visit Date/Time Discharge Status Pt. Type Provider Facility Loc./Unit Complaint [id number] 04/16/2018 10:14:00 04/23/2018 14:00:00 DIS Inpatient JOSE ANTONIO LEONE, HEBERT [place] [facility] 4TH RT FEMUR FX,WEAKNESS [id number] 01/29/2018 00:16:00 01/29/2018 02:30:00 DIS Emergency ELPIDIO DO, ESTELLE K [facility] ER FEVER,RESP DISTRESS [id number] 01/20/2018 08:16:00 01/20/2018 11:59:00 DIS Emergency BARBARA TUCKER MD [facility] ER SHORTNESS OF AIR [id number] 01/12/2018 16:00:00 01/15/2018 14:50:00 DIS Inpatient LUIS FERNANDO LEONE, KODAK [place] [facility] 4TH L PYLEO [id number] 02/21/2016 13:08:00 02/21/2016 23:59:59 CLS Preadmit DIAN ESTRADAP [facility] ONC [id number] 02/16/2015 13:12:00 02/16/2015 23:59:59 CLS Outpatient BENEDICT KAN [facility] ONC [id number] 02/19/2014 13:51:00 02/19/2014 23:59:59 CLS Outpatient BENEDICT KAN [facility] ONC [id number] 02/13/2013 09:26:00 02/13/2013 23:59:59 CLS Outpatient BENEDICT KAN [facility] ONC [id number] 07/24/2018 18:54:00 PEN Preadmit HAILEY ECHEVARRIA DO [facility] SDC ABCESS OF BUTTOCKS [id number] 08/12/2012 13:09:00 Document Registration
--- OUTSIDE RECORDS SUMMARY | 2018-07-26 08:10 | XMS REPORT ---
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 Active 34456843 Problem Acquired hypothyroidism E03.9 Active 680965381 Problem Adult failure to thrive R62.7 Active 178103190 Problem 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 Active 092734814 Problem Hypokalemia E87.6 Active 08698338 Problem Slow transit constipation K59.01 Active 73308259 ALLERGIES No Information ENCOUNTERS Encounter Location Date Diagnosis [place] [id number] [place] [address] Mar, Chronic daily headache R51 and Slow transit constipation K59.01 [facility] [employer] [address] [id number] Mar, Chronic daily headache R51 and 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 [place] [id number] [place] [address] Mar, Scoliosis of cervical spine, unspecified scoliosis type M41.9 [place] [address] [place] [id number] [place] [address] Feb, Scoliosis of cervical spine, unspecified scoliosis type M41.9 [place] [address] [id number] [address] Feb, Shortness of breath R06.02 [facility] [employer] [address] [id number] January, Encounter for examination for admission to half-way Z02.2 ; Scoliosis of cervical spine, unspecified scoliosis type M41.9 ; 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 ; Adult failure to thrive R62.7 ; Hypokalemia E87.6 ; Acquired hypothyroidism E03.9 and Slow transit constipation K59.01 [facility] [address] [facility] [id number] [place] [id number] January, Adult failure to thrive R62.7 ; Scoliosis of cervical spine , unspecified scoliosis type M41.9 and 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 IMMUNIZATIONS No Known Immunizations SOCIAL HISTORY Never Assessed REASON FOR VISIT Custodial Admission PLAN OF CARE Activity Details Follow Up prn Reason: VITAL SIGNS MEDICATIONS Medication Instructions Dosage Frequency Start Date End Date Duration Status Senna S 8.6-50 MG Orally Once a day 2 tablet in the evening as needed 24h January, Active Tramadol HCl 50 mg Orally 2 times a day 1 tablet 12h January, Feb, 28 days Active RESULTS No Results PROCEDURES Procedure Date Ordered Result Body Site [place] [facility] VISIT ESTABLISHED PATIENT January 17, 2018 INSTRUCTIONS MEDICATIONS ADMINISTERED No Known Medications MEDICAL (GENERAL) HISTORY Type Description Date Hospitalization History UTI, scoliosis-[facility] 01/2018
[2018-07-26 09:00] VITALS: BP 150/78
[2018-07-26] MEDS ORDERED: ceFAZolin 1,000 MG/10 ML (ANCEF) VIAL ONE (11:28)
[2018-07-26] MEDS ORDERED: metroNIDAZOLE 500MG/100ML IVPB 100 ML ONE (11:28)
[2018-07-26] MEDS ORDERED: NS (IVPB) 50 ML ONE (11:28)
[2018-07-26] MEDS ORDERED: ceFAZolin INJECTION 1,000 MG in NS (IVPB) 50 ML IV ONE (11:30)
[2018-07-26] MEDS ORDERED: metroNIDAZOLE 500MG/100ML IVPB 100 ML IV ONE (11:30)
[2018-07-26] MEDS ORDERED: BUP/EPI 0.5% 1:200,000 (SENSORCAINE) 30 ML VIAL ONE (11:57)
[2018-07-26] MEDS ORDERED: LIDOCAINE 1% INJ 20 ML 20 ML VIAL ONE (12:00)
[2018-07-26] MEDS ORDERED: BUPIVACAINE 0.5% 30 ML (SENSORCAINE) VIAL ONE (12:00)
[2018-07-26] MEDS ORDERED: proPOfol 200 MG/20 ML (DIPRIVAN) VIAL IV ONE (12:15)
[2018-07-26] MEDS ORDERED: KETAMINE HCL 100 MG/ML 5 ML VIAL ONE (12:15)
[2018-07-26] MEDS ORDERED: MIDAZOLAM 2 MG/2 ML (VERSED) VIAL ONE (12:15)
[2018-07-26] MEDS ORDERED: LIDOCAINE PF 2% 5 ML (XYLOCAINE) VIAL ONE (12:15)
--- NOTE | 2018-07-26 13:07 | Progress Note-Post Operative ---
Post-Operative Progess Note Surgeon (s)/Mohs Surgeon/General Dermatologist (s) Surgeon HAILEY ECHEVARRIA DO Mohs Surgeon/General Dermatologist: na Pre-Operative Diagnosis right buttock abscess Post-Operative Diagnosis same Procedure & Operative Findings Date of Procedure 07/26/18 Procedure Performed/Findings incision and drainage right buttock abscess and sharp debridement of necrotic tissue 7.5x4x2 cm Anesthesia Type mac c local Estimated Blood Loss Estimated blood loss (mL): min Specimens/Packing Specimens Removed culture HAILEY ECHEVARRIA DO Jul 26, 2018 13:07
[2018-07-26] MEDS ORDERED: SULF1TAB35 PO (13:13)
[2018-07-26] MEDS ORDERED: fentaNYL INJECTION 100 MCG/2 ML AMP IVP ONE (13:15)
[2018-07-26] MEDS ORDERED: ONDANSETRON 4 MG/2 ML (SDV) Z0FRAN IVP PRN (13:15)
--- NOTE | 2018-07-26 13:19 | Discharge Inst-Simple/Standard ---
Discharge Inst-Standard Discharge Medications New, Converted or Re-Newed RX: RX on Chart Patient Instructions/Follow Up Plan of Care/Instructions/FU: PERFORM WOUND CARE DAILY AND IF SOILED. IRRIGATE WITH SALINE THEN PACK WITH 1/2 INCH IODOFORM GAUZE, THEN PLACE 4X4 AND ABD PAD OVER AND SECURE WITH TAPE. FOLLOW UP WITH DR. ECHEVARRIA IN 1 WEEK. IF ANY CHANGES PRIOR TO THAT BE SEEN AT THAT TIME. Activity as Tolerated: Yes Discharge Diet: Regular Diet Other Inst to Patient Follow up Appt: Make appointment for 1 week. Instructions: No lifting greater than 10 pounds. No strenuous activity. May shower in 24 hours, no tub bath or soaking. Use incentive spirometer at home as directed. No Smoking Skin/Wound Care: PERFORM WOUND CARE DAILY AND IF SOILED. IRRIGATE WITH SALINE THEN PACK WITH 1/2 INCH IODOFORM GAUZE, THEN PLACE 4X4 AND ABD PAD OVER AND SECURE WITH TAPE. Symptoms to Report: Appetite Changes, Extremity Discoloration, Numbness/Tingling, Swelling Increased , Bleeding Excessive, Eyesight Changes, Pain Increased, Urine Color Change, Constipation(Persistent), Fever over 101 degree F, Pain/Pressure in chest, Urinating Difficulty, Cough Up/Vomit Blood, Heart Beat Irreg/Pounding, Pain/ Pressure in jaw, Vaginal Bleeding Increase, Cramps in feet or legs, Lightheadedness, Pain/Pressure in shoulder, Diarrhea(Persistent), Memory Changes Suddenly, Questions/Concerns, Weight gain consecutive days, Dizziness/ Fainting, Nausea/Vomiting, Shortness of Breath, Weight gain over 2 pounds If questions or concerns contact your physician Or seek help at emergency department. HAILEY ECHEVARRIA DO Jul 26, 2018 13:19
[2018-07-26] MEDS ORDERED: LACTATED RINGERS 1,000 ML IV PRN (13:35)
[2018-07-26 13:40] VITALS: BP 164/93
[2018-07-26 14:10] VITALS: BP 147/79
--- NOTE | 2018-07-26 14:15 | Anesthesia-General Post-Op ---
MAC Patient Condition Mental Status/LOC: Same as Preop Cardiovascular: Satisfactory Nausea/Vomiting: Absent Respiratory: Satisfactory Pain: Controlled Complications: Absent Post Op Complications Complications None Follow Up Care/Instructions Patient Instructions None needed. Anesthesiology Discharge Order Discharge Order Patient was seen after the procedure and she was doing well, no complaints, stable vital signs, no apparent adverse anesthesia problems. HERNANDO HEAD DO Jul 26, 2018 14:15
[2018-07-26 14:40] VITALS: BP 147/79
--- NOTE | 2018-07-26 23:54 | OPERATIVE REPORT ---
DATE OF SERVICE: 07/26/2018 PREOPERATIVE DIAGNOSIS: Right buttock abscess. POSTOPERATIVE DIAGNOSIS: Right buttock abscess. PROCEDURE: Incision and drainage of right buttock abscess and debridement necrotic tissue 7.5 x 4 x 2 cm. SURGEON: Hailey León DO. ANESTHESIA: MAC with local. ESTIMATED BLOOD LOSS: Minimal. COMPLICATIONS: None. INDICATIONS: The patient is a 72-year-old female who has developed a right buttock abscess. The patient is in residential. The patient with abscess and needs procedure as noted above and risks and benefits have been discussed and family agree. Consent obtained. DESCRIPTION OF PROCEDURE: The patient was taken to the operating suite. She was placed in the right lateral recumbent position. A timeout was performed after the patient was prepped and draped in sterile fashion. Local anesthetic was infiltrated into the area of fluctuance. A 11-blade scalpel was used to make incision over the palpable area of fluctuance. Purulent material erupted and culture was obtained. A lot of necrotic tissue still present within the wound. Sharp debridement of skin and subcutaneous tissue was performed with overall area measuring 7.5 x 4 x 2 cm down to healthy bleeding tissue. The wound was irrigated with copious amounts of irrigation and then packed with quarter-inch iodoform and then 4 x 4's and ABD pad and tape. The patient tolerated the procedure well without any complications. She was taken to recovery room in stable condition. RECOMMENDATIONS: The patient will need continued wound care of irrigation and packing. It should be packed at least once per day and if soiled. 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
== END 2018-07-26 14:40 | disposition home or self-care (01) ==
LOC: SDC 07:52
PROVIDERS: ATTEND Surgery
DX: L02.31 Cutaneous abscess of buttock (principal); J44.9 Chronic obstructive pulmonary disease, unspecified; F03.90 Unspecified dementia, unspecified severity, without behavioral disturbance, psychotic disturbance, mood disturbance, and anxiety; I10 Essential (primary) hypertension; E78.5 Hyperlipidemia, unspecified; E03.9 Hypothyroidism, unspecified; K21.9 Gastro-esophageal reflux disease without esophagitis; D64.9 Anemia, unspecified; Z79.82 Long term (current) use of aspirin; Z79.899 Other long term (current) drug therapy
CPT/HCPCS: 87070; 87075; 87077; 87081; 87185; 87186; 87205

== ENCOUNTER 2018-08-27 14:00 | Inpatient (IN) | payer MEDICARE, OTHER ==
[~2018-08-27] VITALS: Ht 152.4 cm; Wt 46.9 kg
[~2018-08-27 14:00] MED LIST changes: -ASCO500T6 PO; -C250T PO; -CEFD300C3 PO; -METH1TAB PO; -MULT-166 PO; -PANT20TA3 PO
--- OUTSIDE RECORDS SUMMARY | 2018-08-27 14:05 | XMS REPORT ---
Author Author LAUREN ALMENDAREZ [facility] Address [address] [place] [address] Care Team Providers Care Material Movers Name Role Phone LAUREN ALMENDAREZ Unavailable PROBLEMS Type Condition ICD9-CM Code UCL95-LA Code Onset Dates Condition Status SNOMED Code Problem Scoliosis of cervical spine, unspecified scoliosis type M41.9 Active 518791910 Problem Adult failure to thrive R62.7 Active 491226746 Problem 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 Active 231120960 Problem Anemia of chronic disease D63.8 Active 732735740 Problem GERD with esophagitis K21.0 Active 286063246 Problem Intractable chronic post-traumatic headache G44.321 Active 552597154 Problem Slow transit constipation K59.01 Active 23422310 Problem Acquired hypothyroidism E03.9 Active 217737520 Problem 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 Active 64489508 Problem Hypokalemia E87.6 Active 58314930 ALLERGIES No Information ENCOUNTERS Encounter Location Date Diagnosis [facility] [employer] [address] [id number] Jul, Cutaneous abscess of buttock L02.31 and Scoliosis of cervical spine, unspecified scoliosis type M41.9 [place] [address] [facility] [id number] [address] Jul, [place] [address] [facility] [id number], [place] [address] Jul, [facility] [employer] [address] [id number] Jul, Cellulitis of buttock L03.317 and Cutaneous abscess of buttock L02.31 [facility] [address] [facility] [id number], [place] [address] Jul, [place] [address] [address] Jul, [facility] [address] [place] [address] Jul, GERD with esophagitis K21.0 [facility] [address], [place] [address] Jun, [facility] [address] [place] [address] Jun, Dysuria R30.0 [facility] [id number] [id number] Jun, [facility] [address] [place] [address] May, [facility] [address], [place] [address] May, [facility] [address] [place] [address] May, [facility] [employer] [address] [place] [id number] May, Chronic daily headache R51 [employer] [address] [place] [id number] Apr, Intractable chronic post-traumatic headache G44.321 and Scoliosis of cervical spine, unspecified scoliosis type M41.9 [facility] [address] [address] Apr, [facility] [address] [place] [id number] [address] Mar, Chronic daily headache R51 and Slow transit constipation K59.01 [facility] [employer] [address] [place] [id number] Mar, Chronic daily headache R51 and 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 [facility] [address] [address] Mar, Scoliosis of cervical spine, unspecified scoliosis type M41.9 [place] [address] [facility] [id number] [place] [address] Feb, Scoliosis of cervical spine, unspecified scoliosis type M41.9 [place] [address] [facility] [id number] [address] Feb, Shortness of breath R06.02 [facility] [address] [place] [id number] January, Encounter for examination for admission to [facility] Z02.2 ; Scoliosis of cervical spine, unspecified scoliosis type M41.9 ; 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 ; Adult failure to thrive R62.7 ; Hypokalemia E87.6 ; Acquired hypothyroidism E03.9 and Slow transit constipation K59.01 [place] [address] [facility] [id number] [address] January, Adult failure to thrive R62.7 ; Scoliosis of cervical spine , unspecified scoliosis type M41.9 and 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 IMMUNIZATIONS No Known Immunizations SOCIAL HISTORY Never Assessed REASON FOR VISIT Routine Visit PLAN OF CARE Activity Details Follow Up prn Reason: VITAL SIGNS MEDICATIONS Medication Instructions Dosage Frequency Start Date End Date Duration Status Promethazine HCl 25 MG Rectal every 4 hrs 1 suppository as needed 4h Active Tylenol 325 MG Orally every 4 hrs 2 tablets as needed 4h Active Mylanta 200-200-20 MG/5ML Orally every 4 hrs 30 ml as needed 4h Active Levothyroxine Sodium 88 MCG Orally Once a day 1 tablet on an empty stomach in the morning 24h Active Culturelle - as directed Active Milk of Magnesia 400 MG/5ML Orally Four times a day 5 ml as needed 6h May, Active Ferrex 150 150 MG Orally Once a day 1 capsule 24h Active Topiramate 25 MG Orally Once a day 1 tablet 24h Active Senna-Docusate Sodium 8.6-50 MG Orally twice a day 1 tablet 12h Active Acetaminophen 650 MG Rectal every 4 hrs 1 suppository as needed 4h Active Fish Oil 1000 MG Orally 3 times a day 1 capsule 8h Active Cholecalciferol 12260 UNIT 1 capsule May, 30 day(s) Active Hydrocodone-Acetaminophen 7.5-325 MG Orally 2 times a day 1 tablet 12h 20 Jul, 2018 Active Pravastatin Sodium 40 MG Orally Once a day 1 tablet 24h Active Citalopram Hydrobromide 20 MG Orally Once a day 1 tablet 24h 24 Mar, 2018 30 days Active Klor-Con M20 20 meq Orally twice a day 1 tablet with food 12h Active Amitriptyline HCl 25 MG Orally twice a day 1 tablet 12h Apr, 30 days Active RESULTS No Results PROCEDURES Procedure Date Ordered Result Body Site Minor complication (15 mins) Jul 30, 2018 INSTRUCTIONS MEDICATIONS ADMINISTERED No Known Medications MEDICAL (GENERAL) HISTORY Type Description Date Surgical History right femur fx 03/2018 Hospitalization History UTI, scoliosis-[facility] 01/2018 Hospitalization History Right hip surgery-[facility] 04/2018
--- OUTSIDE RECORDS SUMMARY | 2018-08-27 14:09 | XMS REPORT | Continuity of Care Document ---
Author Author [facility] Organization [facility] Address Unknown Phone Unavailable Allergies Active Description [...] HYPOXEMIA 01/20/2018 BARBARA TUCKER MD Ot Z79.51 MOTH EXTERMINATOR (CURRENT) USE OF INHALED STERO 01/20/2018 BARBARA [...] 01/29/2018 ELPIDIO DO, ESTELLE K Ot Z79.82 PRISON (CURRENT) USE OF ASPIRIN 01/29/2018 ELPIDIO DO ESTELLE K Ot Z85.038 PERSONAL HISTORY OF MALIGNANT NEOPLASM O 01/29/2018 ELPIDIO DO ESTELLE K Ot Z87.828 PERSONAL HISTORY OF OTH (HEALED) PHYSICA 01/29/2018 ELPIDIO DO, ESTELLE K Ot Z90.49 ACQUIRED ABSENCE OF OTHER SPECIFIED PART 01/29/2018 [facility] ESTELLE K Ot Z92.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 CHEMO 01/29/2018 [facility], ESTELLE K Ot Z92.3 PERSONAL HISTORY OF IRRADIATION 01/31/2018 ELPIDIO DO, ESTELLE K Ot E03.9 HYPOTHYROIDISM, UNSPECIFIED 01/31/2018 ELPIDIO DO, ESTELLE K Ot E78.00 PURE HYPERCHOLESTEROLEMIA, UNSPECIFIED 01/31/2018 ELPIDIO DO, ESTELLE K Ot E86.0 DEHYDRATION 01/31/2018 ELPIDIO DO, ESTELLE K Ot F03.90 UNSPECIFIED DEMENTIA WITHOUT BEHAVIORAL 01/31/2018 [place] DO ESTELLE K Ot I10 ESSENTIAL (PRIMARY) HYPERTENSION 01/31/2018 ELPIDIO DO, ESTELLE K Ot N39.0 URINARY TRACT INFECTION, SITE NOT SPECIF 01/31/2018 ELPIDIO DO, ESTELLE K Ot R09.02 HYPOXEMIA 01/31/2018 ELPIDIO DO, ESTELLE K Ot R50.9 FEVER, UNSPECIFIED 01/31/2018 ELPIDIO DO, ESTELLE K Ot R62.7 ADULT FAILURE TO THRIVE 01/31/2018 ELPIDIO DO, ESTELLE K Ot Z66 DO NOT RESUSCITATE 01/31/2018 ELPIDIO DO, ESTELLE K Ot Z79.82 PRISON (CURRENT) USE OF ASPIRIN 01/31/2018 ELPIDIOESTELLE Cowart DO Ot Z85.038 PERSONAL HISTORY OF MALIGNANT NEOPLASM [...] Ot M41.9 SCOLIOSIS, UNSPECIFIED 04/19/2018 HEBERT BRADY MD, Ot N39.0 URINARY TRACT INFECTION, SITE NOT SPECIF 04/19/2018 HEBERT BRADY MD Ot S72.351A DISPLACED COMMINUTED FRACTURE OF SHAFT O 04/19/2018 HEBERT BRADY MD, Ot W19.XXXA UNSPECIFIED FALL, INITIAL ENCOUNTER 04/19/2018 HEBERT BRADY MD, Ot Y92.[address] IN HALF-WAY PLACE 04/19/2018 HEBERT BRADY MD, Ot Z79.82 MOTH EXTERMINATOR (CURRENT) USE OF ASPIRIN 04/19/2018 HEBERT BRADY MD, Ot Z85.038 PERSONAL HISTORY OF MALIGNANT NEOPLASM O 04/19/2018 HEBERT BRADY MD, Ot Z92.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 CHEMO 04/23/2018 HEBERT BRADY MD, Ot B95.2 ENTEROCOCCUS THE CAUSE OF DISEASES CL 04/23/2018 HEBERT BRADY MD, Ot B95.4 OTH STREPTOCOCCUS THE CAUSE OF DISEAS 04/23/2018 HEBERT BRADY MD Ot D50.9 IRON DEFICIENCY ANEMIA, UNSPECIFIED 04/23/2018 [...] Ot M41.9 SCOLIOSIS, UNSPECIFIED 04/23/2018 HEBERT BRADY MD Ot N39.0 URINARY TRACT INFECTION, SITE NOT SPECIF 04/23/2018 HEBERT BRADY MD Ot R11.2 NAUSEA WITH VOMITING, UNSPECIFIED 04/23/2018 HEBERT BRADY MD Ot R15.9 FULL INCONTINENCE OF FECES 04/23/2018 HEBERT BRADY MD Ot R33.9 RETENTION OF URINE, UNSPECIFIED 04/23/2018 HEBERT BRADY MD Ot S72.351A DISPLACED COMMINUTED FRACTURE OF SHAFT O 04/23/2018 HEBERT BRADY MD Ot W19.XXXA UNSPECIFIED FALL, INITIAL ENCOUNTER 04/23/2018 HEBERT BRADY MD Ot Y92.[address] IN HALF-WAY PLACE 04/23/2018 HEBERT BRADY MD, Ot Z79.82 PRISON (CURRENT) USE OF ASPIRIN 04/23/2018 HEBERT BRADY MD Ot Z85.038 PERSONAL HISTORY OF MALIGNANT NEOPLASM O 04/23/2018 HEBERT BRADY MD, Ot Z92.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 CHEMO 07/26/2018 BENEDICT KAN Ot 153.4 MALIGNANT NEOPLASM CECUM 07/26/2018 BENEDICT KAN Ot 518.89 OTHER DISEASES OF LUNG, NEC 07/26/2018 LUCIUS, BOBAN N Ot 585.3 CHRONIC KIDNEY DISEASE, STAGE III (MODER 07/26/2018 LUCIUS, BOBAN N Ot 715.90 OSTEOARTHROS NOS-UNSPEC 07/26/2018 LUCIUS, BOBAN N Ot 737.30 IDIOPATHIC SCOLIOSIS 07/26/2018 LUCIUS, BOBAN N Ot V45.72 ACQRD ABSENCE INTESTINE - LARGE/SMALL 07/26/2018 LUCIUS, BOBAN N Ot V58.69 OTH MED,LT,CURRENT USE 07/26/2018 LUCIUS, BOBAN N Ot 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 07/26/2018 LUCIUS, BOBAN N Ot 153.4 MALIGNANT NEOPLASM CECUM 07/26/2018 LUCIUS, BOBAN N Ot 518.89 OTHER DISEASES OF LUNG, NEC 07/26/2018 LUCIUS, BOBAN N Ot 585.3 CHRONIC KIDNEY DISEASE, STAGE III (MODER 07/26/2018 LUCIUS, BOBAN N Ot 715.90 OSTEOARTHROS NOS-UNSPEC 07/26/2018 LUCIUS, BOBAN N Ot 737.30 IDIOPATHIC SCOLIOSIS 07/26/2018 LUCIUS, BOBAN N Ot V45.72 ACQRD ABSENCE INTESTINE - LARGE/SMALL 07/26/2018 LUCIUS, BOBAN N Ot V58.69 OTH MED,LT,CURRENT USE 07/26/2018 LUCIUS, BOBAN N Ot 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 07/26/2018 LUCIUS, BOBAN N Ot 518.89 OTHER DISEASES OF LUNG, NEC 07/26/2018 LUCIUS, BOBAN N Ot 585.3 CHRONIC KIDNEY DISEASE, STAGE III (MODER 07/26/2018 LUCIUS, BOBAN N Ot 682.4 CELLULITIS OF HAND 07/26/2018 LUCIUS, BOBAN N Ot 715.90 OSTEOARTHROS NOS-UNSPEC 07/26/2018 LUCIUS, BOBAN N Ot 733.00 OSTEOPOROSIS NOS 07/26/2018 LUCIUS, BOBAN N Ot 737.30 IDIOPATHIC SCOLIOSIS 07/26/2018 LUCIUS, BOBAN N Ot V10.05 HX OF COLONIC MALIGNANCY 07/26/2018 LUCIUS, BOBAN N Ot V58.69 OTH MED,LT,CURRENT USE 07/26/2018 LUCIUS, BOBAN N Ot V67.2 CHEMOTHERAPY FOLLOW-UP 07/26/2018 HAILEY ECHEVARRIA DO Ot D64.9 ANEMIA, UNSPECIFIED 07/26/2018 ECHEVARRIA DO, HAILEY D Ot E03.9 HYPOTHYROIDISM, UNSPECIFIED 07/26/2018 ECHEVARRIA DO, HAILEY D Ot E78.5 HYPERLIPIDEMIA, UNSPECIFIED 07/26/2018 ECHEVARRIA DO, HAILEY D Ot F03.90 UNSPECIFIED DEMENTIA WITHOUT BEHAVIORAL 07/26/2018 ECHEVARRIA DO, HAILEY D Ot I10 ESSENTIAL (PRIMARY) HYPERTENSION 07/26/2018 ECHEVARRIA DO, HAILEY D Ot J44.9 CHRONIC OBSTRUCTIVE PULMONARY DISEASE, U 07/26/2018 ECHEVARRIA DO, HAILEY D Ot K21.9 GASTRO-ESOPHAGEAL REFLUX DISEASE WITHOUT 07/26/2018 ECHEVARRIA DO, HAILEY D Ot L02.31 CUTANEOUS ABSCESS OF BUTTOCK 07/26/2018 ECHEVARRIA DO, HAILEY D Ot Z79.82 PRISON (CURRENT) USE OF ASPIRIN 07/26/2018 ECHEVARRIA DO, HAILEY D Ot Z79.899 OTHER PRISON (CURRENT) DRUG THERAPY 07/30/2018 ECHEVARRIA DO, HAILEY D Ot D64.9 ANEMIA, UNSPECIFIED 07/30/2018 ECHEVARRIA DO, HAILEY D Ot E03.9 HYPOTHYROIDISM, UNSPECIFIED 07/30/2018 ECHEVARRIA DO, HAILEY D Ot E78.5 HYPERLIPIDEMIA, UNSPECIFIED 07/30/2018 ECHEVARRIA DO, HAILEY D Ot F03.90 UNSPECIFIED DEMENTIA WITHOUT BEHAVIORAL 07/30/2018 ECHEVARRIA DO, HAILEY D Ot I10 ESSENTIAL (PRIMARY) HYPERTENSION 07/30/2018 ECHEVARRIA DO, HAILEY D Ot J44.9 CHRONIC OBSTRUCTIVE PULMONARY DISEASE, U 07/30/2018 ECHEVARRIA DO, HAILEY D Ot K21.9 GASTRO-ESOPHAGEAL REFLUX DISEASE WITHOUT 07/30/2018 ECHEVARRIA DO, HAILEY D Ot L02.31 CUTANEOUS ABSCESS OF BUTTOCK 07/30/2018 ECHEVARRIA DO, HAILEY D Ot Z79.82 MOTH EXTERMINATOR (CURRENT) USE OF ASPIRIN 07/30/2018 ECHEVARRIA DO, HAILEY D Ot Z79.899 OTHER PRISON (CURRENT) DRUG THERAPY 07/31/2018 ECHEVARRIA DO, HAILEY D Ot D64.9 ANEMIA, UNSPECIFIED 07/31/2018 ECHEVARRIA DO, HAILEY D Ot E03.9 HYPOTHYROIDISM, UNSPECIFIED 07/31/2018 ECHEVARRIA DO, HAILEY D Ot E78.5 HYPERLIPIDEMIA, UNSPECIFIED 07/31/2018 ECHEVARRIA DO, HAILEY D Ot F03.90 UNSPECIFIED DEMENTIA WITHOUT BEHAVIORAL 07/31/2018 ECHEVARRIA HAILEY SUMMERS Ot I10 ESSENTIAL (PRIMARY) HYPERTENSION 07/31/2018 HAILEY ECHEVARRIA DO Ot J44.9 CHRONIC OBSTRUCTIVE PULMONARY DISEASE, U 07/31/2018 HAILEY ECHEVARRIA DO Ot K21.9 GASTRO-ESOPHAGEAL REFLUX DISEASE WITHOUT 07/31/2018 HAILEY ECHEVARRIA DO Ot L02.31 CUTANEOUS ABSCESS OF BUTTOCK 07/31/2018 ECHEVARRIA HAILEY SUMMERS Ot Z79.82 MOTH EXTERMINATOR (CURRENT) USE OF ASPIRIN [facility] OTHER MOTH EXTERMINATOR (CURRENT) DRUG THERAPY Procedures Code Description Performed By Performed On [id number] REPOSITION RIGHT FEMORAL SHAFT WITH INT 04/17/2018 [id number] SUPPLEMENT RIGHT FEMORAL SHAFT WITH AUTO 04/17/2018 [...] culture - 01/12/18 13:35 Bacterial urine culture [id number] NRG COLONY COUNT 10,000/ML - 100,000/ML NRG FTX;REPORTABLE SENSITIVITY REPORTED 5/13 15:20 NRG FREE TEXT ENTRY 3 MIXED [...] - 01/20/18 08:55 Bacterial blood culture NG NR Complete urinalysis with reflex to culture - [...] Blood erythrocyte morphology finding identification NORMAL NRG Blood lactic acid measurement (moles/volume) - 01/29/18 [...] 01/29/18 00:40 Bacterial blood culture NG NRG Methicillin resistant Staphylococcus aureus (MRSA) screening culture - 10:30 Methicillin resistant Staphylococcus aureus (MRSA) screening culture NEG NRG Bacteria identification in isolate by anaerobe culture - 07/26/18 12:47 FREE TEXT EXTERNAL BETA LACTAMASE POSITIVE NRG QUANTITY OF GROWTH Isolated NRG Bacteria identification in isolate by anaerobe culture [id number] NR FREE TEXT EXTERNAL 2 SEE COMMENTS NRG Gram stain microscopy - 07/26/18 12:47 Gram stain microscopy Many Gram positive cocci in clusters NRG Bacteria identification in wound by culture - 11/23/18 12:47 Bacteria identification in wound by culture MBF NRG FREE TEXT EXTERNAL LARGE AMOUNT NRG QUANTITY OF GROWTH . NRG FREE TEXT ENTRY 2 RML REPORTED ID 07/27 12:05 NRG RML Sensitivity Panel - 07/26/18 12:47 Oxacillin susceptibility test by minimum inhibitory concentration R NRG Clindamycin susceptibility test by minimum inhibitory concentration <= NRG Erythromycin susceptibility test by minimum inhibitory concentration > NRG Trimethoprim/sulfamethoxazole susceptibility test by minimum inhibitoryconcentration S NRG Vancomycin susceptibility test by minimum inhibitory concentration 1 NRG Levofloxacin susceptibility test by minimum inhibitory concentration > NRG Rifampin susceptibility test by minimum inhibitory concentration <= NRG Cefazolin susceptibility test by minimum inhibitory concentration > NRG Linezolid susceptibility test by minimum inhibitory concentration 2 NRG Penicillin G susceptibility test by minimum inhibitory concentration > NRG Minocycline susc KENYON <= NRG Encounters ACCT No. Visit Date/Time Discharge Status Pt. Type Provider Facility Loc./Unit Complaint [id number] 07/26/2018 07:52:00 07/26/2018 14:40:00 DIS Outpatient HAILEY ECHEVARRIA DO [facility] ABSCESS LEFT BUTTOCKS [id number] 07/24/2018 18:54:00 07/24/2018 23:59:59 CLS Preadmit HAILEY ECHEVARRIA DO [facility] ABCESS OF BUTTOCKS [id number] 04/16/2018 10:14:00 04/23/2018 14:00:00 DIS Inpatient HEBERT BRADY MD [facility] 4TH RT FEMUR FX,WEAKNESS [id number] 01/29/2018 00:16:00 01/29/2018 02:30:00 DIS Emergency ESTELLE MAGALLANES DO [facility] ER FEVER,RESP DISTRESS [id number] 01/20/2018 08:16:00 01/20/2018 11:59:00 DIS Emergency BARBARA TUCKER MD [facility] ER SHORTNESS OF AIR [id number] 01/12/2018 16:00:00 01/15/2018 14:50:00 DIS Inpatient KODAK GOULD MD [facility] 4TH L PYLEO [id number] 02/21/2016 13:08:00 02/21/2016 23:59:59 CLS Preadmit ESTRADA DIAN Sebas NOE [facility] ONC [id number] 02/16/2015 13:12:00 02/16/2015 23:59:59 CLS Outpatient BENEDICT KAN [facility] ONC [id number] 02/19/2014 13:51:00 02/19/2014 23:59:59 CLS Outpatient BENEDICT KAN [facility] ONC [id number] 02/13/2013 09:26:00 02/13/2013 23:59:59 CLS Outpatient BENEDICT KAN [facility] ONC [id number] 08/12/2012 13:09:00 Document Registration
[2018-08-27 14:30] LABS: BASOPHILS % (AUTO) 0 % (0-10); EOSINOPHILS % (AUTO) 0 % (0-10); HEMATOCRIT 33 % (35-52); HEMOGLOBIN 8.7 G/DL (11.5-16.0); LYMPHOCYTES # (AUTO) 0.4 X 10^3 (1.0-4.0); LYMPHOCYTES % (AUTO) 7 % (12-44); MEAN CORPUSCULAR HEMOGLOBIN 32 PG (25-34); MEAN CORPUSCULAR HGB CONC 27 G/DL (32-36); MEAN CORPUSCULAR VOLUME 120 FL (80-99); MEAN PLATELET VOLUME 8.9 FL (7.4-10.4); MONOCYTES # (AUTO) 0.6 X 10^3 (0.0-1.0); MONOCYTES % (AUTO) 10 % (0-12); NEUTROPHILS % (AUTO) 83 % (42-75); PLATELET COUNT 201 10^3/uL (130-400); RED BLOOD COUNT 2.74 10^6/uL (4.35-5.85); RED CELL DISTRIBUTION WIDTH 13.2 % (10.0-14.5)
[2018-08-27 14:47] LABS: BILIRUBIN,URINE NEGATIVE (NEGATIVE); CLARITY,URINE SLIGHTLY CLOUDY; COLOR,URINE YELLOW; GLUCOSE, URINE (UA) NEGATIVE (NEGATIVE); KETONES,URINE 4+ (NEGATIVE); LEUKOCYTE ESTERASE ,URINE 3+ (NEGATIVE); NITRITE,URINE POSITIVE (NEGATIVE); PH,URINE 6 (5-9); PROTEIN,URINE 3+ (NEGATIVE); UROBILINOGEN,URINE NORMAL (NORMAL)
[2018-08-27 14:49] LABS: ALANINE AMINOTRANSFERASE 11 U/L (0-55); ALBUMIN 3.3 GM/DL (3.2-4.5); ALKALINE PHOSPHATASE 85 U/L (40-136); BILIRUBIN,TOTAL 0.3 MG/DL (0.1-1.0); BUN/CREATININE RATIO 74; CALCIUM 10.2 MG/DL (8.5-10.1); CARBON DIOXIDE 37 MMOL/L (21-32); CHLORIDE 96 MMOL/L (98-107); CREATININE SERUM 0.65 MG/DL (0.60-1.30); GFR ESTIMATED > 60; GLUCOSE 153 MG/DL (70-105); POTASSIUM 4.2 MMOL/L (3.6-5.0); SODIUM 146 MMOL/L (135-145); TOTAL PROTEIN 6.6 GM/DL (6.4-8.2)
[2018-08-27 14:55] LABS: RBC,URINE 25-50 /HPF
[2018-08-27 14:56] LABS: BACTERIA,URINE LARGE /HPF; WBC,URINE TNTC /HPF
[2018-08-27 15:01] LABS: BAND NEUTROPHILS 6 %; LYMPHOCYTES % (MANUAL) 5 %; MONOCYTES % (MANUAL) 8 %; NEUTROPHILS % (MANUAL) 81 %; STOMATOCYTES MODERATE
--- NOTE | 2018-08-27 15:12 | ED General ---
General Chief Complaint: Neurological Problems Stated Complaint: CONFUSION Source of Information: Patient Exam Limitations: No Limitations History of Present Illness Date Seen by Provider: Aug 27, 2018 Time Seen by Provider: 15:09 Initial Comments To ER with reports of confusion that is increased from her normal daily confusion. She arrives per EMS from [facility]. Timing/Duration: 1-2 Days Severity: Moderate Allergies and Home Medications Allergies Coded Allergies: NKANo Known Allergies (Verified Allergy, Unknown, 01/12/18) Home Medications Acetaminophen 325 Mg Tablet, 650 MG PO Q4H PRN for PAIN-MILD, (Reported) TAKES 2 (325MG) TABLETS Acetaminophen 650 Mg Supp.rect, 650 MG RC Q4H PRN for PAIN-MILD OR TEMPATURE, ( Reported) Albuterol Sulfate 1 Puff Puff, 2 PUFF IN Q4H PRN for SHORTNESS OF BREATH, ( Reported) Aspirin 81 Mg Tablet.dr, 81 MG PO DAILY, (Reported) Calcium Carbonate/Vitamin D3 1 Each Tablet, 1 TAB PO BID, (Reported) Cefdinir 300 Mg Capsule, 300 MG PO BID Prescribed by: LAURIE CINTRON on 08/27/18 1633 Cholecalciferol (Vitamin D3) 5,000 Unit Capsule, 5,000 UNIT PO DAILY, (Reported) Citalopram Hydrobromide 20 Mg Tablet, 20 MG PO DAILY, (Reported) Hydrocodone/Acetaminophen 1 Each Tablet, 1 TAB PO TID Prescribed by: MORTEZA SNEED on 04/23/18 0941 Iron Polysaccharide Complex 150 Mg Capsule, 150 MG PO DAILY, (Reported) Levothyroxine Sodium 88 Mcg Tablet, 88 MCG PO 0600, (Reported) Mag Hydrox/Al Hydrox/Simeth 30 Ml Oral.susp, 30 ML PO Q4H PRN for INDIGESTION, ( Reported) Magnesium Hydroxide 400 Mg/5 Ml Oral.susp, 30 ML PO DAILY PRN for CONSTIPATION- 7TH LINE, (Reported) [place] 3 Polyunsat Fatty Acids 1,000 Mg Cap, 1,000 MG PO TID, (Reported) Pantoprazole Sodium 40 Mg Tablet.dr, 40 MG PO 0600, (Reported) Potassium Chloride 20 Meq Tab.er.prt, 20 MEQ PO BID, (Reported) Pravastatin Sodium 40 Mg Tablet, 40 MG PO HS, (Reported) Promethazine HCl 25 Mg Supp.rect, 25 MG RC Q4H PRN for NAUSEA/VOMITING-2ND LINE, (Reported) Sennosides/Docusate Sodium 1 Each Tablet, 2 TAB PO BID, (Reported) Sulfamethoxazole/Trimethoprim 1 Each Tablet, 1 EACH PO BID Prescribed by: HAILEY ECHEVARRIA on 07/26/18 1313 Topiramate 25 Mg Tablet, 25 MG PO DAILY, (Reported) Patient Home Medication List Home Medication List Reviewed: Yes Review of Systems Review of Systems Constitutional: see HPI EENTM: see HPI Respiratory: no symptoms reported Cardiovascular: no symptoms reported Genitourinary: no symptoms reported Musculoskeletal: no symptoms reported Skin: no symptoms reported Psychiatric/Neurological: No Symptoms Reported Hematologic/Lymphatic: No Symptoms Reported Past Bhdqihe-Izecto-Xrvuox Hx Patient Social History Alcohol Use: Denies Use Recreational Drug Use: No 2nd Hand Smoke Exposure: No Recent Hopitalizations: No Immunizations Up To Date Tetanus Booster (TDap): Unknown Date of Pneumonia Vaccine: Jun 03, 2017 Seasonal Allergies Seasonal Allergies: No Past Medical History Surgeries: Yes (COLON RESECTION FOR CANCER; RODS IN BACK/REMOVED; HYST/BSO) Abdominal, Bowel Surgery, Hysterectomy, Oophorectomy, Orthopedic Respiratory: Yes COPD Cardiac: Yes High Cholesterol, Hypertension Neurological: Yes Dementia 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) Female Reproductive Disorders: Denies Sexually Transmitted Disease: No HIV/AIDS: No Genitourinary: Yes (URINARY RETENTION) UTI-Chronic Gastrointestinal: Yes (COLON CANCER) Musculoskeletal: Yes (SEVERE SCOLIOSIS) Back Injury, Scoliosis, Chronic Back Pain, Contracture Endocrine: Yes Hypothyroidsim HEENT: No Cancer: Yes Colon Did You Recieve Any Treatments: Yes What Type of Treatment Did You: Chemotherapy, Surgical Intervention Psychosocial: No Integumentary: No Blood Disorders: Yes (ANEMIA) Family Medical History Her records as patient is poor historian Physical Exam Vital Signs Vital Signs - First Documented 08/27/18 14:00 Temp 96.4 Pulse 98 Resp 26 B/P (MAP) 125/86 (99) Pulse Ox 100 O2 Delivery Nasal Cannula O2 Flow Rate 3.00 Capillary Refill : Height, Weight, BMI Height: 5'0.00" Weight: 95lbs. 0.0oz. 43.792040nn; 18.6 BMI Method:Estimated General Appearance: No Apparent Distress, WD/WN Eyes: Bilateral Eye Normal Inspection, Bilateral Eye PERRL, Bilateral Eye EOMI HEENT: PERRL/EOMI, TMs Normal Neck: Other (significant kyphosis of the upper thoracic spine with the neck flexed forward laying on the chest and tilted to the right) Respiratory: No Accessory Muscle Use, No Respiratory Distress Gastrointestinal: Normal Bowel Sounds, Non Tender, Soft Extremity: Normal Capillary Refill, Normal Inspection Neurologic/Psychiatric: Alert Skin: Normal Color, Warm/Dry Focused Exam Lactate Level 08/27/18 15:50: Lactic Acid Level 0.30L Lactic Acid Level Laboratory Tests Test 08/27/18 15:50 Lactic Acid Level 0.30 MMOL/L (0.50-2.00) L Progress/Results/Core Measures Suspected Sepsis SIRS Temperature: Pulse: Respiratory Rate: Laboratory Tests 08/27/18 14:20: White Blood Count 6.0 Blood Pressure / Mean: 08/27/18 15:50: Lactic Acid Level 0.30L Laboratory Tests 08/27/18 14:20: Creatinine 0.65, Platelet Count 201, Total Bilirubin 0.3 Results/Orders Lab Results Laboratory Tests Test 08/27/18 14:20 08/27/18 14:39 08/27/18 15:50 Range/Units White Blood Count 6.0 4.3-11.0 10^3/uL Red Blood Count 2.74 L 4.35-5.85 10^6/uL Hemoglobin 8.7 L 11.5-16.0 G/DL Hematocrit 33 L 35-52 % Mean Corpuscular Volume 120 H 80-99 FL Mean Corpuscular Hemoglobin 32 25-34 PG Mean Corpuscular Hemoglobin Concent 27 L 32-36 G/DL Red Cell Distribution Width 13.2 10.0-14.5 % Platelet Count 201 130-400 10^3/uL Mean Platelet Volume 8.9 7.4-10.4 FL Neutrophils (%) (Auto) 83 H 42-75 % Lymphocytes (%) (Auto) 7 L 12-44 % Monocytes (%) (Auto) 10 0-12 % Eosinophils (%) (Auto) 0 0-10 % Basophils (%) (Auto) 0 0-10 % Neutrophils # (Auto) 5.0 1.8-7.8 X 10^3 Lymphocytes # (Auto) 0.4 L 1.0-4.0 X 10^3 Monocytes # (Auto) 0.6 0.0-1.0 X 10^3 Eosinophils # (Auto) 0.0 0.0-0.3 10^3/uL Basophils # (Auto) 0.0 0.0-0.1 10^3/uL Neutrophils % (Manual) 81 % Lymphocytes % (Manual) 5 % Monocytes % (Manual) 8 % Band Neutrophils 6 % Macrocytosis SLIGHT Stomatocytes MODERATE Sodium Level 146 H 135-145 MMOL/L Potassium Level 4.2 3.6-5.0 MMOL/L Chloride Level 96 L 98-107 MMOL/L Carbon Dioxide Level 37 H 21-32 MMOL/L Anion Gap 13 5-14 MMOL/L Blood Urea Nitrogen 48 H 7-18 MG/DL Creatinine 0.65 0.60-1.30 MG/DL Estimat Glomerular Filtration Rate > 60 BUN/Creatinine Ratio 74 Glucose Level 153 H 70-105 MG/DL Calcium Level 10.2 H 8.5-10.1 MG/DL Corrected Calcium 10.8 H 8.5-10.1 MG/DL Total Bilirubin 0.3 0.1-1.0 MG/DL Aspartate Amino Transf (AST/SGOT) 15 5-34 U/L Alanine Aminotransferase (ALT/SGPT) 11 0-55 U/L Alkaline Phosphatase 85 40-136 U/L Total Protein 6.6 6.4-8.2 GM/DL Albumin 3.3 3.2-4.5 GM/DL Urine Color YELLOW Urine Clarity SLIGHTLY CLOUDY Urine pH 6 5-9 Urine Specific [place] 1.020 1.016-1.022 Urine Protein 3+ H NEGATIVE Urine Glucose (UA) NEGATIVE NEGATIVE Urine Ketones 4+ H NEGATIVE Urine Nitrite POSITIVE H NEGATIVE Urine Bilirubin NEGATIVE NEGATIVE Urine Urobilinogen NORMAL NORMAL MG/DL Urine Leukocyte Esterase 3+ H NEGATIVE Urine RBC (Auto) 5+ H NEGATIVE Urine RBC 25-50 H /HPF Urine WBC TNTC H /HPF Urine Squamous Epithelial Cells 2-5 /HPF Urine Crystals NONE /LPF Urine Bacteria LARGE H /HPF Urine Casts NONE /LPF Urine Mucus NEGATIVE /LPF Urine Culture Indicated YES Lactic Acid Level 0.30 L 0.50-2.00 MMOL/L My Orders Orders - LAURIE CINTRON FRONT DESK Cbc With Automated Diff (08/27/18 14:11) Comprehensive Metabolic Panel (08/27/18 14:11) Ct Head Wo (08/27/18 14:11) Chest 1 View, Ap/Pa Only (08/27/18 14:11) Iv Heplock-Insert (Order) (08/27/18 14:11) Ua Culture If Indicated (08/27/18 14:11) Manual Differential (08/27/18 14:20) Urine Culture (08/27/18 14:39) Ceftriaxone For Iv Use (Rocephin For I (08/27/18 15:15) Ns Iv 1000 Ml (Sodium Chloride 0.9%) (08/27/18 15:15) Lactic Acid Analyzer (08/27/18 15:21) Blood Culture (08/27/18 15:21) Medications Given in ED Current Medications Medications Dose Ordered Sig/Christopher Route Start Time Stop Time Status Last Admin Dose Admin Ceftriaxone Sodium 1000 mg/ Sodium Chloride 50 ml @ 100 mls/hr ONCE ONCE IV 08/27/18 15:15 08/27/18 15:44 DC 08/27/18 16:14 100 MLS/HR Vital Signs/I&O 08/27/18 14:00 Temp 96.4 Pulse 98 Resp 26 B/P (MAP) 125/86 (99) Pulse Ox 100 O2 Delivery Nasal Cannula O2 Flow Rate 3.00 Capillary Refill : Diagnostic Imaging Diagonstic Imaging: Xray Plain Films/CT/US/NM/MRI: chest Comments NAME: [facility]ERA [facility] REC#: [id number] PT STATUS: REG ER : 1945 PHYSICIAN: LAURIE CINTRON APRN ADMIT DATE: 08/27/18/ER Draft Date of Exam:08/27/18 CHEST 1 VIEW, AP/PA ONLY EXAM: Portable semi-erect AP chest at at 2:45 p.m. INDICATION: Confusion. FINDINGS: This exam is less than optimal as the patient is severely rotated. Allowing for this technical factor, the heart is enlarged but stable when compared to the prior exam of 04/19/2018. As seen on the prior exam, the right lung base is obscured by atelectasis/infiltrate and fluid. There also now appear to be patchy areas of pneumonia/atelectasis in the left midlung. The lung apices are clear. The mediastinum is not widened. The severe dextroscoliosis of the thoracic spine seen previously is again evident and no different. IMPRESSION: There is persistent obscuration of the right lung base by atelectasis/infiltrate and fluid. There also appear to be new patchy areas of pneumonia/atelectasis in the left midlung. Clinical follow up is recommended. Dictated on workstation # [id number] Dict: 08/27/18 1508 Trans: 08/27/18 1513 [facility] [id number] Interpreted by: ALANA PHOENIX MD Electronically signed by: Departure Communication (Admissions) Time/Spoke to Admitting Phy: 17:24 I was going to discharge the patient as she was alert upon arrival to ER. However, at the time of discharge she has her eyes open but does not communicate verbally. Her vitals are stable with a blood pressure 116 over 70s. We will admit the patient for IV antibiotics, fluids and see how she does. She was admitted here earlier this year and discharged home on [facility] but she seemed to perk up so that was revoked and the [place] [facility] has full CODE STATUS paperwork at their facility. However, I discussed with patient's Sister Ilda and niece over the telephone, both of whom agreed she "would not want her ribs cracked" and as such should be DO NOT RESUSCITATE status. I completely agree with this as CPR is unlikely to be effective should it be necessary. Impression Primary Impression: Urinary tract infection Additional Impressions: Left lower lobe pneumonia Qualified Codes: J18.1 - Lobar pneumonia, unspecified organism Unresponsiveness Disposition: ADMITTED INPATIENT Condition: Stable Admissions Decision to Admit Reason: Admit from ER (General) Decision to Admit/Date: Aug 27, 2018 Time/Decision to Admit Time: 17:26 Departure-Patient Inst. Referrals: SUSAN ZARATE MD (PCP/Family) Primary Care Physician Scripts Cefdinir (Cefdinir) 300 Mg Capsule 300 MG PO BID, #10 CAP Prov: LAURIE CINTRON FRONT DESK 08/27/18 LAURIE CINTRON APRN Aug 27, 2018 15:12
[2018-08-27] MEDS ORDERED: cefTRIAXone FOR IV USE 1,000 MG in NS (IVPB) 50 ML IV ONE (15:15)
[2018-08-27] MEDS ORDERED: NS IV 1000 ML 1,000 ML IV SCH (15:15)
[2018-08-27] MEDS ORDERED: CEFD300C3 PO (16:33)
--- NOTE | 2018-08-27 16:40 | Diagnostic Imaging Report ---
CLINICAL INDICATION: Patient from [facility] and confused today. EXAM: Axial CT scan of the brain performed without IV contrast. Coronal and sagittal sequences were attempted. COMPARISON: Head CT without contrast due 10/09/2008. FINDINGS: Motion artifact and patient cervical spine deformity limit evaluation of the brain parenchyma. There is also significant streak artifact greatly obscuring the brain parenchyma. There is no gross evidence of brain herniation, hydrocephalus, or midline shift. There is slight progression of brain parenchymal volume loss. There is no gross evidence of intracranial hemorrhage or large area of cerebral edema. The extracranial soft tissue, skull, and orbits are grossly unremarkable. IMPRESSION: Greatly limited exam due to patient positioning and skull streak artifact. There is no gross evidence of acute intracranial process. Dictated by: Dictated on workstation # [id number]
--- OUTSIDE RECORDS SUMMARY | 2018-08-27 18:24 | XMS REPORT | Continuity of Care Document ---
Author Author [facility] Organization [facility] Address Unknown Phone Unavailable Allergies Active Description [...] HYPOXEMIA 01/20/2018 BARBARA TUCKER MD Ot Z79.51 COST RECORDER (CURRENT) USE OF INHALED STERO 01/20/2018 BARBARA [...] 01/29/2018 ELPIDIO DO, ESTELLE K Ot Z79.82 [facility] (CURRENT) USE OF ASPIRIN 01/29/2018 ELPIDIO DO ESTELLE K Ot Z85.038 PERSONAL HISTORY OF MALIGNANT NEOPLASM O 01/29/2018 ELPIDIO DO ESTELLE K Ot Z87.828 PERSONAL HISTORY OF OTH (HEALED) PHYSICA 01/29/2018 ELPIDIO DO, ESTELLE K Ot Z90.49 ACQUIRED ABSENCE OF OTHER SPECIFIED PART 01/29/2018 [facility] ESTELLE K Ot Z92.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 CHEMO 01/29/2018 [facility], ESTELLE K Ot Z92.3 PERSONAL HISTORY OF IRRADIATION 01/31/2018 ELPIDIO DO, ESTELLE K Ot E03.9 HYPOTHYROIDISM, UNSPECIFIED 01/31/2018 ELPIDIO DO, ESTELLE K Ot E78.00 PURE HYPERCHOLESTEROLEMIA, UNSPECIFIED 01/31/2018 ELPIDIO DO, ESTELLE K Ot E86.0 DEHYDRATION 01/31/2018 ELPIDIO DO, ESTELLE K Ot F03.90 UNSPECIFIED DEMENTIA WITHOUT BEHAVIORAL 01/31/2018 [facility] DO SETELLE K Ot I10 ESSENTIAL (PRIMARY) HYPERTENSION 01/31/2018 [...] 01/31/2018 ELPIDIO DO, ESTELLE K Ot Z79.82 [facility] (CURRENT) USE OF ASPIRIN 01/31/2018 ELPIDIOESTELLE Cowart [...] BRADY MD, Ot Y92.[address] [facility] 04/19/2018 HEBERT BRADY MD, Ot Z79.82 COST RECORDER (CURRENT) USE OF ASPIRIN 04/19/2018 HEBERT BRADY [...] BRADY MD Ot Y92.[address] [facility] 04/23/2018 HEBERT BRADY MD, Ot Z79.82 [facility] (CURRENT) USE OF ASPIRIN 04/23/2018 HEBERT BRADY [...] Ot D64.9 ANEMIA, UNSPECIFIED 07/26/2018 ECHEVARRIA DO, HAIELY D Ot E03.9 HYPOTHYROIDISM, UNSPECIFIED 07/26/2018 ECHEVARRIA [...] 07/26/2018 ECHEVARRIA DO, HAILEY D Ot Z79.82 [facility] (CURRENT) USE OF ASPIRIN 07/26/2018 ECHEVARRIA DO, HAILEY D Ot Z79.899 OTHER [facility] (CURRENT) DRUG THERAPY 07/30/2018 ECHEVARRIA DO, HAILEY [...] 07/30/2018 ECHEVARRIA DO, HAILEY D Ot Z79.82 COST RECORDER (CURRENT) USE OF ASPIRIN 07/30/2018 ECHEVARRIA DO, HAILEY D Ot Z79.899 OTHER [facility] (CURRENT) DRUG THERAPY 07/31/2018 ECHEVARRIA DO, HAILEY [...] BUTTOCK 07/31/2018 ECHEVARRIA HAILEY SUMMERS Ot Z79.82 COST RECORDER (CURRENT) [facility] OTHER COST RECORDER (CURRENT) DRUG THERAPY Procedures Code Description Performed By Performed On [id number] REPOSITION RIGHT FEMORAL SHAFT WITH INT 04/17/2018 [id number] SUPPLEMENT RIGHT FEMORAL SHAFT WITH AUTO 04/17/2018 [...] culture - 01/12/18 13:35 Bacterial urine culture [id number] NRG COLONY COUNT 10,000/ML - 100,000/ML NRG [...] Bacteria identification in isolate by anaerobe culture [id number] NR FREE TEXT EXTERNAL 2 SEE COMMENTS [...] Status Pt. Type Provider Facility Loc./Unit Complaint [id number] 07/26/2018 07:52:00 07/26/2018 14:40:00 DIS Outpatient HAILEY ECHEVARRIA DO [facility] ABSCESS LEFT BUTTOCKS [id number] 07/24/2018 18:54:00 07/24/2018 23:59:59 CLS Preadmit HAILEY ECHEVARRIA DO [facility] ABCESS OF BUTTOCKS [id number] 04/16/2018 10:14:00 04/23/2018 14:00:00 DIS Inpatient HEBERT BRADY MD [facility] 4TH RT FEMUR FX,WEAKNESS [id number] 01/29/2018 00:16:00 01/29/2018 02:30:00 DIS Emergency ESTELLE MAGALLANES DO [facility] ER FEVER,RESP DISTRESS [id number] 01/20/2018 08:16:00 01/20/2018 11:59:00 DIS Emergency BARBARA TUCKER MD [facility] ER SHORTNESS OF AIR [id number] 01/12/2018 16:00:00 01/15/2018 14:50:00 DIS Inpatient KODAK GOULD MD [facility] 4TH L PYLEO [id number] 02/21/2016 13:08:00 02/21/2016 23:59:59 CLS Preadmit ESTRADA DIAN Sebas NOE [facility] ONC [id number] 02/16/2015 13:12:00 02/16/2015 23:59:59 CLS Outpatient BENEDICT KAN [facility] ONC [id number] 02/19/2014 13:51:00 02/19/2014 23:59:59 CLS Outpatient BENEDICT KAN [facility] ONC [id number] 02/13/2013 09:26:00 02/13/2013 23:59:59 CLS Outpatient BENEDICT KAN [facility] ONC [id number] 08/12/2012 13:09:00 Document Registration
[2018-08-27] MEDS ORDERED: ACETAMINOPHEN 650 MG SUPP (TYLENOL) PR PRN (19:45)
[2018-08-27] MEDS ORDERED: ACETAMINOPHEN 325 MG TABLET PO PRN (19:45)
[2018-08-27 20:00] VITALS: BP 147/69
[2018-08-27] MEDS: NS IV 1000 ML 1,000 ML IV SCH (21:12)
[2018-08-27] MEDS: CEFEPIME 2 GM/NS 50 ML IVPB IV SCH ×2 (21:13)
[2018-08-27] MEDS ORDERED: RT-ALBUTEROL/IPRATROPIUM 3 ML (DUONEB) VIAL INH PRN (23:30)
[2018-08-28] VITALS (8 sets, daily range): BP systolic 137–176; BP diastolic 66–79
[2018-08-28] MEDS: RT-ALBUTEROL/IPRATROPIUM 3 ML (DUONEB) VIAL INH SCH ×4 (03:06→15:56)
[2018-08-28 04:35] LABS: BASOPHILS % (AUTO) 0 % (0-10); EOSINOPHILS % (AUTO) 0 % (0-10); HEMATOCRIT 33 % (35-52); HEMOGLOBIN 8.6 G/DL (11.5-16.0); LYMPHOCYTES # (AUTO) 0.6 X 10^3 (1.0-4.0); LYMPHOCYTES % (AUTO) 8 % (12-44); MEAN CORPUSCULAR HEMOGLOBIN 32 PG (25-34); MEAN CORPUSCULAR HGB CONC 26 G/DL (32-36); MEAN CORPUSCULAR VOLUME 122 FL (80-99); MEAN PLATELET VOLUME 8.8 FL (7.4-10.4); MONOCYTES # (AUTO) 0.8 X 10^3 (0.0-1.0); MONOCYTES % (AUTO) 11 % (0-12); NEUTROPHILS # (AUTO) 6.3 X 10^3 (1.8-7.8); NEUTROPHILS % (AUTO) 81 % (42-75); PLATELET COUNT 205 10^3/uL (130-400); RED CELL DISTRIBUTION WIDTH 13.5 % (10.0-14.5); WHITE BLOOD COUNT 7.7 10^3/uL (4.3-11.0)
[2018-08-28 04:53] LABS: ALANINE AMINOTRANSFERASE 13 U/L (0-55); ALBUMIN 3.3 GM/DL (3.2-4.5); ALKALINE PHOSPHATASE 89 U/L (40-136); BILIRUBIN,TOTAL 0.2 MG/DL (0.1-1.0); BUN/CREATININE RATIO 80; CALCIUM 9.8 MG/DL (8.5-10.1); CARBON DIOXIDE 43 MMOL/L (21-32); CHLORIDE 100 MMOL/L (98-107); CREATININE SERUM 0.54 MG/DL (0.60-1.30); GFR ESTIMATED > 60; GLUCOSE 142 MG/DL (70-105); POTASSIUM 4.4 MMOL/L (3.6-5.0); SODIUM 148 MMOL/L (135-145); TOTAL PROTEIN 6.7 GM/DL (6.4-8.2)
[2018-08-28] MEDS: CEFEPIME 2 GM/NS 50 ML IVPB IV SCH ×2 (08:19)
[2018-08-28] MEDS: NS IV 1000 ML 1,000 ML IV SCH ×2 (08:19→18:47)
[2018-08-28] MEDS ORDERED: ASCO500T6 PO (11:10)
[2018-08-28] MEDS ORDERED: METH1TAB PO (11:10)
[2018-08-28] MEDS ORDERED: AMIT25TA9 PO (11:10)
[2018-08-28] MEDS ORDERED: PANT20TA3 PO (11:10)
[2018-08-28] MEDS ORDERED: MULT-166 PO (11:10)
[2018-08-28] MEDS ORDERED: C250T PO (11:10)
--- NOTE | 2018-08-28 12:33 | History & Physicial (CHS) ---
HPI History of Present Illness: This is a 72 yo female resident of [facility] who reported had increased confusion from her baseline for the past couple of days. Pt has sever scoliosis and becomes hypoxic with positional changes. Her baseline O2 requirement is 3L. Pt was sent to the ER as she was less alert than usual, she became responsive to her baseline in the ER and was going to be dismissed but it was decided to admit her for for IV antibiotics for a UTI and possible pneumonia. Pt was increased to 10L nc overnight reported because of a decrease in her sats which RT reports was positional. RN reports pt has been back at her baseline mental status. No fever or respiratory distress. Source: patient Exam Limitations: clinical condition Date seen by provider: Aug 28, 2018 Time Seen by Provider: 09:00 Attending Physician Benja Murray MD PCP Harpreet Arroyo MD Consult Date of Admission Aug 27, 2018 at 17:29 Home Medications Home Medications Reviewed patient Home Medication Reconciliation performed by pharmacy medication reconciliations medical lab technician and/or nursing. Patients Allergies have been reviewed. Allergies Coded Allergies: NKANo Known Allergies (Verified Allergy, Unknown, 01/12/18) CJU-Bsrbva-Cmorct Hx Patient Social History Alcohol Use: Denies Use Recreational Drug Use: No 2nd Hand Smoke Exposure: No Recent Foreign Travel: No Contact w/other who traveled: No Recent Hopitalizations: No Recent Infectious Disease Expo: No Physical Abuse Screen: No Sexual Abuse: No Immunizations Up To Date Tetanus Booster (TDap): Unknown Date of Pneumonia Vaccine: Jun 03, 2017 Date of Influenza Vaccine: Jun 04, 2018 Family Medical History Other Significan Family Hx: Her records as patient is poor historian Review of Systems (CHC) Constitutional: see HPI Reviewed Test Results Reviewed Test Results Lab Laboratory Tests 08/27/18 14:20: White Blood Count 6.0, Red Blood Count 2.74L, Hemoglobin 8.7L, Hematocrit 33L, Mean Corpuscular Volume 120H, Mean Corpuscular Hemoglobin 32, Mean Corpuscular Hemoglobin Concent 27L, Red Cell Distribution Width 13.2, Platelet Count 201, Mean Platelet Volume 8.9, Neutrophils (%) (Auto) 83H, Lymphocytes (%) (Auto) 7L , Monocytes (%) (Auto) 10, Eosinophils (%) (Auto) 0, Basophils (%) (Auto) 0, Neutrophils # (Auto) 5.0, Lymphocytes # (Auto) 0.4L, Monocytes # (Auto) 0.6, Eosinophils # (Auto) 0.0, Basophils # (Auto) 0.0, Neutrophils % (Manual) 81, Lymphocytes % (Manual) 5, Monocytes % (Manual) 8, Band Neutrophils 6, Macrocytosis SLIGHT, Stomatocytes MODERATE, Sodium Level 146H, Potassium Level 4.2, Chloride Level 96L, Carbon Dioxide Level 37H, Anion Gap 13, Blood Urea Nitrogen 48H, Creatinine 0.65, Estimat Glomerular Filtration Rate > 60, BUN/ Creatinine Ratio 74, Glucose Level 153H, Calcium Level 10.2H, Corrected Calcium 10.8H, Total Bilirubin 0.3, Aspartate Amino Transf (AST/SGOT) 15, Alanine Aminotransferase (ALT/SGPT) 11, Alkaline Phosphatase 85, Total Protein 6.6, Albumin 3.3 08/27/18 14:39: Urine Color YELLOW, Urine Clarity SLIGHTLY CLOUDY, Urine pH 6, Urine Specific Holt 1.020, Urine Protein 3+H, Urine Glucose (UA) NEGATIVE, Urine Ketones 4+H , Urine Nitrite POSITIVEH, Urine Bilirubin NEGATIVE, Urine Urobilinogen NORMAL, Urine Leukocyte Esterase 3+H, Urine RBC (Auto) 5+H, Urine RBC 25-50H, Urine WBC TNTCH, Urine Squamous Epithelial Cells 2-5, Urine Crystals NONE, Urine Bacteria LARGEH, Urine Casts NONE, Urine Mucus NEGATIVE, Urine Culture Indicated YES 08/27/18 15:50: Lactic Acid Level 0.30L 08/28/18 04:05: White Blood Count 7.7, Red Blood Count 2.70L, Hemoglobin 8.6L, Hematocrit 33L, Mean Corpuscular Volume 122H, Mean Corpuscular Hemoglobin 32, Mean Corpuscular Hemoglobin Concent 26L, Red Cell Distribution Width 13.5, Platelet Count 205, Mean Platelet Volume 8.8, Neutrophils (%) (Auto) 81H, Lymphocytes (%) (Auto) 8L , Monocytes (%) (Auto) 11, Eosinophils (%) (Auto) 0, Basophils (%) (Auto) 0, Neutrophils # (Auto) 6.3, Lymphocytes # (Auto) 0.6L, Monocytes # (Auto) 0.8, Eosinophils # (Auto) 0.0, Basophils # (Auto) 0.0, Sodium Level 148H, Potassium Level 4.4, Chloride Level 100, Carbon Dioxide Level 43H, Anion Gap 5, Blood Urea Nitrogen 43H, Creatinine 0.54L, Estimat Glomerular Filtration Rate > 60, BUN/Creatinine Ratio 80, Glucose Level 142H, Calcium Level 9.8, Corrected Calcium 10.4H, Total Bilirubin 0.2, Aspartate Amino Transf (AST/SGOT) 14, Alanine Aminotransferase (ALT/SGPT) 13, Alkaline Phosphatase 89, Total Protein 6.7, Albumin 3.3 Radiology Date of Exam: 08/27/18 CHEST 1 VIEW, AP/PA ONLY EXAM: Portable semi-erect AP chest at at 2:45 p.m. INDICATION: Confusion. FINDINGS: This exam is less than optimal as the patient is severely rotated. Allowing for this technical factor, the heart is enlarged but stable when compared to the prior exam of 04/19/2018. As seen on the prior exam, the right lung base is obscured by atelectasis/infiltrate and fluid. There also now appear to be patchy areas of pneumonia/atelectasis in the left midlung. The lung apices are clear. The mediastinum is not widened. The severe dextroscoliosis of the thoracic spine seen previously is again evident and no different. IMPRESSION: There is persistent obscuration of the right lung base by atelectasis/infiltrate and fluid. There also appear to be new patchy areas of pneumonia/atelectasis in the left midlung. Clinical follow up is recommended. Physical Exam-(CHC) Physical Exam Vital Signs VS - Last 72 Hours, by Label 08/27/18 08/27/18 08/27/18 08/27/18 14:00 18:31 18:52 19:00 Temp 96.4 96.6 Pulse 98 88 92 Resp 26 19 B/P (MAP) 125/86 (99) 121/63 (82) Pulse Ox 100 98 O2 Delivery Nasal Cannula Room Air Nasal Cannula O2 Flow Rate 3.00 3.00 08/27/18 08/27/18 08/27/18 08/27/18 20:00 20:00 20:22 20:22 Temp 96.3 Pulse 94 93 Resp 20 B/P (MAP) 147/69 (95) Pulse Ox 3 97 93 93 O2 Delivery Room Air Room Air Nasal Cannula O2 Flow Rate 3.00 FiO2 32 08/27/18 08/28/18 08/28/18 08/28/18 21:43 00:00 01:00 03:06 Temp 97.7 Pulse 107 102 Resp 18 B/P (MAP) 141/67 (91) Pulse Ox 95 90 90 O2 Delivery Nasal Cannula Room Air Nasal Cannula O2 Flow Rate 3.00 10.00 08/28/18 08/28/18 08/28/18 08/28/18 04:00 06:00 06:50 07:00 Temp 97.4 97.4 Pulse 108 108 115 Resp 16 16 B/P (MAP) 169/77 (107) 169/77 (107) Pulse Ox 92 92 97 O2 Delivery Nasal Cannula Nasal Cannula Nasal Cannula O2 Flow Rate 8.00 8.00 10.00 08/28/18 08/28/18 08/28/18 08/28/18 07:31 08:00 10:34 12:20 Temp 99.5 99.5 Pulse 116 103 Resp 40 36 B/P (MAP) 174/78 (110) 144/66 (92) Pulse Ox 92 89 99 O2 Delivery High Flow N/C High Flow N/C Nasal Cannula High Flow N/C O2 Flow Rate 10.00 10.00 10.00 10.00 Capillary Refill : Less Than 3 Seconds General Appearance: no apparent distress Respiratory: no respiratory distress, decreased breath sounds; No accessory muscle use Cardiovascular: regular rate, rhythm Back: other (severe deformity secondary to scoliosis) Extremities: normal capillary refill Skin: normal color, warm/dry Assessment/Plan Assessment/Plan Admission Dx 1. Confusion 2. UTI 3. possible pneumonia Admission Status: Observation Assessment & Plan 1. Confusion - patient reportedly has some confusion and decreased mental status at baseline ; RN reports pt is at her baseline 2. UTI - UA consistent with probably UTI which may be exacerbating the confusion - started on Cefepime, given Rocephin in the ER. - can continue po antibiotics as OP - urine culture pending - wbc normal, afebrile 3. possible pneumonia - atelectasis vs infiltrate on CXR - hypoxia positional due to scoliosis deformity - currently on antibiotics that will cover pneumonia. - weaning oxygen to baseline 3L Disp: Anticipate DC back to NH when able to get patient back on 3L nc. Patient appears to be at baseline Code Status: Pt previously was on Hospice but improved and was taken off hospice and made a full code in the NH. ER provider discussed code status with patients sister Ilda and her niece who agreed with making patient DNR status. Clinical Quality Measures DVT/VTE Risk/Contraindication: Risk Factor Score Per Nursin RFS Level Per Nursing on Admit: 4+=Very High SALMA MEJÍA DO Aug 28, 2018 12:33
[2018-08-28] MEDS ORDERED: MILK OF MAGNESIA 400 MG/5 ML 30 ML UDC PO PRN (13:00)
[2018-08-28] MEDS ORDERED: RT-ALBUTEROL SULF 2.5 MG/3 ML PRE-MIX VIAL INH PRN (13:00)
[2018-08-28] MEDS ORDERED: ACETAMINOPHEN 650 MG SUPP (TYLENOL) PR PRN (13:00)
[2018-08-28] MEDS ORDERED: ACETAMINOPHEN 325 MG TABLET PO PRN (13:00)
[2018-08-28] MEDS ORDERED: PROMETHAZINE 25 MG (PHENERGAN) SUPP RC PRN (13:00)
[2018-08-28] MEDS ORDERED: ANTACID SUSP 30 ML UDC (MYLANTA) PO PRN (13:00)
[2018-08-28] MEDS: OMEGA 3 (FISH OIL) 1000 MG CAP PO SCH (13:56)
[2018-08-28] MEDS: AMITRIPTYLINE 25 MG (ELAVIL) TAB PO SCH (13:56)
[2018-08-28] MEDS: KCL 20 MEQ TAB (K-DUR) PO SCH (16:51)
[2018-08-28] MEDS ORDERED: morphine INJ 4 MG/ML 1 ML (VIAL/SYRINGE) IVP PRN (20:30)
[2018-08-28] MEDS: SIMvastatin 20 MG (ZOCOR) TAB PO SCH (21:00)
[2018-08-28] MEDS ORDERED: METHENAMINE HIPP (UREX) 1 GM TABLET PO SCH (21:00)
[2018-08-29] VITALS (19 sets, daily range): BP systolic 68–141; BP diastolic 34–76
[2018-08-29] MEDS ORDERED: meTOprolol 5 MG/5 ML (LOPRESSOR) VIAL IV ONE (00:30)
[2018-08-29] MEDS ORDERED: meTOprolol 5 MG/5 ML (LOPRESSOR) VIAL IV PRN (00:30)
[2018-08-29] MEDS ORDERED: meTOprolol 5 MG/5 ML (LOPRESSOR) VIAL ONE (00:32)
[2018-08-29] MEDS: RT-ALBUTEROL/IPRATROPIUM 3 ML (DUONEB) VIAL INH SCH ×8 (00:32→23:00)
[2018-08-29] MEDS: CEFEPIME 2 GM/NS 50 ML IVPB IV SCH ×6 (00:41→21:58)
[2018-08-29] MEDS ORDERED: DILTIAZEM 25 MG/5 ML INJ (CARDIZEM) VIAL ONE (04:17)
[2018-08-29] MEDS ORDERED: NS (IVPB) 0 ML ONE (04:17)
[2018-08-29] MEDS ORDERED: DILTIAZEM 125 MG/25 ML IV (CARDIZEM) IV ONE (04:19)
[2018-08-29] MEDS ORDERED: DILTIAZEM 25 MG/5 ML INJ (CARDIZEM) VIAL IVP ONE (04:30)
[2018-08-29] MEDS: DILTIAZEM INJECTION 125 MG in NS (IVPB) 100 ML IV SCH ×2 (04:31→13:38)
[2018-08-29] MEDS: KCL 20 MEQ TAB (K-DUR) PO SCH ×2 (05:14→17:24)
[2018-08-29] MEDS: NS IV 1000 ML 1,000 ML IV SCH (05:16)
[2018-08-29] MEDS ORDERED: LEVOTHYROXINE 88 MCG (LEVOTHORID) TAB PO SCH (06:00)
--- NOTE | 2018-08-29 06:44 | Progress Note (SOAP) ---
Subjective Subjective/Events-last exam Patient declined from a respiratory standpoint overnight, intermittently becoming more hypoxic despite repositioning. Patient was placed on vapotherm which stabilized her oxygen saturations. Patient developed tachycardia into the 150-160's. Initially it was reported to me that patient had a history of a- fib, pt was given a dose of Lopressor IV which brought her HR down to 100. Family was present overnight and I discussed patient's status with her nephew who is the second/alternate DPOA (patient's sister is the first/primary). The nephew stated the family would like to have as much done as possible to improve patient's condition. He agreed she would not want chest compressions, or would not want to be on a ventilator long-term but would consider intubation if it would improve her condition over a short period. He said Bi-pap would be a good option if needed for respiratory support. Patient's heart rate returned to the 150's . EKG showed SVT, patient transferred to ICU for more intensive monitoring and treatment. Cardiology consulted to manage SVT. Patient seen by Dr. Guerrero, ABG showed pH 7.0 with CO2 too high to read. Dr. Guerrero discussed condition with patient's brother and nephew via phone. Nephew again agreed that patient would not want chest compressions or intubated if it meant prolonged time on the ventilator. He would like to continue other measures for her conditions including Vapotherm. Review of Systems Date Seen by Provider: Aug 29, 2018 Time Seen by Provider: 08:45 Focused Exam Lactate Level 08/27/18 15:50: Lactic Acid Level 0.30L Objective Exam Last Set of Vital Signs Vital Signs Date Time Temp Pulse Resp B/P (MAP) Pulse Ox O2 Delivery O2 Flow Rate FiO2 08/29/18 06:28 90 Vapotherm 40.00 70 08/29/18 06:00 144 27 102/59 (73) 08/29/18 05:17 99.5 Capillary Refill : Less Than 3 Seconds I&O Intake and Output 08/29/18 00:00 Intake Total 200 ml Output Total 875 ml Balance -675 ml Intake Oral 200 ml Output Urine Total 875 ml General: Other (unresponsive) Lungs: Other (decreased air movement) Heart: Regular Rate Results/Procedures Lab Microbiology 08/27/18 Blood Culture - Preliminary, Resulted No growth 08/27/18 Urine Culture - Preliminary, Resulted Escherichia coli Radiology Date of Exam: 08/27/18 CHEST 1 VIEW, AP/PA ONLY EXAM: Portable semi-erect AP chest at at 2:45 p.m. INDICATION: Confusion. FINDINGS: This exam is less than optimal as the patient is severely rotated. Allowing for this technical factor, the heart is enlarged but stable when compared to the prior exam of 04/19/2018. As seen on the prior exam, the right lung base is obscured by atelectasis/infiltrate and fluid. There also now appear to be patchy areas of pneumonia/atelectasis in the left midlung. The lung apices are clear. The mediastinum is not widened. The severe dextroscoliosis of the thoracic spine seen previously is again evident and no different. IMPRESSION: There is persistent obscuration of the right lung base by atelectasis/infiltrate and fluid. There also appear to be new patchy areas of pneumonia/atelectasis in the left midlung. Clinical follow up is recommended. Assessment/Plan Assessment/Plan Assessment & Plan Acute Respiratory Failure w/ hypoxia and hypercapnea 08/28/18 - decline in respiratory status and mental status overnight. Currently on Vapotherm 40 at 100% FIO2 secondary to hypoxia with sats in the upper 90's. pH 7.0 w/ CO2 too high to read - After discussion with Dr. Guerrero and the family will continue Vapotherm but will not consider intubation at this time - Dr. Guerrero discussed poor prognosis with family. Anticipate that condition will continue to deteriorate. UTI - started on Cefepime, given Rocephin in the ER. - can continue po antibiotics as OP - urine culture pending - wbc normal, afebrile 08/28 - urine culture growing E coli pneumonia - atelectasis vs infiltrate on CXR - currently on antibiotics that will cover pneumonia. Confusion - patient is unresponsive A-flutter w/ RVR 08/29 - Dr. Bertrand consulted; started pt on Cardizem drip, Lovenox; rate currently controlled. Code Status: DNR/DNI Clinical Quality Measures DVT/VTE Risk/Contraindication: Risk Factor Score Per Nursin RFS Level Per Nursing on Admit: 4+=Very High SALMA MEJÍA DO Aug 29, 2018 06:44
--- NOTE | 2018-08-29 06:56 | Consultation-Cardiology ---
HPI-Cardiology Cardiology Consultation Date of Consultation 08/29/18 Date of Admission Time Seen by Provider: 06:50 Indication: atrial flutter HPI 72-year-old lady with history of scoliosis, advanced COPD. Appeared that she was admitted earlier on August 27, 2018 for pneumonia and UTI. Has been treated. Transferred around 4 a.m. to the intensive care unit and I was called for evaluation for tachycardia with a heart rate 140. I started on Cardizem drip. Upon my evaluation her heart rate is better. Patient is unresponsive, tachypneic and shallow breathing. Not following commands, opening her eyes but not communicating. Unable to provide any history, history was obtained by reviewing her records, no previous cardiac history was reported, has history of hypertension hyperlipidemia Home Medications & Allergies Allergies: Coded Allergies: NKANo Known Allergies (Verified Allergy, Unknown, 01/12/18) Home Medication List Reviewed: Yes YOQ-Orkpmc-Jaevtr Hx Patient Social History Marital Status: Employed/Student: retired Alcohol Use: Denies Use Recreational Drug Use: No 2nd Hand Smoke Exposure: No Recent Foreign Travel: No Recent Infectious Disease Expo: No Recent Hopitalizations: No Physical Abuse Screen: No Sexual Abuse: No Immunizations Up To Date Tetanus Booster (TDap): Unknown Date of Pneumonia Vaccine: Jun 03, 2017 Date of Influenza Vaccine: Jun 04, 2018 Past Medical History past medical history as described below Family Medical History Family Medical Hx Unable to provide family history Review of Systems Constitutional: weakness, other (lethargic and unresponsive, unable to provide review of systems) Reviewed Test Results Reviewed Test Results Lab no labs done today, I will evaluate CBC and CMP Radiology Date of Exam: 08/27/18 CHEST 1 VIEW, AP/PA ONLY EXAM: Portable semi-erect AP chest at at 2:45 p.m. INDICATION: Confusion. FINDINGS: This exam is less than optimal as the patient is severely rotated. Allowing for this technical factor, the heart is enlarged but stable when compared to the prior exam of 04/19/2018. As seen on the prior exam, the right lung base is obscured by atelectasis/infiltrate and fluid. There also now appear to be patchy areas of pneumonia/atelectasis in the left midlung. The lung apices are clear. The mediastinum is not widened. The severe dextroscoliosis of the thoracic spine seen previously is again evident and no different. IMPRESSION: There is persistent obscuration of the right lung base by atelectasis/infiltrate and fluid. There also appear to be new patchy areas of pneumonia/atelectasis in the left midlung. Clinical follow up is recommended. Physical Exam Vital Signs Vital Signs - First Documented 08/27/18 08/27/18 14:00 20:22 Temp 96.4 Pulse 98 Resp 26 B/P (MAP) 125/86 (99) Pulse Ox 100 O2 Delivery Nasal Cannula O2 Flow Rate 3.00 FiO2 32 Capillary Refill : Less Than 3 Seconds Height, Weight, BMI Height: 5'0.00" Weight: 111lbs. 1.6oz. [id number]; 18.6 BMI Method:Estimated General Appearance: Chronically ill, Severe Distress, Thin HEENT: Pale Conjunctivae (L), Pale Conjunctivae (R) Neck: Other (severe scoliosis, unable to move her neck) Respiratory: Decreased Breath Sounds, Respiratory Distress, Rhonci Cardiovascular: Systolic Murmur, Gallop/S3, Irregularly Irregular, Tachycardia Gastrointestinal: Soft, Abnormal Bowel Sounds Back: Other (scoliosis) Extremity: Normal Inspection, No Pedal Edema Skin: Normal Color A/P-Cardiology Admission Diagnosis Acute respiratory failure Pneumonia UTI Atrial fibrillation Assessment/Plan Acute respiratory failure, patient is on 40 L Vapotherm, I will consult Dr. Guerrero for evaluation, patient may require intubation or noninvasive respiratory assistance Urinary tract infection, receiving antibiotics. Pneumonia, advanced respiratory failure. Receiving antibiotics. Atrial flutter with tachycardia cardia, new onset started late this evening, it was reported around 8 p.m. the first vitals with a heart rate 144. Started on Cardizem drip, heart rate is better controlled. I will add Lovenox Severe scoliosis, deformity of the back and neck. Hypertension by history, currently borderline hypotensive with the Cardizem drip. Continue to monitor blood pressure and use IV fluid support Hyperlipidemia maintained on simvastatin Clinical Quality Measures DVT/VTE Risk/Contraindication: Risk Factor Score Per Nursin RFS Level Per Nursing on Admit: 4+=Very High NISH AVILA MD Aug 29, 2018 06:56
--- NOTE | 2018-08-29 07:01 | Pulmonary Consultation ---
History of Present Illness History of Present Illness Date of Consultation 08/29/18 06:56 Time Seen by Provider: 06:57 Date of Admission History of Present Illness Allergies and Home Medications Allergies Coded Allergies: Stephan Known Allergies (Verified Allergy, Unknown, 01/12/18) Home Medications Acetaminophen 325 Mg Tablet, 650 MG PO Q4H PRN for PAIN-MILD, (Reported) TAKES 2 (325MG) TABLETS Acetaminophen 650 Mg Supp.rect, 650 MG RC Q4H PRN for PAIN-MILD OR TEMPATURE, ( Reported) Albuterol Sulfate 1 Puff Puff, 2 PUFF IN Q4H PRN for SHORTNESS OF BREATH, ( Reported) Amitriptyline HCl 25 Mg Tablet, 25 MG PO Q12H, (Reported) Ascorbic Acid 500 Mg Tablet, 500 MG PO DAILY, (Reported) Ascorbic Acid 250 Mg Tab, 500 MG PO DAILY, (Reported) Aspirin 81 Mg Tablet.dr, 81 MG PO DAILY, (Reported) Calcium Carbonate/Vitamin D3 1 Each Tablet, 1 TAB PO BID, (Reported) Cholecalciferol (Vitamin D3) 5,000 Unit Capsule, 5,000 UNIT PO DAILY, (Reported) Citalopram Hydrobromide 20 Mg Tablet, 20 MG PO DAILY, (Reported) Iron Polysaccharide Complex 150 Mg Capsule, 150 MG PO DAILY, (Reported) Levothyroxine Sodium 88 Mcg Tablet, 88 MCG PO 0600, (Reported) Mag Hydrox/Al Hydrox/Simeth 30 Ml Oral.susp, 30 ML PO Q4H PRN for INDIGESTION, ( Reported) Magnesium Hydroxide 400 Mg/5 Ml Oral.susp, 30 ML PO DAILY PRN for CONSTIPATION- 7TH LINE, (Reported) Methenamine Hippurate 1 Gm Tablet, 1 GM PO BID, (Reported) Multivitamin with Minerals 1 Each Tablet, 1 TAB PO DAILY, (Reported) Alviso 3 Polyunsat Fatty Acids 1,000 Mg Cap, 1,000 MG PO TID, (Reported) Pantoprazole Sodium 20 Mg Tablet.dr, 20 MG PO DAILY, (Reported) Potassium Chloride 20 Meq Tab.er.prt, 20 MEQ PO BID, (Reported) Pravastatin Sodium 40 Mg Tablet, 40 MG PO HS, (Reported) Promethazine HCl 25 Mg Supp.rect, 25 MG RC Q4H PRN for NAUSEA/VOMITING-2ND LINE, (Reported) Sennosides/Docusate Sodium 1 Each Tablet, 2 TAB PO BID, (Reported) Topiramate 25 Mg Tablet, 25 MG PO DAILY, (Reported) Past Kcvrcmo-Sjpyhg-Xuyooh Hx Patient Social History Alcohol Use: Denies Use Recreational Drug Use: No 2nd Hand Smoke Exposure: No Recent Foreign Travel: No Contact w/Someone Who Travel: No Recent Infectious Disease Expo: No Recent Hopitalizations: No Physical Abuse: No Sexual Abuse: No Immunizations Up To Date Tetanus Booster (TDap): Unknown Date of Pneumonia Vaccine: Jun 03, 2017 Date of Influenza Vaccine: Jun 04, 2018 Seasonal Allergies Seasonal Allergies: No Past Medical History Surgeries: Yes (COLON RESECTION FOR CANCER; RODS IN BACK/REMOVED; HYST/BSO) Abdominal, Bowel Surgery, Hysterectomy, Oophorectomy, Orthopedic Respiratory: Yes COPD Cardiac: Yes High Cholesterol, Hypertension Neurological: Yes Dementia : No 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) Female Reproductive Disorders: Denies Sexually Transmitted Disease: No HIV/AIDS: No Genitourinary: Yes (URINARY RETENTION) UTI-Chronic Gastrointestinal: Yes (COLON CANCER) Musculoskeletal: Yes (SEVERE SCOLIOSIS) Back Injury, Scoliosis, Chronic Back Pain, Contracture Endocrine: Yes Hypothyroidsim HEENT: No Cancer: Yes Colon Did You Recieve Any Treatments: Yes What Type of Treatment Did You: Chemotherapy, Surgical Intervention Psychosocial: No Integumentary: No Blood Disorders: Yes (ANEMIA) Family Medical History Her records as patient is poor historian Review of Systems Time Seen by Provider: 07:18 Sepsis Event Evaluation Height, Weight, BMI Height: 5'0.00" Weight: 111lbs. 1.6oz. 50.564802kd; 18.6 BMI Method:Estimated Exam Exam Vital Signs Date Time Temp Pulse Resp B/P (MAP) Pulse Ox O2 Delivery O2 Flow Rate FiO2 08/29/18 06:28 90 Vapotherm 40.00 70 08/29/18 06:00 144 27 102/59 (73) 92 Vapotherm 60.00 40.00 08/29/18 05:45 144 17 115/61 (79) 92 Vapotherm 60.00 40.00 08/29/18 05:30 144 33 115/65 (82) 95 Vapotherm 60.00 40.00 08/29/18 05:17 99.5 08/29/18 05:15 144 16 114/63 (80) 95 Vapotherm 60.00 40.00 08/29/18 05:00 144 29 115/62 (79) 94 Vapotherm 60.00 40.00 08/29/18 04:45 128 34 107/61 (76) 94 Vapotherm 60.00 40.00 08/29/18 04:30 144 28 138/76 (96) 93 Vapotherm 60.00 40.00 08/29/18 04:15 146 36 141/70 (93) 93 Vapotherm 60.00 40.00 08/29/18 04:04 150 08/29/18 04:03 101.0 147 33 134/69 (90) 93 Vapotherm 70.00 40.00 08/29/18 04:00 93 Vapotherm 40.00 70 08/29/18 03:47 101.0 08/29/18 03:45 93 Vapotherm 40.00 70 08/29/18 01:02 96 08/29/18 01:00 144 08/28/18 23:42 99.6 145 30 176/79 (111) Vapotherm 70.00 40.00 08/28/18 22:09 100.6 08/28/18 20:20 Vapotherm 40.00 70 08/28/18 20:00 100.4 111 30 137/69 (91) Vapotherm 08/28/18 19:00 110 08/28/18 18:20 32 High Flow N/C 10.00 08/28/18 16:28 98.7 109 28 153/69 (97) 91 High Flow N/C 5.00 08/28/18 13:00 99 High Flow N/C 6.00 08/28/18 13:00 103 08/28/18 12:20 97.6 103 36 144/66 (92) 99 High Flow N/C 10.00 08/28/18 10:34 89 Nasal Cannula 10.00 08/28/18 08:00 High Flow N/C 10.00 08/28/18 07:31 99.5 116 40 174/78 (110) 92 High Flow N/C 10.00 08/28/18 07:00 115 I & O 08/29/18 06:59 Intake Total 1000 ml Output Total 815 ml Balance 185 ml Height & Weight Height: 5'0.00" Weight: 111lbs. 1.6oz. 50.616195xd; 18.6 BMI Method:Estimated General Appearance: WD/WN, Moderate Distress HEENT: PERRL/EOMI, TMs Normal Neck: Other (significant kyphosis of the upper thoracic spine with the neck flexed forward laying on the chest and tilted to the right) Respiratory: No Accessory Muscle Use, No Respiratory Distress, Decreased Breath Sounds Cardiovascular: Irregularly Irregular, Tachycardia Capillary Refill: Less Than 3 Seconds Extremity: Normal Capillary Refill, Normal Inspection Neurologic/Psychiatric: Other (unresponsive ) Skin: Normal Color, Warm/Dry Results Lab Laboratory Tests 08/27/18 14:20 08/28/18 04:05 Assessment/Plan Assessment/Plan Acute respiratory failure with severe hypoxia -PT is currently requiring vapotherm with 100 % oxygen Currently unresponsive -Check ABG -Currently pt is DNR however ok for short term intubation -Pt will be a difficult high risk intubation and difficult to wean -Check BNP Sepsis with Pneumonia with atelectasis and hypoxia Tm 101 (pt has hx of MRSA) --Continue Cefepime add vancomycin -PT is not a good candidate for aggressive IVF New onset Afib -Cardiology is consulted -Lovenox theraputic dosing given Hypothyroid -Pt is not able to take PO meds -Check TSH -Change Synthroid to IV Hypernatremia/hyperchloremia -Change to 1/2 NS at 50cc/hr UTI Pt's prognosis is poor. right now she is a DNR but ok for short term intubation. Pt will be a very difficult intubation and wean. ABG is pending. UPDATE: I CALLED AND DISCUSSED PATIENTS CURRENT CONDITION WITH PRUDENCIO AND SUSAN. SUSAN STATED HE DOES NOT THINK PT SHOULD BE PLACED ON ANY LIVE SUPPORT. PRUDENCIO HAD A LOT OF QUESTIONS WHICH WERE ANSWERED IN DETAIL WITH PHONE ON SPEAKER WITH RN AND DR. MEJÍA PRESENT. PRUDENCIO AGREED TO FULL DNR NO INTUBATION, NO CODE, AND NO BIPAP. PRUDENCIO WANTS TO CONTINUE VAPOTHERM FOR NOW AND CONTINUE ABX TO SEE HOW SHE DOES OVER THE NEXT 24HOURS. THEY UNDERSTAND HER PROGNOSIS IS VERY POOR AND SHE IS NOT EXPECTED TO RECOVER FROM THIS HOSPITALIZATION. HYUN MARTINEZ DO Aug 29, 2018 07:01
[2018-08-29] MEDS ORDERED: PHARMACY TO DOSE IV SCH (07:30)
[2018-08-29] MEDS ORDERED: VANCOMYCIN 1 GM/NS 250 ML IVPB IV NR ×2 (07:30)
[2018-08-29] MEDS: ENOXAPARIN 60 MG/0.6 ML (LOVENOX) SYR SC SCH ×2 (07:50→20:04)
[2018-08-29] MEDS: 1/2 NS IV SOLUTION 1,000 ML IV SCH (07:51)
[2018-08-29 08:03] LABS: HEMOGLOBIN 8.3 G/DL (11.5-16.0); MEAN PLATELET VOLUME 9.4 FL (7.4-10.4); RED BLOOD COUNT 2.65 10^6/uL (4.35-5.85); RED CELL DISTRIBUTION WIDTH 13.6 % (10.0-14.5); WHITE BLOOD COUNT 7.2 10^3/uL (4.3-11.0)
[2018-08-29 08:05] LABS: ABG OXYGEN SATURATION 99 % (94-100); ABG PO2 131 MMHG (79-93)
[2018-08-29 08:24] LABS: ALANINE AMINOTRANSFERASE 8 U/L (0-55); ALKALINE PHOSPHATASE 68 U/L (40-136); BILIRUBIN,TOTAL 0.2 MG/DL (0.1-1.0); BUN/CREATININE RATIO 60; CALCIUM 9.2 MG/DL (8.5-10.1); CARBON DIOXIDE 40 MMOL/L (21-32); CHLORIDE 106 MMOL/L (98-107); CREATININE SERUM 0.62 MG/DL (0.60-1.30); GFR ESTIMATED > 60; GLUCOSE 128 MG/DL (70-105); MAGNESIUM 1.9 MG/DL (1.8-2.4); PHOSPHORUS 3.3 MG/DL (2.3-4.7); POTASSIUM 4.1 MMOL/L (3.6-5.0); SODIUM 155 MMOL/L (135-145); TOTAL PROTEIN 6.2 GM/DL (6.4-8.2)
[2018-08-29 08:27] LABS: ALLENS TEST YES-POS; INSPIRED O2 40; PATIENT TEMP 97.4; VENTILATOR NO
[2018-08-29 09:00] LABS: ABG PH 7.04 (7.37-7.43)
[2018-08-29] MEDS ORDERED: IRON POLYSAC 150 MG CAP (NIFEREX) PO SCH (09:00)
[2018-08-29] MEDS ORDERED: LEVOTHYROXINE 100 MCG INJ (SYNTHROID) VIAL IV SCH (09:00)
[2018-08-29] MEDS ORDERED: PANTOPRAZOLE 20 MG TABLET (PROTONIX) PO SCH (09:00)
[2018-08-29] MEDS ORDERED: MULTIVIT W/MINERALS TAB (THERAGRAN M) PO SCH (09:00)
[2018-08-29] MEDS ORDERED: VITAMIN D3 5,000 UNITS (CHOLECALCIFEROL ) CAPSULE PO SCH (09:00)
[2018-08-29] MEDS ORDERED: ASPIRIN E.C. 81 MG (ECOTRIN) TAB PO SCH (09:00)
[2018-08-29] MEDS ORDERED: toPIRamate 25 MG (TOPAMAX) TAB PO SCH (09:00)
[2018-08-29] MEDS ORDERED: ASCORBIC ACID (VIT C) 500 MG TABLET PO SCH (09:00)
[2018-08-29] MEDS ORDERED: NON-FORMULARY MEDICATION 1 EA EA (Ascorbic Acid (Vitamin C) 500 MG) PO SCH (09:00)
[2018-08-29] MEDS: CALCIUM CARB + VIT D 600 MG (CALCARB + D) TAB PO SCH ×2 (09:33→20:34)
[2018-08-29] MEDS: SENNA W/DOCUSATE (SENOKOT S) TABLET PO SCH ×2 (09:34→20:35)
[2018-08-29] MEDS: OMEGA 3 (FISH OIL) 1000 MG CAP PO SCH ×3 (09:34→20:35)
[2018-08-29] MEDS: AMITRIPTYLINE 25 MG (ELAVIL) TAB PO SCH (09:35)
[2018-08-29] MEDS ORDERED: LACTATED RINGERS 1,000 ML IV ONE (12:45)
[2018-08-29] MEDS ORDERED: morphine INJ 4 MG/ML 1 ML (VIAL/SYRINGE) IVP PRN (18:15)
[2018-08-29] MEDS ORDERED: LORazepam INJ 2 MG/ML (ATIVAN) VIAL IVP PRN (18:30)
[2018-08-29] MEDS: SIMvastatin 20 MG (ZOCOR) TAB PO SCH (20:38)
[2018-08-30] VITALS: BP 81/46
[2018-08-30] MEDS: AMITRIPTYLINE 25 MG (ELAVIL) TAB PO SCH (01:00)
[2018-08-30] MEDS: 1/2 NS IV SOLUTION 1,000 ML IV SCH (02:01)
[2018-08-30] MEDS: RT-ALBUTEROL/IPRATROPIUM 3 ML (DUONEB) VIAL INH SCH (02:08)
[2018-08-30 04:01] VITALS: BP 81/44
[2018-08-30] MEDS: KCL 20 MEQ TAB (K-DUR) PO SCH (06:33)
--- NOTE | 2018-08-30 07:29 | Diagnostic Imaging Report ---
INDICATION: UTI. Pneumonia. COMPARISON: 08/27/2018 FINDINGS: Single frontal radiographic view of the chest was obtained. Evaluation is degraded secondary to severe dextroscoliotic deformity in limitations of patient positioning. There does, however appear to be interval development of moderate right-sided effusion. There is also obscuration of left hemidiaphragm suggestive of left basilar effusion or other alveolar airspace disease. No pneumothorax is seen on either side. Cardiac silhouette remains enlarged. Pulmonary vasculature appears prominent as well. IMPRESSION: 1. Cardiomegaly with pulmonary vascular congestion. 2. Interval development of moderate right-sided effusion. 3. Probable small left basilar effusion with associated atelectasis. Underlying infiltrate not entirely excluded. Dictated by: Dictated on workstation # [id number]
[2018-08-30] MEDS ORDERED: VANCOMYCIN 750 MG/NS 250 ML IVPB IV SCH ×2 (07:30)
[2018-08-31] MEDS ORDERED: TROUGH ORDER-PHARMACY XX NR (06:30)
--- NOTE | 2018-08-31 14:40 | Discharge Summary ---
Diagnosis/Chief Complaint Date of Admission Aug 27, 2018 at 17:29 Date of Discharge Aug 30, 2018 at 10:20 Admission Diagnosis Admission Diagnosis 1. Confusion 2. UTI 3. possible pneumonia Discharge Diagnosis Acute Respiratory Failure w/ hypoxia and hypercapnea 08/28/18 - decline in respiratory status and mental status overnight. Currently on Vapotherm 40 at 100% FIO2 secondary to hypoxia with sats in the upper 90's. pH 7.0 w/ CO2 too high to read - After discussion with Dr. Guerrero and the family will continue Vapotherm but will not consider intubation at this time - Dr. Guerrero discussed poor prognosis with family. Anticipate that condition will continue to deteriorate. UTI - started on Cefepime, given Rocephin in the ER. - can continue po antibiotics as OP - urine culture pending - wbc normal, afebrile 08/28 - urine culture growing E coli pneumonia - atelectasis vs infiltrate on CXR - currently on antibiotics that will cover pneumonia. Confusion - patient is unresponsive A-flutter w/ RVR 08/29 - Dr. Bertrand consulted; started pt on Cardizem drip, Lovenox; rate currently controlled. Code Status: DNR/DNI Patients condition continued to decline; time of 08/30/18 0640 Chief Complaint/HPI Chief Complaint/HPI This is a 72 [facility] female resident of [facility] who reported had increased confusion from her baseline for the past couple of days. Pt has sever scoliosis and becomes hypoxic with positional changes. Her baseline O2 requirement is 3L. Pt was sent to the ER as she was less alert than usual, she became responsive to her baseline in the ER and was going to be dismissed but it was decided to admit her for for IV antibiotics for a UTI and possible pneumonia. Pt was increased to 10L nc overnight reported because of a decrease in her sats which RT reports was positional. RN reports pt has been back at her baseline mental status. No fever or respiratory distress. Discharge Summary-Simple/Stand Consultations Discharge Physical Examination Allergies: Coded Allergies: NKANo Known Allergies (Verified Allergy, Unknown, 01/12/18) Vitals & I&Os Vital Sign - Last 12Hours Date Time Temp Pulse Resp B/P (MAP) Pulse Ox O2 Delivery O2 Flow Rate FiO2 08/30/18 04:01 98.8 85 18 81/44 (56) 94 Vapotherm 100.00 40.00 08/30/18 02:08 100 Hospital Course See final discharge diagnosis. Radiology Reviewed Date of Exam: 08/27/18 CHEST 1 VIEW, AP/PA ONLY EXAM: Portable semi-erect AP chest at at 2:45 p.m. INDICATION: Confusion. FINDINGS: This exam is less than optimal as the patient is severely rotated. Allowing for this technical factor, the heart is enlarged but stable when compared to the prior exam of 04/19/2018. As seen on the prior exam, the right lung base is obscured by atelectasis/infiltrate and fluid. There also now appear to be patchy areas of pneumonia/atelectasis in the left midlung. The lung apices are clear. The mediastinum is not widened. The severe dextroscoliosis of the thoracic spine seen previously is again evident and no different. IMPRESSION: There is persistent obscuration of the right lung base by atelectasis/infiltrate and fluid. There also appear to be new patchy areas of pneumonia/atelectasis in the left midlung. Clinical follow up is recommended. Discharge Instructions to patient/family Please see electronic discharge instructions given to patient. Discharge Medications Reviewed and agree with Discharge Medication list on patient's Discharge Instruction sheet Clinical Quality Measures DVT/VTE Risk/Contraindication: Risk Factor Score Per Nursin RFS Level Per Nursing on Admit: 4+=Very High Comfort Measures/ Type of Care: Comfort Measures Date of : Aug 30, 2018 Time of : 06:40 SALMA MEJÍA DO Aug 31, 2018 14:40
== END 2018-08-30 10:20 | disposition expired | DRG 193 ==
LOC: EDUNIT# 14:00 → ER 14:01 → 4TH 17:29 → ICU 08-29 04:45 → 4TH 08-29 15:00
PROVIDERS: ADMIT Family Medicine; ATTEND Family Medicine
DX: J18.1 Lobar pneumonia, unspecified organism (principal); J44.0 Chronic obstructive pulmonary disease with (acute) lower respiratory infection; N39.0 Urinary tract infection, site not specified; J96.01 Acute respiratory failure with hypoxia; A41.9 Sepsis, unspecified organism; I48.92 Unspecified atrial flutter; E87.0 Hyperosmolality and hypernatremia; Z66 Do not resuscitate; Z51.5 Encounter for palliative care; M41.9 Scoliosis, unspecified; M40.204 Unspecified kyphosis, thoracic region; I10 Essential (primary) hypertension; E78.00 Pure hypercholesterolemia, unspecified; F03.90 Unspecified dementia, unspecified severity, without behavioral disturbance, psychotic disturbance, mood disturbance, and anxiety; R33.9 Retention of urine, unspecified; E03.9 Hypothyroidism, unspecified; D64.9 Anemia, unspecified; Z85.038 Personal history of other malignant neoplasm of large intestine; Z90.49 Acquired absence of other specified parts of digestive tract; Z92.21 Personal history of antineoplastic chemotherapy; E78.5 Hyperlipidemia, unspecified; B96.20 Unspecified Escherichia coli [E. coli] as the cause of diseases classified elsewhere
CPT/HCPCS: 36415; 51702; 70450; 71045; 80053; 81000; 82805; 83605; 83735; 83880; 84100; 84443; 85007; 85025; 85027; 87040; 87077; 87081; 87088; 87186; 93005; 94640; 94760; 96361; 96365

== ENCOUNTER → 2018-08-27 | Outpatient (CLI) | payer MEDICARE, OTHER ==
[~2018-08-27] MED LIST changes: +ASCO500T6 PO; +C250T PO; +CEFD300C3 PO; +METH1TAB PO; +MULT-166 PO; +PANT20TA3 PO; +SULF1TAB35 PO
== END ==
LOC: CVS 11:45
PROVIDERS: ATTEND Internal Medicine
DX: N39.0 Urinary tract infection, site not specified (principal)
CPT/HCPCS: 87088